=== PATIENT | female | born 1965 | race Caucasian/White ===

== ENCOUNTER → 2016-12-18 | Outpatient (CLI) | payer BC ==
--- NOTE | 2016-12-18 16:52 | US ---
EXAMINATION TYPE: US extremity nonvasc mass RT DATE OF EXAM: 12/18/2016 3:49 PM COMPARISON: NONE CLINICAL HISTORY: 51-year-old female R22.9 Mass in Right lower extremity. TECHNIQUE: Targeted sonographic examination of the patient's sites of 2 palpable abnormalities along the right thigh. FINDINGS: Patient has two palpable lumps on the right thigh. One is located laterally measuring 14 x 9 x 12 mm. A second is located at the mid thigh measuring 11 x 7 x 11 mm. Both of these are round and heterogeneously echogenic without internal vascularity and appear to be l ocated within the subcutaneous fat. IMPRESSION: Rounded echogenic areas measuring 1.4 and 1.1 cm within the subcutaneous fat corresponding to the 2 p alpable lumps along the right thigh. Correlate for possible lipomas. If the areas become symptomatic or there is growth, surgical excision can be considered.
== END | disposition home or self-care (01) ==
LOC: RADUSWWP 15:32
PROVIDERS: ATTEND Family Medicine
DX: R22.9 Localized swelling, mass and lump, unspecified (principal)

== ENCOUNTER → 2016-12-25 | Outpatient (CLI) | payer BC ==
[2016-12-25 10:53] LABS: Blood Urea Nitrogen 19 mg/dL (7-17); Non-African American GFR(MDRD) >60 (>60 ml/min/1.73 sqM)
--- NOTE | 2016-12-25 18:11 | MR ---
EXAMINATION TYPE: MR brain wo/w con DATE OF EXAM: 12/25/2016 11:45 AM COMPARISON: 09/18/2015 HISTORY: 51-year-old female with headaches TECHNIQUE: Multiplanar, multisequence images of the brain and brainstem were acquired before and aft er administration of 20 mL IV MultiHance. Diffusion weighted imaging is performed. FINDINGS: No evidence for acute infarction, hemorrhage, mass, mass effect, midline shift, herniation, effacemen t of basal cisterns, or extra-axial fluid collection. The ventricles and sulci are age-appropriate. Major intracranial flow voids are intact. T2/FLAIR weighted sequences show no white signal abnormality. Midline structures demonstrate normal morphology. The craniocervical junction is normal. Post contrast images demonstrate no evidence of pathologic enhancement. Dural venous sinuses are pat ent. The visualized sinuses are clear and the globes are intact. Slight leftward nasal septal deviation. IMPRESSION: No acute intracranial abnormality or abnormal white matter signal changes seen. No enhancing intracra nial lesions.
== END | disposition home or self-care (01) ==
LOC: RADMRIMAIN 10:23
PROVIDERS: ATTEND Psychiatry & Neurology Psychiatry
DX: R51 Headache (principal)
CPT/HCPCS: 70553; 82565; 84520

== ENCOUNTER → 2017-02-14 | Outpatient (CLI) | payer BC ==
[2017-02-14 15:55] VITALS: BP 153/82; PULSE 84; RESP 16; TEMP 98.4; BMI 37.0
--- NOTE | 2017-03-13 16:11 | P.PN ---
Progress Note - Text DATE OF SERVICE: 02/14/2017. CHIEF COMPLAINT: Bariatric assessment. HISTORY OF PRESENT ILLNESS: Ana Lilia Hayes is a 50-year-old female who comes in at 5 feet 4-1/4 inches. [place] body weight is 144 pounds. She comes in weighing 217 pounds. Her weight was 255 pounds. She has gained 9 pounds in 7 months. Overall total weight loss of 38 pounds despite dietary surveillance and counseling. Her percent excess weight loss is 34 %. Body mass index is reduced from 43.5 down to 37. She has history of gastroesophageal reflux. She comes in with persistent problems of panniculitis despite local treatment and skin care. Despite her initial success with weight loss including caloric restriction, she presents with chronic problems with maintaining her weight loss hence her presentation today. PAST SURGICAL HISTORY: 1. Obstructive sleep apnea. 2. Morbid obesity. 3. Chronic headaches. 4. Osteoarthritis of bilateral knees. 5. Osteoarthritis of the lower back. 6. Gastroesophageal reflux disease. 7. Prior history of DVT. 8. Anxiety. 9. Depression. PAST SURGICAL HISTORY: 1. Appendectomy. 2. Bilateral knee arthroscopies. 3. Multiple spinal lumbar punctures. 4. Sinus surgery. 5. Tonsillectomy. 6. Upper endoscopy. MEDICATIONS: 1. ( ). 2. Adipex. 3. Zofran. 4. Prilosec. 5. Multivitamin. 6. Toprol-XL. 7. Neurontin. 8. Flonase. 9. Lexapro. 10. Vitamin D. 11. ( ). 12. Biotin. 13. Xanax. 14. Nystatin powder. ALLERGIES: 1. DARVOCET. 2. ASPIRIN. 3. LAMICTAL. 4. OXYCODONE. 5. FLUOXETINE. SOCIAL HISTORY: Lifelong nontobacco user. FAMILY HISTORY: Pertinent for colon cancer in father in his early 40s. Had Sj'ogren's disease. No reports of esophageal or stomach cancer. His family history of esophageal dysphagia such as achalasia. REVIEW OF SYSTEMS: CONSTITUTIONAL:[place] body weight is 144 pounds. She comes in weighing 217 pounds. Her weight was 255 pounds. She has gained 9 pounds in 7 months. Overall total weight loss of 38 pounds despite dietary surveillance and counseling. Her percent excess weight loss is 34 %. Body mass index is reduced from 43.5 down to 37. GASTROINTESTINAL: Has history of gastroesophageal reflux. No reports of diarrhea. MUSCULOSKELETAL: Chronic pain of the bilateral knees. Has lower back pain as well as knee pain and bilateral foot pain, osteoarthritis. HEENT: No troubles with vision or hearing. No reports of active dysphagia. RESPIRATORY: Has chronic cough. Has obstructive sleep apnea. Prior history of bronchiectasis. CARDIOVASCULAR: No reports of recent chest pain, heart attack. NEURO: History of chronic headaches. She has been on work-up for her pseudotumor cerebri. Has multiple spinal taps. PSYCH: History of anxiety and depression. HEMATOLOGIC: Prior history of DVT. No reports of easy bruising or bleeding. PHYSICAL EXAM: VITAL SIGNS: 5 feet 4 and a quarter inches frame. Weight 217 pounds. Her body mass index 37.0 Vital Signs Temp 98.4 F 02/14/17 15:48 Pulse 84 02/14/17 15:48 Resp 16 02/14/17 15:48 BP 153/82 02/14/17 15:48 Pulse Ox . ABDOMEN: Soft, nontender, nondistended. GENERAL: Well-developed female in no acute distress. HEENT: No sclerae icterus. Extraocular movements grossly intact. Moist buccal mucosa. NECK: Supple without lymphadenopathy. CHEST: Nonlabored respirations. Equal bilateral excursions. CARDIOVASCULAR: Regular rate and rhythm. MUSCULOSKELETAL: No clubbing, cyanosis, or edema. NEURO: No focal or lateralizing signs. Cranial nerves II through XII grossly within normal limits. PSYCH: Appropriate affect. Alert and oriented to person, place and time. ASSESSMENT: 1. Morbid obesity due to excess caloric intake. 2. Body mass index reduced from 43.5 down to 37. 3. Osteoarthritis of the bilateral knees, secondary to morbid obesity. 4. Osteoarthritis of the bilateral feet, secondary to morbid obesity. 5. Osteoarthritis of the lower back, secondary to morbid obesity. 6. Obstructive sleep apnea. 7. Pseudotumor cerebri. 8. Anxiety. 9. Depression. 10. Prior personal history of DVT. 11. Food intolerance to eggs. 12. Familial history of colon cancer high risk. 13. Abnormal EKG. 14. Chronic cough. 15. Gastroesophageal reflux disease. 16. Vitamin D deficiency. 17. Hypertensive heart disease. 18. Gastritis. 19. Diaphragmatic hiatal hernia. 20. Panniculitis. 21. History of binge eating. 22. Family history of achalasia, esophageal dysmotility. PLAN: 1. Recommend completion of the bariatric profile including psych assessment. 2. Recommend completion of cardiac risk assessment. 3. Dietitian follow-up for nutrition classes. 4. Will need repeat bariatric blood work for nutritional deficiencies as her last is almost 1 year ago. 5. Medical risk assessment for her to procedure described. 6. She has family history of esophageal dysmotility including gastroesophageal reflux disease. Initially she was evaluating for the sleeve gastrectomy. Increased risk of esophageal dysmotility may occur and she as a result, she will evaluate her bariatric options.
== END | disposition home or self-care (01) ==
LOC: BARWHC3 14:23
PROVIDERS: ATTEND Surgery Plastic and Reconstructive Surgery
DX: Z48.815 Encounter for surgical aftercare following surgery on the digestive system (principal); E66.01 Morbid (severe) obesity due to excess calories; M17.0 Bilateral primary osteoarthritis of knee; M19.071 Primary osteoarthritis, right ankle and foot; M19.072 Primary osteoarthritis, left ankle and foot; M47.816 Spondylosis without myelopathy or radiculopathy, lumbar region; G47.33 Obstructive sleep apnea (adult) (pediatric); F41.9 Anxiety disorder, unspecified; F32.9 Major depressive disorder, single episode, unspecified; R05 Cough; G89.29 Other chronic pain; K21.9 Gastro-esophageal reflux disease without esophagitis; E55.9 Vitamin D deficiency, unspecified; K44.9 Diaphragmatic hernia without obstruction or gangrene; I11.9 Hypertensive heart disease without heart failure; K29.70 Gastritis, unspecified, without bleeding; Z68.37 Body mass index [BMI] 37.0-37.9, adult; Z86.718 Personal history of other venous thrombosis and embolism; Z98.84 Bariatric surgery status
CPT/HCPCS: 99211

== ENCOUNTER 2017-02-23 07:36 | Day surgery (SDC) | payer BC ==
[2017-02-21 14:50] VITALS: BMI 37.2
[~2017-02-23 07:36] MED LIST: DEXAMETHASONE SOD PHOSPHATE 10 MG/ML 1 ML VIAL IV ONE; HEPARIN SODIUM,PORCINE 5,000 UNIT/ML 1 ML VIAL SQ ONE; LACTATED RINGERS 1,000 ML IV SCH; LIDOCAINE 1% 20 ML VIAL (10MG/ML) FOR IV START INTRADERMA PRN; ONDANSETRON 4 MG/2 ML VIAL IVP ONE; Pre Op ABX Message 1 EACH MISC MISCELLANE ONE; SCOPOLAMINE 1.5MG/72HR PATCH TRANSDERM ONE; fentaNYL (PF) 50 MCG/ML 2 ML AMP IV PRN
[2017-02-23 07:58] VITALS: RESP 16; TEMP 97
--- NOTE | 2017-02-23 08:42 | P.GSHP ---
History of Present Illness H&P Date: 02/23/17 CHIEF COMPLAINT: Painful lesions along the right thigh. HISTORY OF PRESENT ILLNESS: The patient is a 51 year-old female with history of lipomas of the proximal thighs. She presents today for surgical excision. PAST MEDICAL HISTORY: Please see list. PAST SURGICAL HISTORY: Please see list. MEDICATIONS: Please see list. ALLERGIES: Please see list. SOCIAL HISTORY: No illicit drug use FAMILY HISTORY: No reports of Crohn disease or ulcerative colitis. REVIEW OF ORGAN SYSTEMS: CONSTITUTIONAL: No reports of fevers or chills. GI: Denies any blood in stools or constipation. PHYSICAL EXAM: VITAL SIGNS: Stable Musculoskeletal: Approximately 1 cm lipomas, superficial, along the right thigh. GENERAL: Well developed and in no acute distress. Pleasant. HEENT: No sclera icterus. Extraocular movements grossly intact. Moist buccal mucosa. Head is atraumatic, normocephalic. Hears conversational speech. No nasal drainage. NECK: Supple without lymphadenopathy. No JV distention. CHEST: Non-labored respirations and equal bilateral excursions. CARDIOVASCULAR: Regular rate and rhythm. Palpable 2+ radial pulses. ABDOMEN: Soft. Non-tender. Nondistended. NEUROLOGIC: No focal or lateralizing signs. PSYCH: Appropriate affect. Alert and oriented to person, place and time. STUDIES: Ultrasound: Reviewed and demonstrated no overt abnormalities. ASSESSMENT: 1. Lipomas along the thighs. PLAN: 1. Will proceed of excision of subcutaneous tumors along the thigh. 2. DVT prophylaxis. 3. Antibiotic prophylaxis. 4. Time of recovery, at least one week. 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 Grandfather colon cancer age 40 Sister(s) Family Medical History: Blood Disorder, Deep Vein Thrombosis (DVT) Additional Family Medical History / Comment(s): factor V Medications and Allergies Home Medications Medication Instructions Recorded Confirmed Type ALPRAZolam [Xanax] 0.5 mg PO HS 04/30/14 02/21/17 History Escitalopram [Lexapro] 30 mg PO QAM 02/23/16 02/21/17 History Fluticasone Propionate [Flonase 2 spray EA NOSTRIL BID PRN 02/23/16 02/21/17 History Allergy Relief] Multivitamins, Thera [Multivitamin] 1 tab PO DAILY 02/23/16 02/21/17 History Omeprazole [PriLOSEC] 40 mg PO QAM 02/23/16 02/21/17 History Biotin 5 mg PO DAILY 02/28/16 02/21/17 History CHLORPHEN-HYDROcod 8-10mg/5ml 5 ml PO Q12HR PRN 02/28/16 02/21/17 History [Tussionex] Gabapentin [Neurontin] 1,600 mg PO BID 02/28/16 02/21/17 History Cholecalciferol [Vitamin D3] 1 tab PO DAILY 07/20/16 02/21/17 History Metoprolol Succinate [Toprol XL] 12.5 mg PO BID 07/20/16 02/21/17 History Ondansetron HCl [Zofran] 8 mg PO Q8H PRN 07/20/16 02/21/17 History Cyclobenzaprine [Flexeril] 10 mg PO HS 02/14/17 02/21/17 History Allergies Allergy/AdvReac Type Severity Reaction Status Date / Time lamotrigine [From Lamictal] Allergy Rash/Hives Verified 02/23/17 07:49 oxycodone HCl [From Percodan] Allergy Itching Verified 02/23/17 07:49 oxycodone terephthalate Allergy Itching Verified 02/23/17 07:49 [From Percodan] propoxyphene napsylate Allergy Itching Verified 02/23/17 07:49 [From Darvocet-N] Surgical - Exam Vital Signs Temp Pulse Resp BP Pulse Ox 97.0 F L 75 16 133/92 97 02/23/17 07:56 02/23/17 07:56 02/23/17 07:56 02/23/17 07:56 02/23/17 07:56
[2017-02-23] MEDS ORDERED: LIDOCAINE 1% INJ 10MG/ML (20 ML MDV) ONE (09:05)
[2017-02-23] MEDS ORDERED: MIDAZOLAM 2 MG/2 ML VIAL ONE (09:05)
[2017-02-23] MEDS ORDERED: PROPOFOL 10 MG/ML 20 ML VIAL IV ONE (09:05)
[2017-02-23] MEDS ORDERED: fentaNYL (PF) 50 MCG/ML 2 ML AMP ONE (09:05)
[2017-02-23] MEDS ORDERED: BUPIVACAIN-EPI 0.25%-1:200,000 30 ML VIAL SQ ONE (09:34)
--- NOTE | 2017-02-23 10:03 | P.PCN ---
Date of Procedure: 02/23/17 Preoperative Diagnosis: Thigh tumors Postoperative Diagnosis: Same Procedure(s) Performed: Excision of right thigh tumors 1.5 and 1.3 cm, subcutaneous Implants: Anesthesia: MAC, local Surgeon: Jeni Lentz Estimated Blood Loss (ml): 2 Pathology: other (Right thigh tumors) Condition: stable Disposition: same day Indications for Procedure: Operative Findings: Description of Procedure:
[2017-02-23] MEDS ORDERED: NALOXONE 0.4 MG/ML 1 ML VIAL IV PRN (10:05)
[2017-02-23 10:41] VITALS: BP 124/78; PULSE 72
== END 2017-02-23 11:02 | disposition home or self-care (01) ==
LOC: OR 07:36
PROVIDERS: ATTEND Surgery Plastic and Reconstructive Surgery
DX: D17.23 Benign lipomatous neoplasm of skin and subcutaneous tissue of right leg (principal); I10 Essential (primary) hypertension; G47.33 Obstructive sleep apnea (adult) (pediatric); Z99.89 Dependence on other enabling machines and devices; K21.9 Gastro-esophageal reflux disease without esophagitis; F32.9 Major depressive disorder, single episode, unspecified; Z79.899 Other long term (current) drug therapy; Z88.5 Allergy status to narcotic agent; Z88.8 Allergy status to other drugs, medicaments and biological substances
CPT/HCPCS: 88304; 11403; J2250; J1100; J2405; J2001; J3010; J2704

== ENCOUNTER → 2017-03-21 | Outpatient (CLI) | payer BC ==
[2017-03-21 15:50] VITALS: BP 121/63; PULSE 86; RESP 16; TEMP 98.4; BMI 38.8
--- NOTE | 2017-04-21 11:52 | P.PN ---
Progress Note - Text DATE OF SERVICE: 03/21/2017. CHIEF COMPLAINT: Bariatric assessment. HISTORY OF PRESENT ILLNESS: Ana Lilia Hayes is a 50-year-old female who has long -standing history with overweight. In one month she has gained 11 pounds. At her height of 5 feet 4-1/4 inches, her ideal body weight is 144 pounds. She comes in weighing 227 pounds. Her highest weight was 255 pounds. She is 83 pounds overweight. Her body mass index is reduced from 43.5 down to 38.8. She additionally had excision of lipomas along the thigh for painful lesions. She is recovering well. She reports family history of gallbladder disorder. Despite her multiple attempts at weight loss, she presents today for evaluation of gastric bypass to address her gastroesophageal reflux disease includuing troubles with swallowing. PAST SURGICAL HISTORY: 1. Obstructive sleep apnea. 2. Morbid obesity. 3. Chronic headaches. 4. Osteoarthritis of bilateral knees. 5. Osteoarthritis of the lower back. 6. Gastroesophageal reflux disease. 7. Prior history of DVT. 8. Anxiety. 9. Depression. 10. Lipomas along the lower thighs. PAST SURGICAL HISTORY: 1. Appendectomy. 2. Bilateral knee arthroscopies. 3. Multiple spinal lumbar punctures. 4. Sinus surgery. 5. Tonsillectomy. 6. Upper endoscopy. 7. Excision of lipoma of the thighs. MEDICATIONS: 1. ( ). 2. Adipex. 3. Zofran. 4. Prilosec. 5. Multivitamin. 6. Toprol-XL. 7. Neurontin. 8. Flonase. 9. Lexapro. 10. Vitamin D. 11. ( ). 12. Biotin. 13. Xanax. 14. Nystatin powder. ALLERGIES: 1. DARVOCET. 2. ASPIRIN. 3. LAMICTAL. 4. OXYCODONE. 5. FLUOXETINE. SOCIAL HISTORY: Lifelong nontobacco user. FAMILY HISTORY: Pertinent for colon cancer in father in his early 40s. Had Sj'ogren's disease. No reports of esophageal or stomach cancer. His family history of esophageal dysphagia such as achalasia. REVIEW OF SYSTEMS: CONSTITUTIONAL: At her height of 5 feet 4-1/4 inches, her ideal body weight is 144 pounds. She comes in weighing 227 pounds. Her highest weight was 255 pounds. She is 83 pounds overweight. Her body mass index is reduced from 43.5 down to 38.8. GASTROINTESTINAL: Has history of gastroesophageal reflux. No reports of diarrhea. MUSCULOSKELETAL: Chronic pain of the bilateral knees. Has lower back pain as well as knee pain and bilateral foot pain, osteoarthritis. HEENT: No troubles with vision or hearing. No reports of active dysphagia. RESPIRATORY: Has chronic cough. Has obstructive sleep apnea. Prior history of bronchiectasis. CARDIOVASCULAR: No reports of recent chest pain, heart attack. NEURO: History of chronic headaches. She has been on work-up for her pseudotumor cerebri. Has multiple spinal taps. PSYCH: History of anxiety and depression. HEMATOLOGIC: Prior history of DVT. No reports of easy bruising or bleeding. SKIN: History of skin lipomas. No history of skin cancer. PHYSICAL EXAM: VITAL SIGNS: 5 feet 4 and a quarter inches frame. Weight 227 pounds. Her body mass index 38.8 Vital Signs Temp 98.4 F 03/21/17 15:40 Pulse 86 03/21/17 15:40 Resp 16 03/21/17 15:40 BP 121/63 03/21/17 15:40 Pulse Ox ABDOMEN: Soft, nontender, nondistended. GENERAL: Well-developed female in no acute distress. HEENT: No sclerae icterus. Extraocular movements grossly intact. Moist buccal mucosa. NECK: Supple without lymphadenopathy. CHEST: Nonlabored respirations. Equal bilateral excursions. CARDIOVASCULAR: Regular rate and rhythm. MUSCULOSKELETAL: No clubbing, cyanosis, or edema. NEURO: No focal or lateralizing signs. Cranial nerves II through XII grossly within normal limits. PSYCH: Appropriate affect. Alert and oriented to person, place and time. SKIN: Incisions granulated. No signs of infection. ASSESSMENT: 1. Morbid obesity due to excess caloric intake. 2. Body mass index reduced from 43.5 down to 38.8. 3. Osteoarthritis of the bilateral knees, secondary to morbid obesity. 4. Osteoarthritis of the bilateral feet, secondary to morbid obesity. 5. Osteoarthritis of the lower back, secondary to morbid obesity. 6. Obstructive sleep apnea. 7. Pseudotumor cerebri. 8. Anxiety. 9. Depression. 10. Prior personal history of DVT. 11. Familial history of colon cancer high risk. 12. Gastroesophageal reflux disease. 13. Vitamin D deficiency. 14. Hypertensive heart disease. 15. Gastritis. 16. Diaphragmatic hiatal hernia. 17. Panniculitis. 18. History of binge eating. 19. Family history of achalasia, esophageal dysmotility. PLAN: 1. With her family history of esophageal disorder and personal history of gastroesophageal reflux disease, she is evaluating for a Juan Manuel-en-Y gastric bypass. 2. She had recent surgery within the last 30 days. Surgical intervention will be deferred at least 30 days following her index operation. 3. Benefits and risks of gastric bypass were reviewed including bleeding, infection, need for further surgery, need for revision including possibility of sleeve gastrectomy. 4. Inpatient hospitalization anticipated for at least over 2 days. 5. DVT prophylaxis. 6. Antibiotic prophylaxis.
== END | disposition home or self-care (01) ==
LOC: BARWHC3 14:51
PROVIDERS: ATTEND Surgery Plastic and Reconstructive Surgery
DX: Z01.818 Encounter for other preprocedural examination (principal); E66.01 Morbid (severe) obesity due to excess calories; M17.0 Bilateral primary osteoarthritis of knee; M19.072 Primary osteoarthritis, left ankle and foot; M19.071 Primary osteoarthritis, right ankle and foot; M47.816 Spondylosis without myelopathy or radiculopathy, lumbar region; G47.33 Obstructive sleep apnea (adult) (pediatric); G93.2 Benign intracranial hypertension; F41.9 Anxiety disorder, unspecified; F32.9 Major depressive disorder, single episode, unspecified; Z68.38 Body mass index [BMI] 38.0-38.9, adult; K21.9 Gastro-esophageal reflux disease without esophagitis; E55.9 Vitamin D deficiency, unspecified; K29.70 Gastritis, unspecified, without bleeding; K44.9 Diaphragmatic hernia without obstruction or gangrene; M79.3 Panniculitis, unspecified; Z79.899 Other long term (current) drug therapy; Z88.5 Allergy status to narcotic agent; Z88.6 Allergy status to analgesic agent; Z88.8 Allergy status to other drugs, medicaments and biological substances
CPT/HCPCS: 99211

== ENCOUNTER → 2017-04-17 | Outpatient (CLI) | payer BC ==
[2017-04-17 12:31] LABS: Appearance,Urine Clear (Clear); Bilirubin,Urine Negative (Negative); Glucose,Urine (UA) Negative (Negative); Ketones,Urine Negative (Negative); Leukocyte Esterase,Urine Negative (Negative); Nitrite,Urine Negative (Negative); PH, Urine 5.5 (5.0-8.0); Protein,Urine Negative (Negative); Specific Gravity,Urine 1.021 (1.001-1.035); UA Billing (MACRO vs. MICRO) CHEM; Urobilinogen,Urine <2.0 mg/dL (<2.0)
== END ==
LOC: LABWHC1 11:11
PROVIDERS: ATTEND Psychiatry & Neurology Psychiatry
DX: E03.9 Hypothyroidism, unspecified (principal); Z79.899 Other long term (current) drug therapy
CPT/HCPCS: 36415; 80307; 81003; 84439; 84443

== ENCOUNTER → 2017-04-17 | Outpatient (CLI) | payer BC ==
[2017-04-17 12:02] LABS: Basophils # (A) 0.1 k/uL (0-0.2); Basophils % (A) 1 %; CH 28.2; CHCM 32.3; Eosinophils # (A) 0.1 k/uL (0-0.7); Eosinophils % (A) 2 %; HCT 50.3 % (34.0-46.0); HDW 2.49; HGB 15.6 gm/dL (11.4-16.0); Luc # (Auto) 0.17; Luc % (Auto) 3; Lymphocytes % (A) 33 %; MCH 27.2 pg (25.0-35.0); MCHC 30.9 g/dL (31.0-37.0); MCV 87.8 fL (80.0-100.0); Mean Platelet Volume 7.8; Monocytes # (A) 0.3 k/uL (0-1.0); Monocytes % (A) 5 %; Neutrophils # (A) 3.3 k/uL (1.3-7.7); Neutrophils % (A) 56 %; RBC 5.73 m/uL (3.80-5.40); RDW 13.8 % (11.5-15.5); WBC 5.9 k/uL (3.8-10.6)
[2017-04-17 12:15] LABS: ALT 37 U/L (9-52); AST 27 U/L (14-36); Alkaline Phosphatase 86 U/L (38-126); Anion Gap 5 mmol/L; Blood Urea Nitrogen 14 mg/dL (7-17); Calcium 9.6 mg/dL (8.4-10.2); Carbon Dioxide 31 mmol/L (22-30); Chloride 105 mmol/L (98-107); Glucose 98 mg/dL (74-99); Non-African American GFR(MDRD) >60 (>60 ml/min/1.73 sqM); Potassium 4.6 mmol/L (3.5-5.1); Sodium 141 mmol/L (137-145); Total Bilirubin 0.3 mg/dL (0.2-1.3); Total Protein 6.4 g/dL (6.3-8.2)
== END ==
LOC: LABPAT 11:03
PROVIDERS: ATTEND Surgery Plastic and Reconstructive Surgery
DX: Z01.812 Encounter for preprocedural laboratory examination (principal)
CPT/HCPCS: 36415; 80053; 85025

== ENCOUNTER 2017-05-11 07:30 | Inpatient (IN) | payer BC ==
[~2017-05-11 07:30] MED LIST changes: +ENOXAPARIN 40 MG/0.4 ML SYRINGE SQ ONE; -HEPARIN SODIUM,PORCINE 5,000 UNIT/ML 1 ML VIAL SQ ONE; -LACTATED RINGERS 1,000 ML IV SCH; -LIDOCAINE 1% 20 ML VIAL (10MG/ML) FOR IV START INTRADERMA PRN; +MIDAZOLAM 2 MG/2 ML VIAL IV PRN; -Pre Op ABX Message 1 EACH MISC MISCELLANE ONE; +ceFAZolin 2 GM in SODIUM CHLORIDE 0.9% 100 ML IVPB ONE
[2017-05-11] MEDS ORDERED: CHLORHEXIDINE GLUCONATE 15 ML CUP MUCOUS MEM ONE (11:28)
[2017-05-11] MEDS ORDERED: ACETAMINOPHEN IV (For NPO) 1,000 MG in EMPTY BAG 1 BAG IVPB STA (11:31)
[2017-05-11] MEDS ORDERED: ENOXAPARIN 40 MG/0.4 ML SYRINGE SQ STA (11:32)
[2017-05-11] MEDS ORDERED: PANTOPRAZOLE 40 MG/10 ML VIAL IV STA (11:32)
[2017-05-11] MEDS ORDERED: LIDOCAINE 1% 20 ML VIAL (10MG/ML) FOR IV START INTRADERMA ONE (11:47)
[2017-05-11] MEDS: LACTATED RINGERS 1,000 ML IV SCH (11:47)
--- NOTE | 2017-05-11 12:48 | P.GSHP ---
History of Present Illness H&P Date: 05/11/17 DATE OF SERVICE: 05/11/2017. CHIEF COMPLAINT: Bariatric assessment. HISTORY OF PRESENT ILLNESS: Ana Lilia Hayes is a 50-year-old female who comes in at 5 feet 4-1/4 inches. [place] body weight is 144 pounds. She comes in weighing 214 pounds. Her weight was 255 pounds. Body mass index is reduced from 43.5 down to 37. She has history of gastroesophageal reflux. She comes in with persistent problems of panniculitis despite local treatment and skin care. Despite her initial success with weight loss including caloric restriction, she presents with chronic problems with maintaining her weight loss hence her presentation today. Seperately, she developed hypertension including shortness sleep apnea has comorbidities of obesity. PAST SURGICAL HISTORY: 1. Obstructive sleep apnea. 2. Morbid obesity. 3. Chronic headaches. 4. Osteoarthritis of bilateral knees. 5. Osteoarthritis of the lower back. 6. Gastroesophageal reflux disease. 7. Prior history of DVT. 8. Anxiety. 9. Depression. PAST SURGICAL HISTORY: 1. Appendectomy. 2. Bilateral knee arthroscopies. 3. Multiple spinal lumbar punctures. 4. Sinus surgery. 5. Tonsillectomy. 6. Upper endoscopy. MEDICATIONS: 1. ( ). 2. Adipex. 3. Zofran. 4. Prilosec. 5. Multivitamin. 6. Toprol-XL. 7. Neurontin. 8. Flonase. 9. Lexapro. 10. Vitamin D. 11. ( ). 12. Biotin. 13. Xanax. 14. Nystatin powder. ALLERGIES: 1. DARVOCET. 2. ASPIRIN. 3. LAMICTAL. 4. OXYCODONE. 5. FLUOXETINE. SOCIAL HISTORY: Lifelong nontobacco user. FAMILY HISTORY: Pertinent for colon cancer in father in his early 40s. Had Sj'ogren's disease. No reports of esophageal or stomach cancer. His family history of esophageal dysphagia such as achalasia. REVIEW OF SYSTEMS: CONSTITUTIONAL:[place] body weight is 144 pounds. She comes in weighing 214 pounds. Her weight was 255 pounds. Body mass index is reduced from 43.5 down to 37. GASTROINTESTINAL: Has history of gastroesophageal reflux. No reports of diarrhea. MUSCULOSKELETAL: Chronic pain of the bilateral knees. Has lower back pain as well as knee pain and bilateral foot pain, osteoarthritis. HEENT: No troubles with vision or hearing. No reports of active dysphagia. RESPIRATORY: Has chronic cough. Has obstructive sleep apnea. Prior history of bronchiectasis. CARDIOVASCULAR: No reports of recent chest pain, heart attack. NEURO: History of chronic headaches. She has been on work-up for her pseudotumor cerebri. Has multiple spinal taps. PSYCH: History of anxiety and depression. HEMATOLOGIC: Prior history of DVT. No reports of easy bruising or bleeding. PHYSICAL EXAM: VITAL SIGNS: 5 feet 4 and a quarter inches frame. Weight 214 pounds. Her body mass index 37.0 Vital Signs Temp 97.2 F L 05/11/17 11:45 Pulse 92 05/11/17 11:45 Resp 16 05/11/17 11:45 BP 160/81 05/11/17 11:45 Pulse Ox 94 L 05/11/17 11:45 Intake & Output 05/10/17 05/11/17 05/11/17 18:59 06:59 18:59 Weight 97.2 kg . ABDOMEN: Soft, nontender, nondistended. GENERAL: Well-developed female in no acute distress. HEENT: No sclerae icterus. Extraocular movements grossly intact. Moist buccal mucosa. NECK: Supple without lymphadenopathy. CHEST: Nonlabored respirations. Equal bilateral excursions. CARDIOVASCULAR: Regular rate and rhythm. MUSCULOSKELETAL: No clubbing, cyanosis, or edema. NEURO: No focal or lateralizing signs. Cranial nerves II through XII grossly within normal limits. PSYCH: Appropriate affect. Alert and oriented to person, place and time. ASSESSMENT: 1. Morbid obesity due to excess caloric intake. 2. Body mass index reduced from 43.5 down to 37. 3. Osteoarthritis of the bilateral knees, secondary to morbid obesity. 4. Osteoarthritis of the bilateral feet, secondary to morbid obesity. 5. Osteoarthritis of the lower back, secondary to morbid obesity. 6. Obstructive sleep apnea. 7. Pseudotumor cerebri. 8. Anxiety. 9. Depression. 10. Prior personal history of DVT. 11. Food intolerance to eggs. 12. Familial history of colon cancer high risk. 13. Abnormal EKG. 14. Chronic cough. 15. Gastroesophageal reflux disease. 16. Vitamin D deficiency. 17. Hypertensive heart disease. 18. Gastritis. 19. Diaphragmatic hiatal hernia. 20. Panniculitis. 21. History of binge eating. 22. Family history of achalasia, esophageal dysmotility. PLAN: 1. A second generation bariatric consent form was reviewed in detail where she selected for Juan Manuel-en-Y gastric bypass. 2. Benefits and risks of a gastric bypass in detail reviewed. She demonstrated understanding of the risks. 3. DVT prophylaxis. 4. Antibiotic prophylaxis. 5. Inpatient hospitalization over 2 nights advised. 6. She has completed a two-week protein diet losing effectively 12 pounds. Past Medical History Past Medical History: Deep Vein Thrombosis (DVT), GERD/Reflux, Hypertension, Neurologic Disorder, Sleep Apnea/CPAP/BIPAP Additional Past Medical History / Comment(s): chronic headache, gets Botox injections for pain History of Any Multi-Drug Resistant Organisms: None Reported Past Surgical History: Appendectomy, Orthopedic Surgery, Tonsillectomy Additional Past Surgical History / Comment(s): sinus surgery, papito knee surgery, papito carpal tunnel, EGD Past Anesthesia/Blood Transfusion Reactions: Postoperative Nausea & Vomiting ( PONV) Smoking Status: Never smoker - Past Family History Mother Additional Family Medical History / Comment(s): Schrogrens dx. Grandfather colon cancer age 40 Sister(s) Family Medical History: Blood Disorder, Deep Vein Thrombosis (DVT) Additional Family Medical History / Comment(s): factor V Medications and Allergies Home Medications Medication Instructions Recorded Confirmed Type ALPRAZolam [Xanax] 0.5 mg PO HS 04/30/14 05/11/17 History Escitalopram [Lexapro] 30 mg PO QAM 02/23/16 05/01/17 History Fluticasone Propionate [Flonase 2 spray EA NOSTRIL BID PRN 02/23/16 05/11/17 History Allergy Relief] Multivitamins, Thera [Multivitamin] 1 tab PO DAILY 02/23/16 05/01/17 History Omeprazole [PriLOSEC] 40 mg PO QAM 02/23/16 05/01/17 History Biotin 5 mg PO DAILY 02/28/16 05/01/17 History CHLORPHEN-HYDROcod 8-10mg/5ml 5 ml PO Q12HR PRN 02/28/16 05/11/17 History [Tussionex] Gabapentin [Neurontin] 1,600 mg PO BID 02/28/16 05/01/17 History Cholecalciferol [Vitamin D3] 1 tab PO DAILY 07/20/16 05/01/17 History Ondansetron HCl [Zofran] 8 mg PO Q8H PRN 07/20/16 05/11/17 History Cyclobenzaprine [Flexeril] 10 mg PO HS 02/14/17 05/11/17 History HYDROmorphone HCL [Dilaudid] 4 mg PO BID PRN 03/21/17 05/11/17 History Melatonin 10 mg PO HS PRN 05/01/17 05/01/17 History Metoprolol Tartrate [Lopressor] 12.5 mg PO BID 05/01/17 05/01/17 History Nystatin 100,000 Unit/gm Powd 1 applic TOPICAL BID PRN 05/01/17 05/01/17 History [Mycostatin Powder] Allergies Allergy/AdvReac Type Severity Reaction Status Date / Time lamotrigine [From Lamictal] Allergy Rash/Hives Verified 05/11/17 11:25 oxycodone HCl [From Percodan] AdvReac Itching Verified 05/11/17 11:25 oxycodone terephthalate AdvReac Itching Verified 05/11/17 11:25 [From Percodan] propoxyphene napsylate AdvReac Itching Verified 05/11/17 11:25 [From Darvocet-N] Surgical - Exam Vital Signs Temp Pulse Resp BP Pulse Ox 97.2 F L 92 16 160/81 94 L 05/11/17 11:45 05/11/17 11:45 05/11/17 11:45 05/11/17 11:45 05/11/17 11:45
[2017-05-11] MEDS ORDERED: PROPOFOL 10 MG/ML 20 ML VIAL IV ONE (13:12)
[2017-05-11] MEDS ORDERED: LIDOCAINE 1% INJ 10MG/ML (20 ML MDV) ONE (13:12)
[2017-05-11] MEDS ORDERED: MEPERIDINE 50 MG/ML SYRINGE ONE (13:12)
[2017-05-11] MEDS ORDERED: SUCCINYLCHOLINE CHLORIDE 100 MG/5 ML SYR IV ONE (13:12)
[2017-05-11] MEDS ORDERED: ROCURONIUM BROMIDE 10 MG/ML 10 ML VIAL IV ONE (13:12)
[2017-05-11] MEDS ORDERED: GLYCOPYRROLATE 0.2 MG/ML 2 ML VIAL ONE (13:12)
[2017-05-11] MEDS ORDERED: NEOSTIGMINE 1 MG/ML 10 ML VIAL ONE (13:12)
[2017-05-11] MEDS ORDERED: MIDAZOLAM 2 MG/2 ML VIAL ONE (13:12)
[2017-05-11] MEDS ORDERED: fentaNYL (PF) 50 MCG/ML 2 ML AMP ONE (13:12)
[2017-05-11] MEDS ORDERED: LIDOCAINE 2%-EPI 1:100,000 20 ML VIAL SQ ONE ×2 (13:50→14:22)
[2017-05-11] MEDS ORDERED: LACTATED RINGERS 1,000 ML IV ONE ×2 (14:13→15:01)
--- NOTE | 2017-05-11 15:30 | P.PCN ---
Date of Procedure: 05/11/17 Preoperative Diagnosis: Morbid obesity, hypertension, obstructive sleep apnea, gastric reflux disease and Postoperative Diagnosis: Same, lower abdominal pelvic adhesions Procedure(s) Performed: 1. Laparoscopic gastric bypass 100 cm with 25 mm Orvil, antecolic antegastric 2. Laparoscopic lysis of adhesions over 35 minutes. Implants: Anesthesia: GETA, local (10 mls of 0.5% Marcaine with epinephrine) Surgeon: Jeni Lentz Estimated Blood Loss (ml): 10 Pathology: none sent Condition: stable Disposition: floor Indications for Procedure: Operative Findings: 1. Negative leak test. 2. Generous doughnuts. 3. Gastric pouch created with 60 mm purple loads 3, 1-45 mm stapler 4. Thoracic length 18.5 cm. Description of Procedure:
[2017-05-11] MEDS ORDERED: NALOXONE 0.4 MG/ML 1 ML VIAL IV PRN (15:33)
[2017-05-11] MEDS ORDERED: ACETAMINOPHEN IV (For NPO) 1,000 MG in EMPTY BAG 1 BAG IVPB ONE (15:33)
[2017-05-11] MEDS ORDERED: ACETAMINOPHEN ORAL SUSP 160 MG/5 ML CUP PO PRN (15:36)
[2017-05-11] MEDS ORDERED: MEPERIDINE 50 MG/ML SYRINGE IVP ONE ×2 (15:59→16:30)
[2017-05-11 17:49] VITALS: BMI 36.8
[2017-05-11] MEDS ORDERED: AMPICILLIN-SULBACTAM 3 GM in SODIUM CHLORIDE 0.9% 100 ML IVPB SCH (18:00)
--- NOTE | 2017-05-11 18:35 | P.PN ---
Progress Note - Text Patient seen and evaluated this evening. She reports mild nausea. Her pain is under control. She reports pressure sensation from her Roper catheter. Recommend discontinue Roper as her urine is clear. Also may start bariatric clears. Scopolamine patch for nausea.
[2017-05-11] MEDS: HYOSCYAMINE ORAL DROPS 1.875 MG/15 ML BOTTLE PO SCH (18:38)
[2017-05-11] MEDS: SIMETHICONE 40 MG/0.6 ML DROPS 2,000 MG/30 ML BOTTLE PO SCH (18:38)
[2017-05-11] MEDS ORDERED: SCOPOLAMINE 1.5MG/72HR PATCH TRANSDERM SCH (18:45)
[2017-05-11] MEDS: ALBUTEROL NEBULIZED 2.5 MG/3 ML INHALATION SCH ×2 (18:56→19:59)
[2017-05-11] MEDS: 0.9% NACL WITH KCL 20 MEQ/L 1,000 ML IV SCH (21:25)
[2017-05-11] MEDS: fentaNYL PCA 300 MCG/30 ML SYRINGE IV PRN (21:28)
[2017-05-12] MEDS: AMPICILLIN-SULBACTAM 3 GM in SODIUM CHLORIDE 0.9% 100 ML IVPB SCH ×2 (00:47→06:18)
[2017-05-12] MEDS: HYOSCYAMINE ORAL DROPS 1.875 MG/15 ML BOTTLE PO SCH ×5 (01:18→23:12)
[2017-05-12] MEDS: SIMETHICONE 40 MG/0.6 ML DROPS 2,000 MG/30 ML BOTTLE PO SCH ×5 (01:19→23:13)
[2017-05-12] MEDS: 0.9% NACL WITH KCL 20 MEQ/L 1,000 ML IV SCH ×3 (01:21→17:34)
[2017-05-12] MEDS: fentaNYL PCA 300 MCG/30 ML SYRINGE IV PRN ×5 (02:09→21:42)
[2017-05-12] MEDS: LACTATED RINGERS 1,000 ML IV SCH (05:50)
[2017-05-12 06:59] LABS: Basophils % (A) 0 %; CH 28.7; CHCM 33.7; Eosinophils % (A) 0 %; HDW 2.68; HGB 13.7 gm/dL (11.4-16.0); Luc # (Auto) 0.16; Luc % (Auto) 2; Lymphocytes # (A) 1.2 k/uL (1.0-4.8); Lymphocytes % (A) 13 %; MCH 27.9 pg (25.0-35.0); MCHC 32.6 g/dL (31.0-37.0); MCV 85.5 fL (80.0-100.0); Mean Platelet Volume 8.7; Monocytes # (A) 0.6 k/uL (0-1.0); Monocytes % (A) 6 %; Neutrophils # (A) 7.9 k/uL (1.3-7.7); Neutrophils % (A) 80 %; RBC 4.91 m/uL (3.80-5.40); RDW 13.9 % (11.5-15.5); WBC 9.9 k/uL (3.8-10.6); WBC (Perox) 10.78
[2017-05-12 07:15] LABS: Anion Gap 8 mmol/L; Blood Urea Nitrogen 11 mg/dL (7-17); Calcium 9.2 mg/dL (8.4-10.2); Carbon Dioxide 28 mmol/L (22-30); Chloride 105 mmol/L (98-107); Magnesium 1.6 mg/dL (1.6-2.3); Non-African American GFR(MDRD) >60 (>60 ml/min/1.73 sqM); Phosphorous 2.8 mg/dL (2.5-4.5); Potassium 5.1 mmol/L (3.5-5.1); Sodium 141 mmol/L (137-145)
[2017-05-12] MEDS ORDERED: TAMSULOSIN 0.4 MG CAP.ER.24H PO STA ×2 (08:19→12:54)
[2017-05-12] MEDS ORDERED: HYDROmorphone 2 MG TAB PO PRN (08:26)
[2017-05-12] MEDS ORDERED: FLUTICASONE 50MCG/SPRAY NASAL 16GM EA NOSTRIL PRN (08:26)
[2017-05-12] MEDS ORDERED: CHLORPHEN-HYDROcod 8-10mg/5ml 5 ML ORAL.SYRG PO PRN (08:26)
[2017-05-12] MEDS ORDERED: MELATONIN 5 MG TABLET PO PRN (08:26)
[2017-05-12] MEDS: ALBUTEROL NEBULIZED 2.5 MG/3 ML INHALATION SCH ×4 (09:05→21:34)
[2017-05-12] MEDS: MAGNESIUM SULFATE-D5W PMX 1 GM in DEXTROSE/WATER 1 100ML.BAG IVPB SCH ×4 (09:08→17:30)
[2017-05-12] MEDS: ESCITALOPRAM 10 MG TAB PO SCH (09:46)
[2017-05-12] MEDS: METOPROLOL TARTRATE 12.5 MG TAB PO SCH ×2 (09:46→21:30)
[2017-05-12] MEDS: PANTOPRAZOLE 40 MG/10 ML VIAL IV SCH (11:24)
[2017-05-12] MEDS: ENOXAPARIN 40 MG/0.4 ML SYRINGE SQ SCH (11:24)
[2017-05-12] MEDS: 1: MVI, ADULT NO.4 WITH VIT K 10 ML, THIAMINE 100 MG, FOLIC ACID 1 MG, POTASSIUM CHLORID IV SCH ×12 (14:59→21:39)
[2017-05-12] MEDS ORDERED: SODIUM CHLORIDE 0.9% 1,000 ML BAG ONE (14:59)
[2017-05-12] MEDS ORDERED: CYCLOBENZAPRINE 10 MG TAB PO SCH (21:00)
--- NOTE | 2017-05-12 21:23 | P.PN ---
Subjective Principal diagnosis: Morbid obesity The patient is status post gastric bypass, postop day 1. No reports of fevers or chills. She had urinary retention. She is tolerating liquids. Her nausea is moderately improved. She is concerned about developing coughing however she denies any gastroesophageal reflux which is now moderately improved since surgery. Objective - Vital Signs Vital signs: Vital Signs Temp 98.1 F 05/12/17 14:58 Pulse 91 05/12/17 14:58 Resp 16 05/12/17 14:58 BP 113/68 05/12/17 14:58 Pulse Ox 94 L 05/12/17 14:58 Intake & Output 05/12/17 05/12/17 05/13/17 06:59 18:59 06:59 Intake Total 2150 1400 Output Total 1320 400 Balance 830 1000 Intake: IV 2000 0.9% NaCl with KCl 20 Meq 2000 /l 1,000 ml @ 100 mls/hr IV .BY DURATION EARNESTINE Rx#: [id number] Intake, IV Titration 1400 Amount 0.9% NaCl with KCl 20 Meq 300 /l 1,000 ml @ 150 mls/hr IV .Q6H40M EARNESTINE Rx#: [id number] Ampicillin-Sulbactam 3 gm 100 In Sodium Chloride 0.9% 100 ml @ 100 mls/hr IVPB Q6H EARNESTINE Rx#:[id number] Magnesium Sulfate-D5w Pmx 400 1 gm In Dextrose/Water 1 100ml.bag @ 100 mls/hr IVPB Q1H EARNESTINE Rx#: [id number] Mvi, Adult No.4 with Vit 600 K 10 ml Thiamine 100 mg Folic Acid 1 mg Potassium Chloride 20 meq In Sodium Chloride 0.9% 1, 000 ml @ 100 mls/hr IV . BY DURATION EARNESTINE Rx#: [id number] Oral 150 Output: Urine 1320 400 Straight 400 Other: Voiding Method Toilet Toilet # Voids 2 - Exam GENERAL: Well developed and in no acute distress. Pleasant. HEENT: No sclera icterus. Extraocular movements grossly intact. Moist buccal mucosa. Head is atraumatic, normocephalic. Hears conversational speech. No nasal drainage. CHEST: Non-labored respirations and equal bilateral excursions. CARDIOVASCULAR: Regular rate and rhythm. Palpable 2+ radial pulses. ABDOMEN: Soft, nontender. Nondistended. Dressing clean dry and intact. No signs of infection or cellulitis. MUSCULOSKELETAL: No clubbing, cyanosis or edema. NEUROLOGIC: No focal or lateralizing signs. PSYCH: Appropriate affect. Alert and oriented to person, place and time. SKIN: Good skin turgor. Will perfused. - Labs CBC & Chem 7: 05/12/17 06:27 05/12/17 06:27 Labs: Abnormal Lab Results - Last 24 Hours (Table) 05/12/17 Range/Units 06:27 Neutrophils # 7.9 H (1.3-7.7) k/uL Assessment and Plan (1) Morbid obesity due to excess calories Status: Acute (2) BMI 37.0-37.9, adult Status: Acute (3) Sleep apnea Status: Acute (4) Hypertensive heart disease Status: Acute (5) Chronic pain Status: Acute (6) Fibromyalgia Status: Acute (7) Gastroesophageal reflux Status: Acute (8) Postoperative nausea and vomiting Status: Acute (9) Hypomagnesemia Status: Acute Plan: 1. Recommend starting Flomax. 2. She takes gabapentin for coughing. I have discussed discontinuing her medication. 3. Medication reconciliation was performed. 4. She has hypomagnesia and recommend replacement. 5. Continue bariatric clears.
--- NOTE | 2017-05-12 21:24 | P.PN ---
Progress Note - Text Patient seen and reevaluated. Her nausea is resolved after magnesium replacement. However, she has urinary retention. Recommend Flomax. Re-evaluate for discharge in the morning.
[2017-05-12] MEDS: diphenhydrAMINE 50 MG/ML 1 ML VIAL IVP PRN (21:42)
[2017-05-13] MEDS: diphenhydrAMINE 50 MG/ML 1 ML VIAL IVP PRN ×2 (02:43→10:16)
[2017-05-13] MEDS: fentaNYL PCA 300 MCG/30 ML SYRINGE IV PRN (04:03)
[2017-05-13] MEDS ORDERED: SODIUM CHLORIDE 0.9% 1,000 ML BAG ONE (06:23)
[2017-05-13] MEDS: 1: MVI, ADULT NO.4 WITH VIT K 10 ML, THIAMINE 100 MG, FOLIC ACID 1 MG, POTASSIUM CHLORID IV SCH ×6 (06:23)
[2017-05-13] MEDS: SIMETHICONE 40 MG/0.6 ML DROPS 2,000 MG/30 ML BOTTLE PO SCH (06:27)
[2017-05-13] MEDS: HYOSCYAMINE ORAL DROPS 1.875 MG/15 ML BOTTLE PO SCH (06:27)
[2017-05-13 07:10] VITALS: BP 148/82; PULSE 94; RESP 16; TEMP 98.3
[2017-05-13] MEDS: PANTOPRAZOLE 40 MG/10 ML VIAL IV SCH (07:49)
[2017-05-13] MEDS: ESCITALOPRAM 10 MG TAB PO SCH (07:49)
[2017-05-13] MEDS: ENOXAPARIN 40 MG/0.4 ML SYRINGE SQ SCH (07:49)
[2017-05-13] MEDS: METOPROLOL TARTRATE 12.5 MG TAB PO SCH (07:50)
[2017-05-13] MEDS: ALBUTEROL NEBULIZED 2.5 MG/3 ML INHALATION SCH ×2 (08:42→11:27)
--- NOTE | 2017-05-13 11:08 | P.PN ---
Subjective Principal diagnosis: Morbid obesity The patient is status post gastric bypass, postop day 2. She had itching overnight as result of start her Dilaudid. She is urinating on her own. No reports of abdominal pain. She is ambulating. No nausea or vomiting. Objective - Vital Signs Vital signs: Vital Signs Temp 98.3 F 05/13/17 07:09 Pulse 94 05/13/17 07:09 Resp 16 05/13/17 07:09 BP 148/82 05/13/17 07:09 Pulse Ox 94 L 05/13/17 07:09 Intake & Output 05/12/17 05/13/17 05/13/17 18:59 06:59 18:59 Intake Total 1400 2371.2 Output Total 400 950 Balance 1000 1421.2 Intake: IV 800 0.9% NaCl with KCl 20 Meq 800 /l 1,000 ml @ 100 mls/hr IV .BY DURATION EARNESTINE Rx#: [id number] Intake, IV Titration 1400 1021.2 Amount 0.9% NaCl with KCl 20 Meq 300 /l 1,000 ml @ 150 mls/hr IV .Q6H40M EARNESTINE Rx#: [id number] Ampicillin-Sulbactam 3 gm 100 In Sodium Chloride 0.9% 100 ml @ 100 mls/hr IVPB Q6H EARNESTINE Rx#:[id number] Magnesium Sulfate-D5w Pmx 400 1 gm In Dextrose/Water 1 100ml.bag @ 100 mls/hr IVPB Q1H EARNESTINE Rx#: [id number] Mvi, Adult No.4 with Vit 600 1021.2 K 10 ml Thiamine 100 mg Folic Acid 1 mg Potassium Chloride 20 meq In Sodium Chloride 0.9% 1, 000 ml @ 100 mls/hr IV . BY DURATION EARNESTINE Rx#: [id number] Oral 550 Output: Urine 400 950 Straight 400 Other: Voiding Method Toilet Toilet # Voids 4 - Exam GENERAL: Well developed and in no acute distress. Pleasant. HEENT: No sclera icterus. Extraocular movements grossly intact. Moist buccal mucosa. Head is atraumatic, normocephalic. Hears conversational speech. No nasal drainage. CHEST: Non-labored respirations and equal bilateral excursions. CARDIOVASCULAR: Regular rate and rhythm. Palpable 2+ radial pulses. ABDOMEN: Soft, nontender. Nondistended. Dressing clean dry and intact. No signs of infection or cellulitis. MUSCULOSKELETAL: No clubbing, cyanosis or edema. NEUROLOGIC: No focal or lateralizing signs. PSYCH: Appropriate affect. Alert and oriented to person, place and time. - Labs CBC & Chem 7: 05/12/17 06:27 05/12/17 06:27 Assessment and Plan (1) Morbid obesity due to excess calories Status: Acute (2) BMI 37.0-37.9, adult Status: Acute (3) Sleep apnea Status: Acute (4) Hypertensive heart disease Status: Acute (5) Chronic pain Status: Acute (6) Fibromyalgia Status: Acute (7) Gastroesophageal reflux Status: Acute (8) Postoperative nausea and vomiting Status: Acute (9) Hypomagnesemia Status: Acute Plan: 1. Continue Flomax for discharge. 2. Narcotic use was discussed reviewed in detail. Alternative for pain medications including Avalon for an additional 5 day dose post procedure. 3. For her itching, Benadryl. 4. Repeat of CBC including BMP and magnesium levels. 5. Discharge home later today with follow-up in the bariatric Center in 5 days.
[2017-05-13 11:09] LABS: Basophils % (A) 0 %; CH 28.4; CHCM 33.2; Eosinophils # (A) 0.1 k/uL (0-0.7); Eosinophils % (A) 1 %; HCT 38.9 % (34.0-46.0); HGB 12.8 gm/dL (11.4-16.0); Luc # (Auto) 0.13; Luc % (Auto) 2; Lymphocytes # (A) 1.6 k/uL (1.0-4.8); Lymphocytes % (A) 18 %; MCH 28.3 pg (25.0-35.0); MCHC 32.9 g/dL (31.0-37.0); MCV 85.9 fL (80.0-100.0); Mean Platelet Volume 8.7; Monocytes # (A) 0.4 k/uL (0-1.0); Monocytes % (A) 5 %; Neutrophils # (A) 6.9 k/uL (1.3-7.7); Neutrophils % (A) 75 %; RBC 4.53 m/uL (3.80-5.40); RDW 13.8 % (11.5-15.5); WBC 9.2 k/uL (3.8-10.6); WBC (Perox) 8.83
[2017-05-13 11:18] LABS: Anion Gap 6 mmol/L; Blood Urea Nitrogen 7 mg/dL (7-17); Calcium 9.1 mg/dL (8.4-10.2); Carbon Dioxide 27 mmol/L (22-30); Chloride 105 mmol/L (98-107); Glucose 84 mg/dL (74-99); Magnesium 1.9 mg/dL (1.6-2.3); Non-African American GFR(MDRD) >60 (>60 ml/min/1.73 sqM); Potassium 4.6 mmol/L (3.5-5.1); Sodium 138 mmol/L (137-145)
--- NOTE | 2017-05-13 11:31 | P.DS ---
Providers Date of admission: 05/11/17 11:12 Expected date of discharge: 05/13/17 Attending physician: Jeni Lentz Primary care physician: Stated None - Discharge Diagnosis(es) (1) Morbid obesity due to excess calories Current Visit: Yes Status: Acute (2) BMI 37.0-37.9, adult Current Visit: Yes Status: Acute (3) Sleep apnea Current Visit: Yes Status: Acute (4) Hypertensive heart disease Current Visit: Yes Status: Acute (5) Chronic pain Current Visit: Yes Status: Acute (6) Fibromyalgia Current Visit: Yes Status: Acute (7) Gastroesophageal reflux Current Visit: Yes Status: Acute (8) Postoperative nausea and vomiting Current Visit: No Status: Chronic (9) Hypomagnesemia Current Visit: Yes Status: Acute Hospital Course: The patient is a 51-year-old female who underwent the bariatric program assessment plan. She elected for a Juan Manuel-en-Y gastric bypass. She has comorbidities including sleep apnea, hypertension, depression, esophageal reflux , chronic cough and chronic pain syndrome. She has a personal history of DVT in the past. Risk assessment was performed and found to be 0.73% predicted value for thrombotic event per [place] bariatric surgery collaborative calculator. She underwent a gastric bypass. Postprocedure she was treated with Flomax for urinary retention which had resolved prior to discharge. She has history of chronic pain and her narcotic use and options were reviewed in detail. Patient was cleared for discharge. Nausea had resolved. Pertinent Studies: None. Procedures: Laparoscopic Juan Manuel-en-Y gastric bypass, 100 cm Juan Manuel limb, antegastric antecolic with 25 mm Orvil Laparoscopic lysis of adhesions Intraoperative esophagogastroduodenoscopy Patient Condition at Discharge: Good Plan - Discharge Summary New Discharge Prescriptions: New HYDROcodone/APAP 7.5-325MG [[place] 7.5-325] 1 each PO Q4H PRN #20 tab PRN Reason: Pain Tamsulosin [Flomax] 0.4 mg PO DAILY #7 cap Discontinued Multivitamins, Thera [Multivitamin] 1 tab PO DAILY Gabapentin [Neurontin] 1,600 mg PO BID Biotin 5 mg PO DAILY Cholecalciferol [Vitamin D3] 1,000 unit PO DAILY Nystatin 100,000 Unit/gm Powd [Mycostatin Powder] 1 applic TOPICAL BID PRN PRN Reason: Skin Irritation No Action ALPRAZolam [Xanax] 0.5 mg PO HS Escitalopram [Lexapro] 30 mg PO QAM Fluticasone Propionate [Flonase Allergy Relief] 2 spray EA NOSTRIL BID PRN PRN Reason: Congestion Omeprazole [PriLOSEC] 40 mg PO QAM CHLORPHEN-HYDROcod 8-10mg/5ml [Tussionex] 5 ml PO Q12HR PRN PRN Reason: Cough Ondansetron HCl [Zofran] 8 mg PO Q8H PRN PRN Reason: Nausea HYDROmorphone HCL [Dilaudid] 4 mg PO BID PRN PRN Reason: Moderate To Severe Pain Melatonin 10 mg PO HS PRN PRN Reason: sleep Metoprolol Tartrate [Lopressor] 12.5 mg PO BID Cyclobenzaprine [Flexeril] 10 mg PO HS Discharge Medication List ALPRAZolam [Xanax] 0.5 mg PO HS 04/30/14 [History] Escitalopram [Lexapro] 30 mg PO QAM 02/23/16 [History] Fluticasone Propionate [Flonase Allergy Relief] 2 spray EA NOSTRIL BID PRN 02/22 [History] Omeprazole [PriLOSEC] 40 mg PO QAM 02/23/16 [History] CHLORPHEN-HYDROcod 8-10mg/5ml [Tussionex] 5 ml PO Q12HR PRN 02/28/16 [History] Ondansetron HCl [Zofran] 8 mg PO Q8H PRN 07/20/16 [History] HYDROmorphone HCL [Dilaudid] 4 mg PO BID PRN 03/21/17 [History] Melatonin 10 mg PO HS PRN 05/01/17 [History] Cyclobenzaprine [Flexeril] 10 mg PO HS 05/11/17 [History] Metoprolol Tartrate [Lopressor] 12.5 mg PO BID 05/11/17 [History] HYDROcodone/APAP 7.5-325MG [[place] 7.5-325] 1 each PO Q4H PRN #20 tab 05/13/17 [ Rx] Tamsulosin [Flomax] 0.4 mg PO DAILY #7 cap 05/13/17 [Rx] Follow up Appointment(s)/Referral(s): Jeni Lentz MD [STAFF PHYSICIAN] - 05/16/17 2:00 pm (Bariatric Center) Patient Instructions/Handouts: Juan Manuel-en-Y Gastric Bypass (DC) Activity/Diet/Wound Care/Special Instructions: No lifting over 4 pounds in 4 weeks. Follow-up at the bariatric center. May sponge bath. Do not shower until cleared by surgeon. Dressings to be discontinued by surgeon in the office. Start protein shakes on Sunday. Discharge Disposition: HOME SELF-CARE
--- NOTE | 2017-05-27 22:27 | P.OP ---
Description of Procedure: Date of Procedure: 05/11/17 SURGEON: BOOGIE LIU MD GRAIN WAFER MACHINE OPERATOR: PONCHO CURIEL PRE-OPERATIVE DIAGNOSES: 1. Morbid obesity due to excess caloric intake. 2. Body mass index reduced from 43.5 down to 37. 3. Osteoarthritis of the bilateral knees, secondary to morbid obesity. 4. Osteoarthritis of the bilateral feet, secondary to morbid obesity. 5. Osteoarthritis of the lower back, secondary to morbid obesity. 6. Obstructive sleep apnea. 7. Pseudotumor cerebri. 8. Anxiety. 9. Depression. 10. Prior personal history of DVT. 11. Chronic cough. 12. Gastroesophageal reflux disease. 13. Vitamin D deficiency. 14. Hypertensive heart disease. 15. Gastritis. 16. Diaphragmatic hiatal hernia. 17. Panniculitis. 18. History of binge eating. 19. Family history of achalasia, esophageal dysmotility. POSTOPERATIVE DIAGNOSES: 1. Morbid obesity due to excess caloric intake. 2. Body mass index reduced from 43.5 down to 37. 3. Osteoarthritis of the bilateral knees, secondary to morbid obesity. 4. Osteoarthritis of the bilateral feet, secondary to morbid obesity. 5. Osteoarthritis of the lower back, secondary to morbid obesity. 6. Obstructive sleep apnea. 7. Pseudotumor cerebri. 8. Anxiety. 9. Depression. 10. Prior personal history of DVT. 11. Chronic cough. 12. Gastroesophageal reflux disease. 13. Vitamin D deficiency. 14. Hypertensive heart disease. 15. Gastritis. 16. Diaphragmatic hiatal hernia. 17. Panniculitis. 18. History of binge eating. 19. Family history of achalasia, esophageal dysmotility. 20. Lower abdominal pelvic adhesions OPERATION: 1. Laparoscopic gastric bypass 100 cm with 25 mm Orvil, antecolic antegastric 2. Laparoscopic lysis of adhesions over 35 minutes. 3. Intraoperative esophagojejunostomy. Anesthesia: GETA, local (10 mls of 0.5% Marcaine with epinephrine) ESTIMATED BLOOD LOSS: 10 mL SPECIMENS SENT: None. COMPLICATIONS: None. INDICATIONS: Ana Lilia Hayes is a 50-year-old female who comes in at 5 feet 4-1 /4 inches. [place] body weight is 144 pounds. She comes in weighing 214 pounds. Her weight was 255 pounds. Body mass index is reduced from 43.5 down to 37. She has history of gastroesophageal reflux. She comes in with persistent problems of panniculitis despite local treatment and skin care. Despite her initial success with weight loss including caloric restriction, she presents with chronic problems with maintaining her weight loss hence her presentation today. Seperately, she developed hypertension including sleep apnea as a result of her obesity.She has elected for a Juan Manuel-en-Y gastric bypass. Benefits and risks of the procedure, including increased risk for leak, surgical complications, nausea , vomiting, gastrointestinal anastomotic stricture, were described at length via a second-generation bariatric consent form. She had given informed consent. DESCRIPTION: The patient was brought into the operating room theater. She was placed on a split leg table. Preoperatively she had received Lovenox subcutaneously for DVT prophylaxis. Additionally she had undergone Peridex oral solution as an oral decontaminant. After general induction, the abdomen was prepped and draped in standard sterile fashion. A Roper catheter was placed. At her height of approximately 5 feet 4.25 inch, her height from her xiphoid to her umbilicus was 18.5 cm. Initial attention was brought along the left upper quadrant, whereby a zero-degree 10 mm trocar laparoscopic trocar entry was performed at the left upper abdomen. The abdominal cavity was entered. A 12-mm port was placed along the left lateral abdominal wall. Next a 12 mm port was placed approximately 15 cm distal and off to the left of midline for placement of the camera port. Additional two 12 mm trocars were placed along the right upper abdomen at the right costal margin including the right midclavicular line in a V-type fashion. Diagnostic laparoscopy demonstrated no injury to the bowel, viscera or mesentery. Moderate abdominal adhesions were identified involving the lower pelvis. Extensive lysis of adhesions using Sonicision including blunt dissection was performed to address the greater omentum to the abdominal wall . Adhesional lysis occurred for at least 35 minutes. The small bowel was unremarkable in appearance. The liver surface was smooth including along the edge was sharp consistent with a 2 week high-protein low caloric diet. No large diaphragmatic hiatal hernia was identified. The ligament of Treitz was identified and measured 60 cm antegrade. The jejunum was divided at this point. The biliopancreatic limb was held in place by the certified anesthesiologist assistant. The blind jejunal limb was marked using a Gianluca drain and 2-0 silk Endo Stitch.. The Juan Manuel limb was then measured 125 cm distally. Her mesentery was short preventing tension of the jejunojejunostomy at 150 cm Juan Manuel limb. At 100 cm along the anterior mesenteric border of the Juan Manuel limb, a jejunojejunostomy was proposed whereby enterotomies were created along the biliopancreatic limb including the Juan Manuel limb. A bidirectional fire was performed whereby from the surgeon's end a 45 mm machuca load was fired. From the certified anesthesiologist assistant's end a separate 45 mm firing had occurred, creating a 90 mm jejunojejunostomy. The defect was then closed using a 60 mm machuca load. The jejunojejunostomy was found to be hemostatic. Attention was now brought to the creation of the gastrojejunostomy. The transverse mesocolon was cleaved using a Sonicision. Placement of a medium-sized Farzana liver retractor was used to elevate the left lobe of the liver for greater visualization of the upper abdomen, particularly the superior pole of the stomach. The Farzana liver retractor was held in place using an iron trestle mainternance laborer. Along the lesser curvature of the stomach between the second and third veins, dissection was made along the retrogastric space to allow first firing of the Covidien Tri-Staple purple load. Once adequately mobilized, an initial firing using a 60 mm purple load was performed perpendicular to the lesser curvature of the stomach. To completely divide the pouch from the remnant stomach, two 60 mm purple loads were fired towards the angle of His followed by a 45 mm purple load. Care was taken to avoid any creation of gastric gastric fistulas. Once the stomach was completely divided, attention was brought to placement of the Orvil. The patient was Mallampati 2. Using the help of the nurse dynamometer tester, a 25 mm Orvil was placed along the posterior oropharynx and advanced into the pouch. The Orvil was placed anterior to the staple line. A gastrotomy was created for removal of the tubing. Once the sutures were encountered these were divided in the tubing and Orvil were disconnected. Using aseptic technique all ports and instruments and gloves were exchanged after handling of the Orvil tubing. Patient was then placed in reverse Trendelenburg. As the Orvil had been placed, the blind jejunal limb was brought proximally into the upper abdomen. No tension or torsion was found upon the Juan Manuel limb, which was brought along the upper abdomen. The blind jejunal limb was opened using a cordless Harmonic scalpel. The 25mm EEA stapler was brought through the anterior lateral port site from the certified anesthesiologist assistant's end. The EEA stapler was brought through the open jejunal limb and its needle was deployed at the antimesenteric border where the anvil were mated for approximately 1 minute upon firing. The stapler was removed. Donuts were found to be intact. The open jejunal limb defect was closed using a 60 mm machuca load. No redundant jejunal limb was allow to decrease risk of candycane syndrome. Closure of the mesenteric defects was performed, initially of the C[place]jo defect using 2-0 silk on an Endo Stitch and a Lapra-Ty. Attention was brought to closure of the jejunojejunostomy mesenteric defect, also closed in a similar fashion. I then went to the head of the bed to perform the esophagogastrojejunoscopy and a leak test. An Olympus gastroscope was passed along the posterior oropharynx. The scope was passed down to the proximal portion of the pouch, whereby no active bleeding was encountered. Excellent visualization of the gastrojejunostomy anastomosis, including the Juan Manuel limb was encountered for which endoscopic image was obtained. The anastomosis was found to be patent. The gastrointestinal tract was desufflated. No evidence of intraoperative leak was encountered. I then went back to the bedside of the patient, whereby with coordinated effort of the certified anesthesiologist assistant, the fluid from the leak test was aspirated from the upper abdominal cavity. Tisseel was placed circumferentially over the anastomosis. All instruments and pneumoperitoneum were evacuated from the abdominal cavity. The port correlating with the EEA stapler device was copiously irrigated with 3 L of warm normal saline solution. The fascial defect was closed using a Valdemar Uy and 0 Vicryl in a [id number] fashion. The incisions were also cleansed with hydrogen peroxide. The rest of incisions were reapproximated using 3-0 Vicryl for deep subcutaneous tissue and dermis followed by 4-0 Monocryl in a running subcuticular fashion. Dermabond was applied to the skin. At the end of the procedure, needle, sponge and instrument count had been verified correct by the assembler surgical garment. She had tolerated the procedure well and was taken to the postanesthesia unit in stable condition. Intraoperative findings were described to the patient's family were pleased to level of care. FINDINGS: 1. 25 mm Orvil for gastrojejunal anastomosis. 2. Negative intraoperative esophagogastrojejunoscopy leak test. 3. Approximately 3 -60 mm purple and 1 - 45 mm purple staplers used for creation of her gastric pouch. 4. Juan Manuel limb of 100 cm, shortened from 150 cm to avoid tension of her jejunojejunostomy. 5. Length of xiphoid to umbilicus of 18.5 cm 6. Generous doughnuts.
== END 2017-05-13 12:16 | disposition home or self-care (01) | DRG 621 ==
LOC: 2ORWHC 11:12 → 3SUR 16:22
PROVIDERS: ADMIT Surgery Plastic and Reconstructive Surgery; ATTEND Surgery Plastic and Reconstructive Surgery
PROC: 0DNW4ZZ Release Peritoneum, Percutaneous Endoscopic Approach (ICD-10-PCS; 2017-05-11)
PROC: 0DJ08ZZ Inspection of Upper Intestinal Tract, Via Natural or Artificial Opening Endoscopic (ICD-10-PCS; 2017-05-11)
PROC: 0D164ZA Bypass Stomach to Jejunum, Percutaneous Endoscopic Approach (ICD-10-PCS; principal; 2017-05-11 12:45)
DX: E66.01 Morbid (severe) obesity due to excess calories (principal); I11.9 Hypertensive heart disease without heart failure; E83.42 Hypomagnesemia; K91.0 Vomiting following gastrointestinal surgery; E55.9 Vitamin D deficiency, unspecified; F32.9 Major depressive disorder, single episode, unspecified; Z68.37 Body mass index [BMI] 37.0-37.9, adult; F41.9 Anxiety disorder, unspecified; G47.33 Obstructive sleep apnea (adult) (pediatric); M17.0 Bilateral primary osteoarthritis of knee; M19.071 Primary osteoarthritis, right ankle and foot; M19.072 Primary osteoarthritis, left ankle and foot; M47.9 Spondylosis, unspecified; G93.2 Benign intracranial hypertension; K44.9 Diaphragmatic hernia without obstruction or gangrene; K21.9 Gastro-esophageal reflux disease without esophagitis; K29.70 Gastritis, unspecified, without bleeding; M79.3 Panniculitis, unspecified; R63.2 Polyphagia; R33.9 Retention of urine, unspecified; M79.7 Fibromyalgia; R05 Cough; G89.4 Chronic pain syndrome; N73.6 Female pelvic peritoneal adhesions (postinfective); R51 Headache; Z79.899 Other long term (current) drug therapy; Z86.718 Personal history of other venous thrombosis and embolism; Z88.5 Allergy status to narcotic agent; Z88.8 Allergy status to other drugs, medicaments and biological substances; Z91.012 Allergy to eggs; Y83.2 Surgical operation with anastomosis, bypass or graft as the cause of abnormal reaction of the patient, or of later complication, without mention of misadventure at the time of the procedure
CPT/HCPCS: 36415; 80048; 80051; 81025; 82310; 82565; 83735; 84100; 84520; 85025; 86850; 86900; 86901; 94640; 94760

== ENCOUNTER → 2017-05-16 | Outpatient (CLI) | payer BC ==
[2017-05-16 16:00] VITALS: BMI 37.7
[2017-05-17 09:58] VITALS: BP 144/86; PULSE 83; TEMP 97.3
--- NOTE | 2017-06-09 17:50 | P.PN ---
Progress Note - Text DATE OF SERVICE: 05/16/2017. CHIEF COMPLAINT: Bariatric assessment. HISTORY OF PRESENT ILLNESS: Ana Lilia Hayes is a 50-year-old female who is status post gastric bypass on 05/11/2017. At her height of 5 feet 4-1/4 inches, her ideal body weight is 144 pounds. She comes in weighing 221 pounds. Her highest weight was 255 pounds. She has lost 6 pounds in 2 months. Her body mass index is reduced from 43.5 down to 37.7. Her lifetime weight loss is 34 pounds. Percent excess weight loss of 34%. She reports feeling great. She denies dysphagia. No reports of esophageal reflux disease. No reports of infection, fevers, or abdominal pain. She does report constipation. She had already started eating chili and tacos prematurely and had gotten heartburn. PHYSICAL EXAM: VITAL SIGNS: 5 feet 4.25 nches frame. Weight 221 pounds. Her body mass index 37.7 Vital Signs Temp 97.3 F L 05/16/17 15:00 Pulse 83 05/16/17 15:00 Resp BP 144/86 05/16/17 15:00 Pulse Ox ABDOMEN: Soft, nontender, nondistended. GENERAL: Well-developed female in no acute distress. HEENT: No sclerae icterus. Extraocular movements grossly intact. Moist buccal mucosa. NECK: Supple without lymphadenopathy. CHEST: Nonlabored respirations. Equal bilateral excursions. CARDIOVASCULAR: Regular rate and rhythm. MUSCULOSKELETAL: No clubbing, cyanosis, or edema. NEURO: No focal or lateralizing signs. Cranial nerves II through XII grossly within normal limits. PSYCH: Appropriate affect. Alert and oriented to person, place and time. ASSESSMENT: 1. Morbid obesity due to excess caloric intake. 2. Body mass index reduced from 43.5 down to 37.7 3. Osteoarthritis of the bilateral knees, secondary to morbid obesity. 4. Osteoarthritis of the bilateral feet, secondary to morbid obesity. 5. Osteoarthritis of the lower back, secondary to morbid obesity. 6. Obstructive sleep apnea. 7. Pseudotumor cerebri. 8. Anxiety. 9. Depression. 10. Gastroesophageal reflux disease, resolved. 11. Vitamin D deficiency. 12. Hypertensive heart disease. 13. Status post gastric bypass. PLAN: 1. She was reinforced of liquid diet only in the early onset of her operation. 2. Milk of magnesia for constipation. 3. Fluid intake of 64 ounces daily. 4. Protein shakes of 75 g daily. 5. Follow-up in 2 weeks.
== END ==
LOC: BARWHC3 14:06
PROVIDERS: ATTEND Surgery Plastic and Reconstructive Surgery
DX: E66.01 Morbid (severe) obesity due to excess calories (principal); Z98.84 Bariatric surgery status; Z68.37 Body mass index [BMI] 37.0-37.9, adult; M17.0 Bilateral primary osteoarthritis of knee; G47.33 Obstructive sleep apnea (adult) (pediatric); F41.9 Anxiety disorder, unspecified; F32.9 Major depressive disorder, single episode, unspecified; K59.00 Constipation, unspecified; I11.9 Hypertensive heart disease without heart failure
CPT/HCPCS: 97803; 99211

== ENCOUNTER → 2017-05-30 | Outpatient (CLI) | payer BC ==
[2017-05-30 16:07] VITALS: BP 140/89; PULSE 79; RESP 16; TEMP 98; BMI 35.4
[2017-05-30 17:51] LABS: CH 26.9; CHCM 31.9; HCT 43.1 % (34.0-46.0); HDW 2.89; HGB 14.2 gm/dL (11.4-16.0); Hypochromasia Slight; MCH 28.1 pg (25.0-35.0); MCHC 33.1 g/dL (31.0-37.0); Mean Platelet Volume 8.3; RBC 5.07 m/uL (3.80-5.40); RDW 13.5 % (11.5-15.5); WBC 8.1 k/uL (3.8-10.6)
[2017-05-30 17:56] LABS: INR 1.1 (<1.2); Partial Thromboplastin Time 24.2 sec (22.0-30.0); Prothrombin Time 11.2 sec (9.0-12.0)
[2017-05-30 18:06] LABS: ALT 40 U/L (9-52); AST 21 U/L (14-36); Alkaline Phosphatase 77 U/L (38-126); Anion Gap 12 mmol/L; Blood Urea Nitrogen 18 mg/dL (7-17); Calcium 9.7 mg/dL (8.4-10.2); Carbon Dioxide 24 mmol/L (22-30); Chloride 105 mmol/L (98-107); Cholesterol 136 mg/dL (<200); Glucose 89 mg/dL (74-99); HDL Cholesterol 54 mg/dL (40-60); Magnesium 1.7 mg/dL (1.6-2.3); Non-African American GFR(MDRD) >60 (>60 ml/min/1.73 sqM); Phosphorus 3.8 mg/dL (2.5-4.5); Potassium 4.3 mmol/L (3.5-5.1); Sodium 141 mmol/L (137-145); Total Bilirubin 0.2 mg/dL (0.2-1.3); Total Protein 6.1 g/dL (6.3-8.2)
[2017-05-30 18:55] LABS: Vitamin B12 902 pg/mL (239-931)
[2017-05-30 19:49] LABS: Hemoglobin A1C 5.4 % (4.2-6.1)
[2017-05-31 00:54] LABS: Iron Saturation 13.28 (12.00-45.00)
[2017-06-06 19:18] LABS: Selenium 118 mcg/L (63-160)
--- NOTE | 2017-06-10 18:32 | P.PN ---
Subjective DATE OF SERVICE: 05/30/2017. CHIEF COMPLAINT: Follow up gastric bypass. HISTORY OF PRESENT ILLNESS: Ana Lilia Hayes is a 50-year-old female who is status post gastric bypass on 05/11/2017. At her height of 5 feet 4-1/4 inches, her ideal body weight is 144 pounds. She comes in weighing 208 pounds. Her highest weight was 255 pounds. She lost 4 pounds in 2 weeks. Her body mass index is reduced from 43.5 down to 35.5. Her lifetime weight loss is 47 pounds. Percent excess weight loss of 42%. She reports feeling great. She denies dysphagia. No reports of esophageal reflux disease. No reports of infection, fevers, or abdominal pain. She does report constipation. She had already started eating chili and tacos prematurely and had gotten heartburn. PHYSICAL EXAM: VITAL SIGNS: 5 feet 4.25 inches frame. Weight 208 pounds. Her body mass index 35.5 Vital Signs Temp 98.0 F 05/30/17 16:05 Pulse 79 05/30/17 16:05 Resp 16 05/30/17 16:05 BP 140/89 05/30/17 16:05 Pulse Ox ABDOMEN: Soft, nontender, nondistended. GENERAL: Well-developed female in no acute distress. HEENT: No sclerae icterus. Extraocular movements grossly intact. Moist buccal mucosa. NECK: Supple without lymphadenopathy. CHEST: Nonlabored respirations. Equal bilateral excursions. CARDIOVASCULAR: Regular rate and rhythm. MUSCULOSKELETAL: No clubbing, cyanosis, or edema. NEURO: No focal or lateralizing signs. Cranial nerves II through XII grossly within normal limits. PSYCH: Appropriate affect. Alert and oriented to person, place and time. ASSESSMENT: 1. Morbid obesity due to excess caloric intake. 2. Body mass index reduced from 43.5 down to 35.5 3. Osteoarthritis of the bilateral knees, secondary to morbid obesity. 4. Osteoarthritis of the bilateral feet, secondary to morbid obesity. 5. Osteoarthritis of the lower back, secondary to morbid obesity. 6. Obstructive sleep apnea. 7. Pseudotumor cerebri. 8. Anxiety. 9. Depression. 10. Gastroesophageal reflux disease, resolved. 11. Vitamin D deficiency. 12. Hypertensive heart disease. 13. Status post gastric bypass. PLAN: 1. She is doing much better today. 2. She is tolerating diet. 3. She reports eating solid foods which is premature. I recommended pured food in the interim. 4. Bariatric labs at this time. LABS: Vitamin A is low. Total protein is low. Prealbumin is low. Recommend protein intake of 75 g daily. Laboratory Last Values WBC 8.1 k/uL (3.8-10.6) 05/30/17 17: RBC 5.07 m/uL (3.80-5.40) 05/30/17 17:28 Hgb 14.2 gm/dL (11.4-16.0) 05/30/17 17:28 Hct 43.1 % (34.0-46.0) 05/30/17: MCV 85.0 fL (80.0-100.0) 05/30/17 17: MCH 28.1 pg (25.0-35.0) 05/30/17 17: MCHC 33.1 g/dL (31.0-37.0) 05/30/17 17: RDW 13.5 % (11.5-15.5) 05/30/17 17:28 Plt Count 292 k/uL (150-450) 05/30/17 17:28 Hypochromasia Slight 05/30/17 17:28 PT 11.2 sec (9.0-12.0) 05/30/17 17:28 INR 1.1 (<1.2) 05/30/17 17:28 APTT 24.2 sec (22.0-30.0) 05/30/17 17:28 Sodium 141 mmol/L (137-145) 05/30/17 17:28 Potassium 4.3 mmol/L (3.5-5.1) 05/30/17 17:28 Chloride 105 mmol/L (98-107) 05/30/17 17:28 Carbon Dioxide 24 mmol/L (22-30) 05/30/17 17:28 Anion Gap 12 mmol/L 05/30/17 17:28 BUN 18 mg/dL (7-17) H 05/30/17 17:28 Creatinine 0.60 mg/dL (0.52-1.04) 05/30/17 17:28 Est GFR (MDRD) Af Amer >60 (>60 ml/min/1.73 sqM) 05/30/17 17:28 Est GFR (MDRD) Non-Af >60 (>60 ml/min/1.73 sqM) 05/30/17 17:28 Glucose 89 mg/dL (74-99) 05/30/17 17:[address] Glu mg/dL 108 mg/dL 05/30/17 17:28 Hemoglobin A1c 5.4 % (4.2-6.1) 05/30/17 17:28 Calcium 9.7 mg/dL (8.4-10.2) 05/30/17 17: Phosphorus 3.8 mg/dL (2.5-4.5) 05/30/17 17: Magnesium 1.7 mg/dL (1.6-2.3) 05/30/17 17:28 Iron 34 ug/dL (50-170) L 05/30/17 17: TIBC 256 ug/dL (228-460) 05/30/17 17: Iron Saturation 13.28 (12.00-45.00) 05/30/17 17: Ferritin 82.0 ng/mL (10.0-291.0) 05/30/17 17:28 Total Bilirubin 0.2 mg/dL (0.2-1.3) 05/30/17 17:28 AST 21 U/L (14-36) 05/30/17 17:28 ALT 40 U/L (9-52) 05/30/17 17:28 Alkaline Phosphatase 77 U/L (38-126) 05/30/17 17:28 Total Protein 6.1 g/dL (6.3-8.2) L 05/30/17 17:28 Albumin 3.9 g/dL (3.5-5.0) 05/30/17 17:28 Prealbumin 11.0 mg/dL (18.0-42.0) L 05/30/17 17:28 Triglycerides 85 mg/dL (<150) 05/30/17 17:28 Cholesterol 136 mg/dL (<200) 05/30/17 17:28 LDL Cholesterol, Calc 65 mg/dL (0-99) 05/30/17 17:28 HDL Cholesterol 54 mg/dL (40-60) 05/30/17 17:28 Vitamin A 25 ug/dL (38-106) L 05/30/17 17:28 Vitamin B1 57 ug/L (38-122) 05/30/17 17:28 Vitamin B12 902 pg/mL (239-931) 05/30/17 17:28 Vitamin D 25-Hydroxy 42.2 ng/mL (30.0-100.0) 05/30/17 17:28 Folate 16.2 ng/mL 05/30/17 17:28 TSH 0.849 mIU/L (0.465-4.680) 05/30/17 17:28 PTH Intact 40.5 pg/mL (14.0-72.0) 05/30/17 17:28 Copper 1539 ug/L (810-1990) 05/30/17 17:28 Selenium 118 mcg/L (63-160) 05/30/17 17:28 Zinc 94 ug/dL (60-130) 05/30/17 17:28 Objective - Labs CBC & Chem 7: 05/30/17 17:28 05/30/17 17:28
== END | disposition home or self-care (01) ==
LOC: BARWHC3 15:36
PROVIDERS: ATTEND Surgery Plastic and Reconstructive Surgery
DX: Z09 Encounter for follow-up examination after completed treatment for conditions other than malignant neoplasm (principal); E66.01 Morbid (severe) obesity due to excess calories; Z68.35 Body mass index [BMI] 35.0-35.9, adult; M17.0 Bilateral primary osteoarthritis of knee; M19.071 Primary osteoarthritis, right ankle and foot; M19.072 Primary osteoarthritis, left ankle and foot; M47.816 Spondylosis without myelopathy or radiculopathy, lumbar region; G47.33 Obstructive sleep apnea (adult) (pediatric); G93.2 Benign intracranial hypertension; E55.9 Vitamin D deficiency, unspecified; I11.9 Hypertensive heart disease without heart failure; F41.9 Anxiety disorder, unspecified; F32.9 Major depressive disorder, single episode, unspecified; E21.1 Secondary hyperparathyroidism, not elsewhere classified; E89.1 Postprocedural hypoinsulinemia; D50.9 Iron deficiency anemia, unspecified; K76.9 Liver disease, unspecified; N19 Unspecified kidney failure; K50.90 Crohn's disease, unspecified, without complications; K90.9 Intestinal malabsorption, unspecified; Z98.84 Bariatric surgery status
CPT/HCPCS: 36415; 80053; 80061; 82306; 82525; 82607; 82728; 82746; 83036; 83540; 83550; 83735; 83970; 84100; 84134; 84255; 84425; 84443; 84590; 84630; 85027; 85610; 85730; 97802; 99211

== ENCOUNTER → 2017-08-01 | Outpatient (CLI) | payer BC ==
[2017-08-01 13:22] VITALS: BP 168/81; PULSE 80; TEMP 98; BMI 30.6
[2017-08-01 15:12] LABS: INR 1.1 (<1.2); Prothrombin Time 10.7 sec (9.0-12.0)
[2017-08-01 15:17] LABS: HCT 47.9 % (34.0-46.0); HGB 15.1 gm/dL (11.4-16.0); MCH 27.5 pg (25.0-35.0); MCHC 31.6 g/dL (31.0-37.0); Mean Platelet Volume 7.9; Platelet Count 261 k/uL (150-450); RDW 13.5 % (11.5-15.5); WBC 8.2 k/uL (3.8-10.6)
[2017-08-01 15:53] LABS: ALT 43 U/L (9-52); AST 21 U/L (14-36); Albumin 4.3 g/dL (3.5-5.0); Alkaline Phosphatase 81 U/L (38-126); Anion Gap 8 mmol/L; Blood Urea Nitrogen 21 mg/dL (7-17); Calcium 10.4 mg/dL (8.4-10.2); Carbon Dioxide 29 mmol/L (22-30); Chloride 103 mmol/L (98-107); Cholesterol 152 mg/dL (<200); Glucose 108 mg/dL (74-99); HDL Cholesterol 53 mg/dL (40-60); LDL Cholesterol,Calculated 80 mg/dL (0-99); Magnesium 2.2 mg/dL (1.6-2.3); Phosphorous 4.8 mg/dL (2.5-4.5); Potassium 4.6 mmol/L (3.5-5.1); Sodium 140 mmol/L (137-145); Total Bilirubin 0.4 mg/dL (0.2-1.3); Total Protein 6.7 g/dL (6.3-8.2); Triglycerides 93 mg/dL (<150)
[2017-08-01 20:21] LABS: Hemoglobin A1C 5.2 % (4.0-6.0)
[2017-08-02 01:44] LABS: Folate, Serum >24.0 ng/mL; Iron Saturation 32.52 (12.00-45.00)
[2017-08-02 01:47] LABS: Parathyroid Hormone Intact 63.2 pg/mL (14.0-72.0)
[2017-08-03 15:46] LABS: Zinc, Serum 68 ug/dL (60-130)
[2017-08-06 05:02] LABS: Vitamin B1 63 ug/L (38-122)
[2017-08-06 08:46] LABS: Vitamin A 49 ug/dL (38-106)
[2017-08-07 18:31] LABS: Selenium 105 mcg/L (63-160)
--- NOTE | 2017-09-23 18:53 | P.PN ---
Subjective Progress Note Date: 08/01/17 DATE OF SERVICE: 08/01/2017. CHIEF COMPLAINT: Follow up gastric bypass. HISTORY OF PRESENT ILLNESS: nAa Lilia Hayes is a 50-year-old female who is status post gastric bypass on 05/11/2017. At her height of 5 feet 4-1/4 inches, her ideal body weight is 144 pounds. She comes in weighing 180 pounds. Her highest weight was 255 pounds. She lost 28 pounds in 2 months. Her body mass index is reduced from 43.5 down to 30.6. Her lifetime weight loss is 75 pounds. Percent excess weight loss of 68%. She reports sad news that her has . She reports some troubles with chicken. Additionally, she has concerns of potential emotional eating. PHYSICAL EXAM: VITAL SIGNS: 5 feet 4.25 inches frame. Weight 180 pounds. Her body mass index 30.6 Vital Signs Temp 98.0 F 08/01/17 13:19 Pulse 80 08/01/17 13:19 Resp BP 168/81 08/01/17 13:19 Pulse Ox ABDOMEN: Soft, nontender, nondistended. GENERAL: Well-developed female in no acute distress. HEENT: No sclerae icterus. Extraocular movements grossly intact. Moist buccal mucosa. NECK: Supple without lymphadenopathy. CHEST: Nonlabored respirations. Equal bilateral excursions. CARDIOVASCULAR: Regular rate and rhythm. MUSCULOSKELETAL: No clubbing, cyanosis, or edema. NEURO: No focal or lateralizing signs. Cranial nerves II through XII grossly within normal limits. PSYCH: Appropriate affect. Alert and oriented to person, place and time. LABS: Vitamin A is low. Total protein is low. Prealbumin is low. Recommend protein intake of 75 g daily. ASSESSMENT: 1. Morbid obesity due to excess caloric intake. 2. Body mass index reduced from 43.5 down to 30.6. 3. Status post gastric bypass. 4. Vitamin A deficiency. PLAN: 1. She has a very challenging social situation of the loss of her spouse. This does put her at risk for emotional eating. 2. Recommend patient metabolic panel. 3. Follow-up in 1 month. Laboratory Last Values WBC 8.2 k/uL (3.8-10.6) 08/01/17 14:30 RBC 5.50 m/uL (3.80-5.40) H 11/22/17 14:30 Hgb 15.1 gm/dL (11.4-16.0) 08/01/17 14:30 Hct 47.9 % (34.0-46.0) H 08/01/17 14:30 MCV 87.0 fL (80.0-100.0) 08/01/17 14:30 MCH 27.5 pg (25.0-35.0) 08/01/17 14:30 MCHC 31.6 g/dL (31.0-37.0) 08/01/17 14:30 RDW 13.5 % (11.5-15.5) 08/01/17 14:30 Plt Count 261 k/uL (150-450) 08/01/17 14:30 PT 10.7 sec (9.0-12.0) 08/01/17 14:30 INR 1.1 (<1.2) 08/01/17 14:30 APTT 24.0 sec (22.0-30.0) 08/01/17 14:30 Sodium 140 mmol/L (137-145) 08/01/17 14:30 Potassium 4.6 mmol/L (3.5-5.1) 08/01/17 14:30 Chloride 103 mmol/L (98-107) 08/01/17 14:30 Carbon Dioxide 29 mmol/L (22-30) 08/01/17 14:30 Anion Gap 8 mmol/L 08/01/17 14:30 BUN 21 mg/dL (7-17) H 08/01/17 14:30 Creatinine 0.80 mg/dL (0.52-1.04) 08/01/17 14:30 Est GFR (MDRD) Af Amer >60 (>60 ml/min/1.73 sqM) 08/01/17 14:30 Est GFR (MDRD) Non-Af >60 (>60 ml/min/1.73 sqM) 08/01/17 14:30 Glucose 108 mg/dL (74-99) H 08/01/17 14:[address] Glu mg/dL 103 08/01/17 14:30 Hemoglobin A1c 5.2 % (4.0-6.0) 08/01/17 14:30 Calcium 10.4 mg/dL (8.4-10.2) H 08/01/17 14:30 Phosphorus 4.8 mg/dL (2.5-4.5) H 08/01/17 14:30 Magnesium 2.2 mg/dL (1.6-2.3) 08/01/17 14:30 Iron 106 ug/dL (50-170) 08/01/17 14:30 TIBC 326 ug/dL (228-460) 08/01/17 14:30 Iron Saturation 32.52 (12.00-45.00) 08/01/17 14:30 Ferritin 71.9 ng/mL (10.0-291.0) 08/01/17 14:30 Total Bilirubin 0.4 mg/dL (0.2-1.3) 08/01/17 14:30 AST 21 U/L (14-36) 08/01/17 14:30 ALT 43 U/L (9-52) 08/01/17 14:30 Alkaline Phosphatase 81 U/L (38-126) 08/01/17 14:30 Total Protein 6.7 g/dL (6.3-8.2) 08/01/17 14:30 Albumin 4.3 g/dL (3.5-5.0) 08/01/17 14:30 Prealbumin 24.0 mg/dL (18.0-42.0) 08/01/17 14:30 Triglycerides 93 mg/dL (<150) 08/01/17 14:30 Cholesterol 152 mg/dL (<200) 08/01/17 14:30 LDL Cholesterol, Calc 80 mg/dL (0-99) 08/01/17 14:30 HDL Cholesterol 53 mg/dL (40-60) 08/01/17 14:30 Vitamin A 49 ug/dL (38-106) 08/01/17 14:30 Vitamin B1 63 ug/L (38-122) 08/01/17 14:30 Vitamin B12 1235.0 pg/mL (200.0-944.0) H 08/01/17 14:30 Vitamin D 25-Hydroxy 45.0 ng/mL (30.0-100.0) 08/01/17 14:30 Folate >24.0 ng/mL 08/01/17 14:30 TSH 0.046 mIU/L (0.465-4.680) L 08/01/17 14:30 PTH Intact 63.2 pg/mL (14.0-72.0) 08/01/17 14:30 Copper 1120 ug/L (810-1990) 08/01/17 14:30 Selenium 105 mcg/L (63-160) 08/01/17 14:30 Zinc 68 ug/dL (60-130) 08/01/17 14:30 Elevated calcium Suppressed TSH level, hyperthyroidism. Objective - Vital Signs Vital signs: Vital Signs Temp 98.0 F 08/01/17 13:19 Pulse 80 08/01/17 13:19 Resp BP 168/81 08/01/17 13:19 Pulse Ox Intake & Output 07/31/17 08/01/17 08/01/17 18:59 06:59 18:59 Weight 81.601 kg - Labs CBC & Chem 7: 08/01/17 14:30 08/01/17 14:30
== END | disposition home or self-care (01) ==
LOC: BARWHC3 12:43
PROVIDERS: ATTEND Surgery Plastic and Reconstructive Surgery
DX: Z09 Encounter for follow-up examination after completed treatment for conditions other than malignant neoplasm (principal); E66.01 Morbid (severe) obesity due to excess calories; E50.9 Vitamin A deficiency, unspecified; E21.1 Secondary hyperparathyroidism, not elsewhere classified; E89.1 Postprocedural hypoinsulinemia; D50.8 Other iron deficiency anemias; K90.89 Other intestinal malabsorption; E55.9 Vitamin D deficiency, unspecified; K76.9 Liver disease, unspecified; N19 Unspecified kidney failure; K50.90 Crohn's disease, unspecified, without complications; Z68.30 Body mass index [BMI] 30.0-30.9, adult; Z98.84 Bariatric surgery status
CPT/HCPCS: 36415; 80053; 80061; 82306; 82525; 82607; 82728; 82746; 83036; 83540; 83550; 83735; 83970; 84100; 84134; 84255; 84425; 84443; 84590; 84630; 85027; 85610; 85730; 97803; 99211

== ENCOUNTER → 2017-08-29 | Outpatient (CLI) | payer BC ==
[2017-08-29 15:19] VITALS: BP 141/85; PULSE 65; RESP 16; TEMP 98.6; BMI 29.9
--- NOTE | 2017-10-09 22:31 | P.PN ---
Subjective Progress Note Date: 08/29/17 DATE OF SERVICE: 08/29/2017. CHIEF COMPLAINT: Follow gastric bypass. HISTORY OF PRESENT ILLNESS: Ana Lilia Hayes is a 52-year-old female who is status post gastric bypass 05/11/2017. At her height of 5 feet 4-1/4 inches, her ideal body weight is 144 pounds. Her highest weight was 255 pounds. Body mass index was 43.5. Today she comes in with 176 pounds. She has a total of 79 pounds lifetime. Body mass index down 30.0. Percent excess weight loss is 72%. She is 3 months postop. She reports complete resolution of her esophageal reflux. Recently she was hospitalized about 3 weeks ago for chest pain. She reports anxiety especially given the recent of her . She reports intermittent hypertension including palpitations. She has been taking Neurontin including Lexapro. Now she presents for further evaluation and management. She also reports intermittent overeating secondary to emotional distress with the loss of her . PAST SURGICAL HISTORY: 1. Obstructive sleep apnea. 2. Morbid obesity. 3. Chronic headaches. 4. Osteoarthritis of bilateral knees. 5. Osteoarthritis of the lower back. 6. Gastroesophageal reflux disease. 7. Prior history of DVT. 8. Anxiety. 9. Depression. 10. Lipomas along the lower thighs. PAST SURGICAL HISTORY: 1. Appendectomy. 2. Bilateral knee arthroscopies. 3. Multiple spinal lumbar punctures. 4. Sinus surgery. 5. Tonsillectomy. 6. Upper endoscopy. 7. Excision of lipoma of the thighs. 8. Status post gastric bypass. MEDICATIONS: 1. Vitamin A 2. Tussionex 3. Zofran. 4. Prilosec. 5. Multivitamin. 6. Toprol-XL. 7. Neurontin. 8. Flonase. 9. Lexapro. 10. Vitamin D. 11. Nascobol. 12. Biotin. 13. Xanax. 14. Nystatin powder. 15. Flexeril. ALLERGIES: 1. DARVOCET. 2. ASPIRIN. 3. LAMICTAL. 4. OXYCODONE. 5. FLUOXETINE. SOCIAL HISTORY: Lifelong nontobacco user. FAMILY HISTORY: Pertinent for colon cancer in father in his early 40s. Had Sj'ogren's disease. No reports of esophageal or stomach cancer. His family history of esophageal dysphagia such as achalasia. REVIEW OF SYSTEMS: CONSTITUTIONAL: At her height of 5 feet 4-1/4 inches, her ideal body weight is 144 pounds. Her highest weight was 255 pounds. Body mass index was 43.5. Today she comes in with 176 pounds. She has a total of 79 pounds lifetime. Body mass index down 30.0. Percent excess weight loss is 72%. GASTROINTESTINAL: Gastroesophageal reflux resolved. No reports of diarrhea. MUSCULOSKELETAL: Chronic pain of the bilateral knees improved. Has lower back pain as well as knee pain and bilateral foot pain, osteoarthritis also improved. HEENT: No troubles with vision or hearing. No reports of active dysphagia. RESPIRATORY: Has chronic cough. Has obstructive sleep apnea resolved. Prior history of bronchiectasis. CARDIOVASCULAR: Intermittent palpitations including chest pain from anxiety. NEURO: History of chronic headaches. She has been on work-up for her pseudotumor cerebri. Has multiple spinal taps. PSYCH: History of anxiety and depression. HEMATOLOGIC: Prior history of DVT. No reports of easy bruising or bleeding. SKIN: History of skin lipomas. No history of skin cancer. PHYSICAL EXAM: VITAL SIGNS: 5 feet 4.25 inches frame. Weight 176 pounds. Her body mass index 30.0. Vital Signs Temp 98.6 F 08/29/17 15:15 Pulse 65 08/29/17 15:15 Resp 16 08/29/17 15:15 BP 141/85 08/29/17 15:15 Pulse Ox ABDOMEN: Soft, nontender, nondistended. No palpable incisional hernias. GENERAL: Well-developed female in no acute distress. HEENT: No sclerae icterus. Extraocular movements grossly intact. Moist buccal mucosa. NECK: Supple without lymphadenopathy. CHEST: Nonlabored respirations. Equal bilateral excursions. CARDIOVASCULAR: Regular rate and rhythm. MUSCULOSKELETAL: No clubbing, cyanosis, or edema. NEURO: No focal or lateralizing signs. Cranial nerves II through XII grossly within normal limits. PSYCH: Appropriate affect. Alert and oriented to person, place and time. SKIN: Well-perfused. Good skin turgor. LABS: Laboratory Last Values WBC 8.2 k/uL (3.8-10.6) 08/01/17 14:30 RBC 5.50 m/uL (3.80-5.40) H 08/01/17 14:30 Hgb 15.1 gm/dL (11.4-16.0) 08/01/17 14:30 Hct 47.9 % (34.0-46.0) H 08/01/17 14:30 MCV 87.0 fL (80.0-100.0) 08/01/17 14:30 MCH 27.5 pg (25.0-35.0) 08/01/17 14:30 MCHC 31.6 g/dL (31.0-37.0) 08/01/17 14:30 RDW 13.5 % (11.5-15.5) 08/01/17 14:30 Plt Count 261 k/uL (150-450) 08/01/17 14:30 PT 10.7 sec (9.0-12.0) 08/01/17 14:30 INR 1.1 (<1.2) 08/01/17 14:30 APTT 24.0 sec (22.0-30.0) 08/01/17 14:30 Sodium 140 mmol/L (137-145) 08/01/17 14:30 Potassium 4.6 mmol/L (3.5-5.1) 08/01/17 14:30 Chloride 103 mmol/L (98-107) 08/01/17 14:30 Carbon Dioxide 29 mmol/L (22-30) 08/01/17 14:30 Anion Gap 8 mmol/L 08/01/17 14:30 BUN 21 mg/dL (7-17) H 08/01/17 14:30 Creatinine 0.80 mg/dL (0.52-1.04) 08/01/17 14:30 Est GFR (MDRD) Af Amer >60 (>60 ml/min/1.73 sqM) 08/01/17 14:30 Est GFR (MDRD) Non-Af >60 (>60 ml/min/1.73 sqM) 08/01/17 14:30 Glucose 108 mg/dL (74-99) H 08/01/17 14:[address] Glu mg/dL 103 08/01/17 14:30 Hemoglobin A1c 5.2 % (4.0-6.0) 08/01/17 14:30 Calcium 10.4 mg/dL (8.4-10.2) H 08/01/17 14:30 Phosphorus 4.8 mg/dL (2.5-4.5) H 08/01/17 14:30 Magnesium 2.2 mg/dL (1.6-2.3) 08/01/17 14:30 Iron 106 ug/dL (50-170) 08/01/17 14:30 TIBC 326 ug/dL (228-460) 08/01/17 14:30 Iron Saturation 32.52 (12.00-45.00) 08/01/17 14:30 Ferritin 71.9 ng/mL (10.0-291.0) 08/01/17 14:30 Total Bilirubin 0.4 mg/dL (0.2-1.3) 08/01/17 14:30 AST 21 U/L (14-36) 08/01/17 14:30 ALT 43 U/L (9-52) 08/01/17 14:30 Alkaline Phosphatase 81 U/L (38-126) 08/01/17 14:30 Total Protein 6.7 g/dL (6.3-8.2) 08/01/17 14:30 Albumin 4.3 g/dL (3.5-5.0) 08/01/17 14:30 Prealbumin 24.0 mg/dL (18.0-42.0) 08/01/17 14:30 Triglycerides 93 mg/dL (<150) 08/01/17 14:30 Cholesterol 152 mg/dL (<200) 08/01/17 14:30 LDL Cholesterol, Calc 80 mg/dL (0-99) 08/01/17 14:30 HDL Cholesterol 53 mg/dL (40-60) 08/01/17 14:30 Vitamin A 49 ug/dL (38-106) 08/01/17 14:30 Vitamin B1 63 ug/L (38-122) 08/01/17 14:30 Vitamin B12 1235.0 pg/mL (200.0-944.0) H 08/01/17 14:30 Vitamin D 25-Hydroxy 45.0 ng/mL (30.0-100.0) 08/01/17 14:30 Folate >24.0 ng/mL 08/01/17 14:30 TSH 0.046 mIU/L (0.465-4.680) L 08/01/17 14:30 PTH Intact 63.2 pg/mL (14.0-72.0) 08/01/17 14:30 Copper 1120 ug/L (810-1990) 08/01/17 14:30 Selenium 105 mcg/L (63-160) 08/01/17 14:30 Zinc 68 ug/dL (60-130) 08/01/17 14:30 Elevated calcium Suppressed TSH level, hyperthyroidism. ASSESSMENT: 1. Morbid obesity due to excess caloric intake. 2. Body mass index reduced from 43.5 down to 30.0. 3. Osteoarthritis of the bilateral knees, secondary to morbid obesity, improved. 4. Osteoarthritis of the bilateral feet, secondary to morbid obesity, improved. 5. Osteoarthritis of the lower back, secondary to morbid obesity, improved. 6. Obstructive sleep apnea, resolved. 7. Pseudotumor cerebri, improved. 8. Gastroesophageal reflux disease, resolved. 9. Hypertensive heart disease. 10. Panniculitis. 11. History of binge eating. 12. Status post gastric bypass. 13. Intermittent heart palpitations. 14. Hyperthyroidism. PLAN: 1. With her intermittent blood pressure as well as elevated heart rate, side effects between Neurontin and Lexapro reviewed and confirmed to cause intermittent thyroid storm. Recommend evaluation of thyroid disorder at the time of her symptoms. 2. Labs reviewed consistent with suppressed TSH and potential hypothyroidism of unclear cause. Medication side effects were reviewed. 3. Recommend potential evaluation with electronics scale tester as well as primary care provider. 4. Follow-up 6 months post-procedure November 2017. Objective - Vital Signs Vital signs: Vital Signs Temp 98.6 F 08/29/17 15:15 Pulse 65 08/29/17 15:15 Resp 16 08/29/17 15:15 BP 141/85 08/29/17 15:15 Pulse Ox Intake & Output 08/28/17 08/29/17 08/29/17 18:59 06:59 18:59 Weight 79.832 kg
== END | disposition home or self-care (01) ==
LOC: BARWHC3 14:12
PROVIDERS: ATTEND Surgery Plastic and Reconstructive Surgery
DX: Z48.815 Encounter for surgical aftercare following surgery on the digestive system (principal); E66.01 Morbid (severe) obesity due to excess calories; Z68.30 Body mass index [BMI] 30.0-30.9, adult; M17.0 Bilateral primary osteoarthritis of knee; M19.071 Primary osteoarthritis, right ankle and foot; M19.072 Primary osteoarthritis, left ankle and foot; M47.816 Spondylosis without myelopathy or radiculopathy, lumbar region; G93.2 Benign intracranial hypertension; I11.9 Hypertensive heart disease without heart failure; M79.3 Panniculitis, unspecified; E05.90 Thyrotoxicosis, unspecified without thyrotoxic crisis or storm; G47.30 Sleep apnea, unspecified; K21.9 Gastro-esophageal reflux disease without esophagitis; F41.9 Anxiety disorder, unspecified; F32.9 Major depressive disorder, single episode, unspecified; Z98.84 Bariatric surgery status; Z79.899 Other long term (current) drug therapy; Z88.5 Allergy status to narcotic agent; Z88.6 Allergy status to analgesic agent; Z88.8 Allergy status to other drugs, medicaments and biological substances; Z86.018 Personal history of other benign neoplasm; Z90.89 Acquired absence of other organs
CPT/HCPCS: 99211

== ENCOUNTER → 2018-01-16 | Outpatient (CLI) | payer BC ==
[2018-01-16 14:37] VITALS: BP 154/80; PULSE 87; RESP 16; TEMP 98; BMI 25.7
--- NOTE | 2018-01-16 15:20 | P.PN ---
Subjective Progress Note Date: 01/16/18 DATE OF SERVICE: 01/16/2018 CHIEF COMPLAINT: Follow gastric bypass. HISTORY OF PRESENT ILLNESS: Ana Lilia Hayes is a 52-year-old female who is status post gastric bypass 05/11/2017. At her height of 5 feet 4-1/4 inches, her ideal body weight is 144 pounds. Last seen 08/29/17. Her highest weight was 255 pounds. Body mass index was 43.5. Today she comes in with 176 pounds. She has a total of 79 pounds lifetime. Body mass index down 30.0. Percent excess weight loss is 72%. She is down to 151 pounds today. She is tearful today. She had the of her less than 6 months ago. Mother is living with her now who also has progressive dementia. She has a brother. She gets help from agency for home care. No other support at home. No reports of suicidal ideation. She reports troubles with skin with moderate skin sagging. She reports trouble with the skin of her abdomen. She has not walked outside. She is still very emotional from the sudden . She can eat potato chips. She has troubles with meats. PAST SURGICAL HISTORY: 1. Obstructive sleep apnea. 2. Morbid obesity. 3. Chronic headaches. 4. Osteoarthritis of bilateral knees. 5. Osteoarthritis of the lower back. 6. Gastroesophageal reflux disease. 7. Prior history of DVT. 8. Anxiety. 9. Depression. 10. Lipomas along the lower thighs. PAST SURGICAL HISTORY: 1. Appendectomy. 2. Bilateral knee arthroscopies. 3. Multiple spinal lumbar punctures. 4. Sinus surgery. 5. Tonsillectomy. 6. Upper endoscopy. 7. Excision of lipoma of the thighs. 8. Status post gastric bypass. MEDICATIONS: 1. Vitamin A 2. Tussionex 3. Zofran. 4. Prilosec. 5. Multivitamin. 6. Toprol-XL. 7. Neurontin. 8. Flonase. 9. Lexapro. 10. Vitamin D. 11. Nascobol. 12. Biotin. 13. Xanax. 14. Nystatin powder. 15. Flexeril. ALLERGIES: 1. DARVOCET. 2. ASPIRIN. 3. LAMICTAL. 4. OXYCODONE. 5. FLUOXETINE. SOCIAL HISTORY: Lifelong nontobacco user. FAMILY HISTORY: Pertinent for colon cancer in father in his early 40s. Had Sj'ogren's disease. No reports of esophageal or stomach cancer. His family history of esophageal dysphagia such as achalasia. REVIEW OF SYSTEMS: CONSTITUTIONAL: At her height of 5 feet 4-1/4 inches, her ideal body weight is 144 pounds. Her highest weight was 255 pounds. Body mass index was 43.5. Today she comes in with 176 pounds. She has a total of 79 pounds lifetime. Body mass index down 30.0. Percent excess weight loss is 72%. GASTROINTESTINAL: Gastroesophageal reflux resolved. No reports of diarrhea. MUSCULOSKELETAL: Chronic pain of the bilateral knees improved. Has lower back pain as well as knee pain and bilateral foot pain, osteoarthritis also improved. HEENT: No troubles with vision or hearing. No reports of active dysphagia. RESPIRATORY: Has chronic cough. Has obstructive sleep apnea resolved. Prior history of bronchiectasis. CARDIOVASCULAR: Intermittent palpitations including chest pain from anxiety. NEURO: History of chronic headaches. She has been on work-up for her pseudotumor cerebri. Has multiple spinal taps. PSYCH: History of anxiety and depression. HEMATOLOGIC: Prior history of DVT. No reports of easy bruising or bleeding. SKIN: History of skin lipomas. No history of skin cancer. PHYSICAL EXAM: VITAL SIGNS: 5 feet 4.25 inches frame. Weight 176 pounds. Her body mass index 30.0. Vital Signs Temp 98.6 F 08/29/17 15:15 Pulse 65 08/29/17 15:15 Resp 16 08/29/17 15:15 BP 141/85 08/29/17 15:15 Pulse Ox ABDOMEN: Soft, nontender, nondistended. No palpable incisional hernias. GENERAL: Well-developed female in no acute distress. HEENT: No sclerae icterus. Extraocular movements grossly intact. Moist buccal mucosa. NECK: Supple without lymphadenopathy. CHEST: Nonlabored respirations. Equal bilateral excursions. CARDIOVASCULAR: Regular rate and rhythm. MUSCULOSKELETAL: No clubbing, cyanosis, or edema. NEURO: No focal or lateralizing signs. Cranial nerves II through XII grossly within normal limits. PSYCH: Appropriate affect. Alert and oriented to person, place and time. SKIN: Well-perfused. Good skin turgor. ASSESSMENT: 1. Morbid obesity due to excess caloric intake. 2. Body mass index reduced from 43.5 down to 30.0. 3. Osteoarthritis of the bilateral knees, secondary to morbid obesity, improved. 4. Osteoarthritis of the bilateral feet, secondary to morbid obesity, improved. 5. Osteoarthritis of the lower back, secondary to morbid obesity, improved. 6. Obstructive sleep apnea, resolved. 7. Pseudotumor cerebri, improved. 8. Gastroesophageal reflux disease, resolved. 9. Hypertensive heart disease. 10. Panniculitis. 11. History of binge eating. 12. Status post gastric bypass. 13. Intermittent heart palpitations. 14. Hyperthyroidism. 15. Panniculitis. PLAN: 1. Recommend bariatric labs. 2. Upper endoscopy for dysphagia to meats. 3. Encourage to take walks. 4. Nystatin for panniculitis. Objective - Vital Signs Vital signs: Vital Signs Temp 98 F 01/16/18 14:35 Pulse 87 01/16/18 14:35 Resp 16 01/16/18 14:35 BP 154/80 01/16/18 14:35 Pulse Ox Intake & Output 01/15/18 01/16/18 01/16/18 18:59 06:59 18:59 Weight 68.492 kg
[2018-01-16 16:06] LABS: HCT 43.1 % (34.0-46.0); HGB 13.8 gm/dL (11.4-16.0); MCH 27.4 pg (25.0-35.0); MCHC 32.1 g/dL (31.0-37.0); MCV 85.3 fL (80.0-100.0); Mean Platelet Volume 8.2; Platelet Count 253 k/uL (150-450); RBC 5.05 m/uL (3.80-5.40); RDW 13.6 % (11.5-15.5); WBC 6.2 k/uL (3.8-10.6)
[2018-01-16 16:11] LABS: Partial Thromboplastin Time 23.7 sec (22.0-30.0); Prothrombin Time 10.1 sec (9.0-12.0)
[2018-01-16 16:21] LABS: ALT 33 U/L (9-52); AST 31 U/L (14-36); Albumin 4.1 g/dL (3.5-5.0); Alkaline Phosphatase 83 U/L (38-126); Anion Gap 12 mmol/L; Blood Urea Nitrogen 13 mg/dL (7-17); Calcium 9.8 mg/dL (8.4-10.2); Carbon Dioxide 28 mmol/L (22-30); Chloride 103 mmol/L (98-107); Cholesterol 166 mg/dL (<200); Glucose 95 mg/dL (74-99); HDL Cholesterol 84 mg/dL (40-60); LDL Cholesterol,Calculated 64 mg/dL (0-99); Magnesium 1.8 mg/dL (1.6-2.3); Potassium 4.6 mmol/L (3.5-5.1); Sodium 143 mmol/L (137-145); Total Bilirubin 0.3 mg/dL (0.2-1.3); Total Protein 6.2 g/dL (6.3-8.2); Triglycerides 88 mg/dL (<150)
[2018-01-17 01:22] LABS: Iron Saturation 18.98 (12.00-45.00)
[2018-01-17 01:33] LABS: Parathyroid Hormone Intact 63.2 pg/mL (14.0-72.0); Vitamin D 25 Hydroxy 47.4 ng/mL (30.0-100.0)
[2018-01-17 01:34] LABS: Folate, Serum >24.0 ng/mL
[2018-01-17 03:11] LABS: Hemoglobin A1C 5.3 % (4.0-6.0)
[2018-01-17 13:03] LABS: Zinc, Serum 68 ug/dL (60-130)
[2018-01-18 06:56] LABS: Vitamin A 43 ug/dL (38-106)
== END | disposition home or self-care (01) ==
LOC: BARWHC3 14:27
PROVIDERS: ATTEND Surgery Plastic and Reconstructive Surgery
DX: Z09 Encounter for follow-up examination after completed treatment for conditions other than malignant neoplasm (principal); E21.1 Secondary hyperparathyroidism, not elsewhere classified; E89.1 Postprocedural hypoinsulinemia; D50.9 Iron deficiency anemia, unspecified; K90.9 Intestinal malabsorption, unspecified; E55.9 Vitamin D deficiency, unspecified; K74.1 Hepatic sclerosis; N19 Unspecified kidney failure; K50.90 Crohn's disease, unspecified, without complications; E66.01 Morbid (severe) obesity due to excess calories; M17.0 Bilateral primary osteoarthritis of knee; M19.072 Primary osteoarthritis, left ankle and foot; M19.071 Primary osteoarthritis, right ankle and foot; M19.90 Unspecified osteoarthritis, unspecified site; G93.2 Benign intracranial hypertension; I11.9 Hypertensive heart disease without heart failure; I50.9 Heart failure, unspecified; M79.3 Panniculitis, unspecified; R00.2 Palpitations; E03.9 Hypothyroidism, unspecified; Z98.84 Bariatric surgery status; Z68.30 Body mass index [BMI] 30.0-30.9, adult; Z88.6 Allergy status to analgesic agent; Z88.8 Allergy status to other drugs, medicaments and biological substances; Z79.899 Other long term (current) drug therapy
CPT/HCPCS: 36415; 80053; 80061; 82306; 82525; 82607; 82728; 82746; 83036; 83540; 83550; 83735; 83970; 84100; 84134; 84255; 84425; 84443; 84590; 84630; 85027; 85610; 85730; 99211

== ENCOUNTER → 2018-03-18 | Outpatient (CLI) | payer BC ==
[2018-03-18 15:13] LABS: HCT 41.5 % (34.0-46.0); HGB 13.3 gm/dL (11.4-16.0); MCH 27.6 pg (25.0-35.0); MCHC 32.1 g/dL (31.0-37.0); Mean Platelet Volume 7.6; Platelet Count 252 k/uL (150-450); RBC 4.83 m/uL (3.80-5.40); RDW 13.4 % (11.5-15.5); WBC 6.6 k/uL (3.8-10.6)
[2018-03-18 15:25] LABS: Appearance,Urine Cloudy (Clear); Bacteria,Urine Occasional /hpf; Bilirubin,Urine Negative (Negative); Blood,Urine Small (Negative); Calcium Oxalate Crystals,Urine Occasional /hpf; Color,Urine Yellow; Glucose,Urine (UA) Negative (Negative); Ketones,Urine Negative (Negative); Leukocyte Esterase,Urine Trace (Negative); Mucus,Urine Rare /hpf; Nitrite,Urine Negative (Negative); PH, Urine 5.5 (5.0-8.0); Protein,Urine Trace (Negative); RBC,Urine 68 /hpf (0-5); Specific Gravity,Urine 1.018 (1.001-1.035); Squamous Epithelial Cell,Urine 1 /hpf (0-4); Urobilinogen,Urine <2.0 mg/dL (<2.0); WBC,Urine 10 /hpf (0-5)
[2018-03-18 15:29] LABS: ALT 35 U/L (9-52); AST 27 U/L (14-36); Albumin 3.7 g/dL (3.5-5.0); Alkaline Phosphatase 71 U/L (38-126); Anion Gap 8 mmol/L; Blood Urea Nitrogen 11 mg/dL (7-17); Calcium 9.6 mg/dL (8.4-10.2); Carbon Dioxide 31 mmol/L (22-30); Chloride 106 mmol/L (98-107); Glucose 132 mg/dL (74-99); Potassium 4.5 mmol/L (3.5-5.1); Sodium 145 mmol/L (137-145); Total Bilirubin 0.3 mg/dL (0.2-1.3); Total Protein 5.7 g/dL (6.3-8.2)
== END | disposition home or self-care (01) ==
LOC: LABWHC1 14:28
PROVIDERS: ATTEND Psychiatry & Neurology Neurology
DX: Z51.81 Encounter for therapeutic drug level monitoring (principal); Z79.899 Other long term (current) drug therapy
CPT/HCPCS: 36415; 80053; 81001; 85027

== ENCOUNTER → 2018-04-03 | Outpatient (CLI) | payer MEDICARE ==
[2018-04-03 17:29] LABS: Appearance,Urine Cloudy (Clear); Bilirubin,Urine Negative (Negative); Blood,Urine Moderate (Negative); Calcium Oxalate Crystals,Urine Occasional /hpf; Color,Urine Yellow; Glucose,Urine (UA) Negative (Negative); Ketones,Urine Negative (Negative); Leukocyte Esterase,Urine Small (Negative); Mucus,Urine Rare /hpf; Nitrite,Urine Negative (Negative); PH, Urine 5.5 (5.0-8.0); Protein,Urine Trace (Negative); RBC,Urine 63 /hpf (0-5); Specific Gravity,Urine 1.019 (1.001-1.035); Squamous Epithelial Cell,Urine <1 /hpf (0-4); Urobilinogen,Urine <2.0 mg/dL (<2.0); WBC,Urine 12 /hpf (0-5)
[2018-04-03 17:59] LABS: T4, Free (Free Thyroxine) 0.81 ng/dL (0.78-2.19)
[2018-04-04 04:21] LABS: Hemoglobin A1C 5.1 % (4.0-6.0)
== END | disposition home or self-care (01) ==
LOC: LABWHC1 16:21
PROVIDERS: ATTEND Psychiatry & Neurology Neurology
DX: E11.9 Type 2 diabetes mellitus without complications (principal); E03.9 Hypothyroidism, unspecified; N39.0 Urinary tract infection, site not specified; Z79.899 Other long term (current) drug therapy
CPT/HCPCS: 36415; 80307; 81001; 83036; 84439; 84443; 87086

== ENCOUNTER 2018-04-05 06:06 | Emergency (ER) | payer MEDICARE ==
[2018-04-05 06:14] VITALS: TEMP 98.2
[2018-04-05] MEDS ORDERED: SODIUM CHLORIDE 0.9% 500 ML IV STA (06:29)
--- NOTE | 2018-04-05 06:32 | ED ---
General Adult HPI - General Source: patient Mode of arrival: ambulatory Limitations: no limitations <Juan Robles - Last Filed: 04/05/18 06:31> <Teto Zavaleta - Last Filed: 04/05/18 12:13> - General Chief complaint: Abdominal Pain Stated complaint: Abdominal Pain - History of Present Illness Initial comments: Dictation was produced using zeenworld dictation software. please excuse any grammatical, word or spelling errors. Chief Complaint: 52-year-old female past medical history of gastric bypass presents with left lower quadrant abdominal pain. History of Present Illness: Patient is a 52-year-old female past medical history DVT, hypertension, sleep apnea, gastric bypass presents with left lower quadrant pain. Patient states her symptoms began yesterday. Denies any constitutional symptoms. Patient has been having diarrhea that has been affected with Imodium [id number]. Patient states she denies a past medical history of diverticulitis. Patient has no known history of ovarian or uterine pathology. She did have some postmenopausal bleeding last week however stopped. The ROS documented in this emergency department record has been reviewed and confirmed by me. Those systems with pertinent positive or negative responses have been documented in the HPI. All other systems are other negative and/or noncontributory. (Juan Robles) - Related Data Home Medications Medication Instructions Recorded Confirmed Fluticasone Propionate [Flonase 2 spray EA NOSTRIL BID PRN 02/23/16 04/05/18 Allergy Relief] Ondansetron HCl [Zofran] 8 mg PO Q8H PRN 07/20/16 04/05/18 Metoprolol Tartrate [Lopressor] 12.5 mg PO BID 05/11/17 04/05/18 ALPRAZolam [Xanax] 0.5 mg PO HS 08/12/17 04/05/18 Bariactiv Calc/D3/Mag 1 tab PO DAILY 08/12/17 04/05/18 Bariactiv Iron+Vitc 90mg/54mg 1 tab PO HS 08/12/17 04/05/18 Bariactiv Multivitamin 1 tab PO DAILY 08/12/17 04/05/18 Biotin 5 mg PO DAILY 08/12/17 04/05/18 CHLORPHEN-HYDROcod 8-10mg/5ml 5 ml PO Q12H PRN 08/12/17 04/05/18 [Tussionex] Cholecalciferol [Vitamin D3] 5,000 unit PO DAILY 08/12/17 04/05/18 Cyclobenzaprine [Flexeril] 7.5 mg PO HS 08/12/17 04/05/18 Gabapentin 1,600 mg PO BID 08/12/17 04/05/18 Nascobal 500mcg/Benton 1 spray NASAL Q7D 08/12/17 04/05/18 Vitamin A Acetate [Vitamin A] 10,000 unit SL DAILY 08/12/17 04/05/18 Melatonin 10 mg PO HS PRN 04/05/18 04/05/18 Nortriptyline HCl [Pamelor] 10 mg PO HS 04/05/18 04/05/18 Omeprazole 40 mg PO DAILY 04/05/18 04/05/18 Previous Rx's Medication Instructions Recorded HYDROcodone/APAP 5-325MG [Dows 1 tab PO Q6HR PRN #12 tab 04/05/18 5-325] Ibuprofen [Motrin] 600 mg PO Q8HR PRN #24 tab 04/05/18 Tamsulosin [Flomax] 0.4 mg PO DAILY #30 cap 04/05/18 Allergies Allergy/AdvReac Type Severity Reaction Status Date / Time lamotrigine [From Lamictal] Allergy Rash/Hives Verified 04/05/18 08:44 oxycodone HCl [From Percodan] AdvReac Itching Verified 04/05/18 08:44 oxycodone terephthalate AdvReac Itching Verified 04/05/18 08:44 [From Percodan] propoxyphene napsylate AdvReac Itching Verified 04/05/18 08:44 [From Darvocet-N] Review of Systems ROS Other: All systems not noted in ROS Statement are negative. <Juan Robles - Last Filed: 04/05/18 06:31> ROS Other: All systems not noted in ROS Statement are negative. <Teto Zavaleta - Last Filed: 04/05/18 12:13> ROS Statement: Those systems with pertinent positive or pertinent negative responses have been documented in the HPI. Past Medical History Past Medical History: Deep Vein Thrombosis (DVT), GERD/Reflux, Hypertension, Neurologic Disorder, Sleep Apnea/CPAP/BIPAP Additional Past Medical History / Comment(s): chronic headache, gets Botox injections for pain History of Any Multi-Drug Resistant Organisms: None Reported Past Surgical History: Appendectomy, Bariatric Surgery, Orthopedic Surgery, Tonsillectomy Additional Past Surgical History / Comment(s): sinus surgery, papito knee surgery, papito carpal tunnel, EGD gastric bypass 05-11-17 Past Anesthesia/Blood Transfusion Reactions: Postoperative Nausea & Vomiting ( PONV) Past Psychological History: Anxiety, Depression Smoking Status: Never smoker Past Alcohol Use History: None Reported Past Drug Use History: None Reported - Past Family History Mother Additional Family Medical History / Comment(s): sjogrens Sister(s) Family Medical History: Blood Disorder, Deep Vein Thrombosis (DVT) Additional Family Medical History / Comment(s): factor V Father Family Medical History: Hypertension Brother(s) Family Medical History: CVA/TIA, Hypertension Additional Family Medical History / Comment(s): recent TIA <Juan Robles - Last Filed: 04/05/18 06:31> General Exam Limitations: no limitations <Juan Robles - Last Filed: 04/05/18 06:31> <Teto Zavaleta - Last Filed: 04/05/18 12:13> - General Exam Comments Initial Comments: PHYSICAL EXAM: General Impression: Alert and oriented x3, not in acute distress HEENT: Normocephalic atraumatic, extra-ocular movements intact, pupils equal and reactive to light bilaterally, mucous membranes moist. Cardiovascular: Heart regular rate and rhythm, S1&S2 audible, no murmurs, rubs or gallops Chest: Lungs clear to auscultation bilaterally, no rhonchi, no wheeze, no rales Abdomen: Tenderness to palpation of left lower quadrant, no rebound tenderness Musculoskeletal: Pulses present and equal in all extremities, no peripheral edema Motor: Power 5/5 bilaterally, no focal deficits noted Neurological: CN II-XII grossly intact, no focal motor or sensory deficits noted Skin: Intact with no visualized rashes Psych: Normal affect and mood (Juan Robles) Vital Signs 04/05/18 04/05/18 04/05/18 06:10 08:51 11:12 Temperature 98.2 F Pulse Rate 74 78 67 Respiratory 18 18 16 Rate Blood Pressure 178/87 136/78 128/58 O2 Sat by Pulse 100 98 97 Oximetry Medical Decision Making <Juan Robles - Last Filed: 04/05/18 06:31> - Lab Data Result diagrams: 04/05/18 06:28 04/05/18 06:28 <Teto Zavaleta - Last Filed: 04/05/18 12:13> - Medical Decision Making ED course: 52-year-old female presents with chief complaint of left lower quadrant pain. Signs upon arrival shows blood pressure 170/87, rest of the vital signs are within normal limits. Patient does not have a history of diverticulitis. Laboratory evaluation obtained. Computed tomography scan of the abdomen and pelvis obtained. (Juan Robles) Patient's care signed out at shift change awaiting CT. CT does show a 6 mm left distal ureter stone at the proximal UVJ with hydroureter and hydronephrosis. Urinalysis shows trace blood, normal CBC, normal CMP. Patient receives multiple doses of pain medication the emergency department. She is experiencing some pain but this is tolerable on reevaluation. Case is discussed with urology, given the hydroureter and hydronephrosis, they feel it is stable for patient to be discharged with outpatient follow-up. She will continue to strain her urine. She will be prescribed pain control and Flomax. She will follow-up with urology. She will return with worsening pain, vomiting , or fever. (Teto Zvaaleta) - Lab Data Lab Results 04/05/18 04/05/18 04/05/18 Range/Units 06:25 06:28 06:28 WBC 8.7 (3.8-10.6) k/uL RBC 5.14 (3.80-5.40) m/uL Hgb 14.1 (11.4-16.0) gm/dL Hct 44.3 (34.0-46.0) % MCV 86.3 (80.0-100.0) fL MCH 27.5 (25.0-35.0) pg MCHC 31.9 (31.0-37.0) g/dL RDW 13.3 (11.5-15.5) % Plt Count 169 (150-450) k/uL Neutrophils % 71 % Lymphocytes % 17 % Monocytes % 8 % Eosinophils % 0 % Basophils % 0 % Neutrophils # 6.2 (1.3-7.7) k/uL Lymphocytes # 1.5 (1.0-4.8) k/uL Monocytes # 0.7 (0-1.0) k/uL Eosinophils # 0.0 (0-0.7) k/uL Basophils # 0.0 (0-0.2) k/uL PT (9.0-12.0) sec INR (<1.2) Sodium 141 (137-145) mmol/L Potassium 4.5 (3.5-5.1) mmol/L Chloride 106 (98-107) mmol/L Carbon Dioxide 28 (22-30) mmol/L Anion Gap 7 mmol/L BUN 15 (7-17) mg/dL Creatinine 1.05 H (0.52-1.04) mg/dL Est GFR (CKD-EPI)AfAm 70 (>60 ml/min/1.73 sqM) Est GFR (CKD-EPI)NonAf 60 (>60 ml/min/1.73 sqM) Glucose 114 H (74-99) mg/dL Calcium 9.5 (8.4-10.2) mg/dL Total Bilirubin 0.6 (0.2-1.3) mg/dL AST 34 (14-36) U/L ALT 34 (9-52) U/L Alkaline Phosphatase 80 (38-126) U/L Total Protein 6.1 L (6.3-8.2) g/dL Albumin 3.8 (3.5-5.0) g/dL Lipase 77 (23-300) U/L Urine Color Light Yellow Urine Appearance Clear (Clear) Urine pH 5.5 (5.0-8.0) Ur Specific [place] 1.013 (1.001-1.035) Urine Protein Negative (Negative) Urine Glucose (UA) Negative (Negative) Urine Ketones Negative (Negative) Urine Blood Trace H (Negative) Urine Nitrite Negative (Negative) Urine Bilirubin Negative (Negative) Urine Urobilinogen <2.0 (<2.0) mg/dL Ur Leukocyte Esterase Negative (Negative) Urine RBC 4 (0-5) /hpf Urine WBC 2 (0-5) /hpf Ur Squamous Epith Cells <1 (0-4) /hpf Urine Mucus Rare H (None) /hpf 04/05/18 Range/Units 06:28 WBC (3.8-10.6) k/uL RBC (3.80-5.40) m/uL Hgb (11.4-16.0) gm/dL Hct (34.0-46.0) % MCV (80.0-100.0) fL MCH (25.0-35.0) pg MCHC (31.0-37.0) g/dL RDW (11.5-15.5) % Plt Count (150-450) k/uL Neutrophils % % Lymphocytes % % Monocytes % % Eosinophils % % Basophils % % Neutrophils # (1.3-7.7) k/uL Lymphocytes # (1.0-4.8) k/uL Monocytes # (0-1.0) k/uL Eosinophils # (0-0.7) k/uL Basophils # (0-0.2) k/uL PT 9.8 (9.0-12.0) sec INR 1.0 (<1.2) Sodium (137-145) mmol/L Potassium (3.5-5.1) mmol/L Chloride (98-107) mmol/L Carbon Dioxide (22-30) mmol/L Anion Gap mmol/L BUN (7-17) mg/dL Creatinine (0.52-1.04) mg/dL Est GFR (CKD-EPI)AfAm (>60 ml/min/1.73 sqM) Est GFR (CKD-EPI)NonAf (>60 ml/min/1.73 sqM) Glucose (74-99) mg/dL Calcium (8.4-10.2) mg/dL Total Bilirubin (0.2-1.3) mg/dL AST (14-36) U/L ALT (9-52) U/L Alkaline Phosphatase (38-126) U/L Total Protein (6.3-8.2) g/dL Albumin (3.5-5.0) g/dL Lipase (23-300) U/L Urine Color Urine Appearance (Clear) Urine pH (5.0-8.0) Ur Specific [place] (1.001-1.035) Urine Protein (Negative) Urine Glucose (UA) (Negative) Urine Ketones (Negative) Urine Blood (Negative) Urine Nitrite (Negative) Urine Bilirubin (Negative) Urine Urobilinogen (<2.0) mg/dL Ur Leukocyte Esterase (Negative) Urine RBC (0-5) /hpf Urine WBC (0-5) /hpf Ur Squamous Epith Cells (0-4) /hpf Urine Mucus (None) /hpf Disposition <Juan Robles - Last Filed: 04/05/18 06:31> Is patient prescribed a controlled substance at d/c from ED?: Yes When asked, does pt state using other controlled substances?: No If prescribed controlled substance>3 days was MAPS reviewed?: Prescribed <3 Days If opioid is for acute pain is fill amount 7 days or less?: Yes If Rx opioid, was Start Talking consent form obtained?: Yes Time of Disposition: 12:12 <Teto Zavaleta - Last Filed: 04/05/18 12:13> Clinical Impression: Calculus of kidney Disposition: HOME SELF-CARE Condition: Good Instructions: Kidney Stones (ED), Renal Colic (ED), How to Strain Your Urine ( ED) Prescriptions: HYDROcodone/APAP 5-325MG [Dows 5-325] 1 tab PO Q6HR PRN #12 tab PRN Reason: Pain Ibuprofen [Motrin] 600 mg PO Q8HR PRN #24 tab PRN Reason: Pain Tamsulosin [Flomax] 0.4 mg PO DAILY #30 cap Referrals: Wes Hinton DO [Primary Care Provider] - 1-2 days Zion Seymour MD [STAFF PHYSICIAN] - 1-2 days
[2018-04-05 07:15] LABS: Basophils % (A) 0 %; Eosinophils % (A) 0 %; HCT 44.3 % (34.0-46.0); HGB 14.1 gm/dL (11.4-16.0); Lymphocytes # (A) 1.5 k/uL (1.0-4.8); Lymphocytes % (A) 17 %; MCH 27.5 pg (25.0-35.0); MCHC 31.9 g/dL (31.0-37.0); MCV 86.3 fL (80.0-100.0); Monocytes # (A) 0.7 k/uL (0-1.0); Monocytes % (A) 8 %; Neutrophils # (A) 6.2 k/uL (1.3-7.7); Neutrophils % (A) 71 %; Platelet Count 169 k/uL (150-450); Prothrombin Time 9.8 sec (9.0-12.0); RBC 5.14 m/uL (3.80-5.40); RDW 13.3 % (11.5-15.5); WBC 8.7 k/uL (3.8-10.6)
[2018-04-05 07:17] LABS: Albumin 3.8 g/dL (3.5-5.0); Calcium 9.5 mg/dL (8.4-10.2); Total Bilirubin 0.6 mg/dL (0.2-1.3); Total Protein 6.1 g/dL (6.3-8.2)
[2018-04-05 07:25] LABS: Potassium 4.5 mmol/L (3.5-5.1)
[2018-04-05 07:35] LABS: Appearance,Urine Clear (Clear); Bilirubin,Urine Negative (Negative); Blood,Urine Trace (Negative); Color,Urine Light Yellow; Glucose,Urine (UA) Negative (Negative); Ketones,Urine Negative (Negative); Leukocyte Esterase,Urine Negative (Negative); Mucus,Urine Rare /hpf; Nitrite,Urine Negative (Negative); PH, Urine 5.5 (5.0-8.0); Protein,Urine Negative (Negative); RBC,Urine 4 /hpf (0-5); Specific Gravity,Urine 1.013 (1.001-1.035); Squamous Epithelial Cell,Urine <1 /hpf (0-4); Urobilinogen,Urine <2.0 mg/dL (<2.0); WBC,Urine 2 /hpf (0-5)
--- NOTE | 2018-04-05 07:39 | CT ---
EXAMINATION TYPE: CT abdomen pelvis w con DATE OF EXAM: 04/05/2018 HISTORY: LLQ pain, diarrhea CT DLP: 465.2mGycm Automated Exposure Control for Dose Reduction was Utilized. CONTRAST: CT scan of the abdomen and pelvis is performed with IV Contrast, patient injected with 100 mL of Isov ue 300. COMPARISON: CT of 2012. FINDINGS: LUNG BASES: There is a small pericardial effusion measuring 1.0 cm in greatest thickness is partially visualized. LIVER/GB: A too small to accurately characterize hepatic lesion within the left lobe measures 8 mm an d was present on the exam of 2012 likely related to a benign cyst. Additionally there is a wedge-shap ed area of hypoattenuation near the falciform ligament most commonly related to hepatic steatosis and also seen on the prior exam of 2012. No new hepatic lesion is seen. Gallbladder is elongated althoug h there is no evidence of cholelithiasis. PANCREAS: No significant abnormality is seen. SPLEEN: Few calcified granulomas are seen at the periphery of the spleen. ADRENALS: No significant abnormality is seen. KIDNEYS: There is obstructing 6 mm calculus at the left distal ureter just proximal to the left urete rovesicular junction. Urinary bladder is overall decompressed. This calculus creates moderate left hy droureteronephrosis, asymmetric enlargement of the left kidney and decreased enhancement of the left kidney likely due to edema. There is perinephric fat stranding on the left however there is no strand ing fluid collection to suggest perinephric abscess. There are additional nonobstructing calculi bila terally, 3 mm on the left, 1 mm in the mid pole, 3 mm in the right lower pole, 2 mm in the right lowe r pole and additional 2 mm calculus also in the right lower pole. No right-sided hydronephrosis. BOWEL: Postsurgical change at the gastroesophageal junction is noted from partial gastrectomy. Anasto motic site again is seen within the left mid abdomen. LYMPH NODES: No greater than 1cm abdominal or pelvic lymph nodes are appreciated. OSSEOUS STRUCTURES: Osseous structures appear intact. OTHER: Venous varicosities are seen within the subcutaneous ventral abdomen. There is generalized mil d mesenteric congestion. IMPRESSION: There is a 6 mm obstructing calculus within the left distal ureter just proximal to the left ureterov esicular junction creating moderate left hydroureteronephrosis, perinephric fat stranding without foc al fluid collection to suggest abscess, decreased enhancement suggesting edema of the left kidney, an d asymmetric enlargement of the left kidney secondary to acute obstruction.
[2018-04-05] MEDS ORDERED: MORPHINE SULFATE 4 MG/ML SYRINGE IVP STA ×3 (07:43→10:44)
[2018-04-05] MEDS ORDERED: SODIUM CHLORIDE 0.9% 500 ML IV ONE (07:57)
[2018-04-05] MEDS ORDERED: KETOROLAC 30 MG/ML 1 ML VIAL IVP STA (07:57)
--- NOTE | 2018-04-05 09:58 | XR ---
EXAMINATION TYPE: XR KUB DATE OF EXAM: 04/05/2018 COMPARISON: NONE HISTORY: Pain TECHNIQUE: One view abdominal series FINDINGS: The osseous structures are intact. The bowel gas pattern is nonspecific. Contrast is seen within the left collecting system and ureter to the level of the UVJ. Tiny calcification suspected measuring ap proximately 5 mm. Contrast in the bladder noted. Punctate calcifications overlying the right kidney w hich are difficult to measure or quantify due to extensive overlying bowel gas. Previous surgery in t he abdomen suggested. IMPRESSION: 1. Left-sided apparent hydronephrosis and hydroureter suspected distal left ureteral calculus.
[2018-04-05] MEDS ORDERED: IBUPROFEN 600 MG TAB PO STA (10:53)
[2018-04-05 11:13] VITALS: BP 128/58; PULSE 67; RESP 16
== END 2018-04-05 12:33 | disposition home or self-care (01) ==
LOC: EC 06:06
DX: N13.2 Hydronephrosis with renal and ureteral calculous obstruction (principal); R19.7 Diarrhea, unspecified; K21.9 Gastro-esophageal reflux disease without esophagitis; I10 Essential (primary) hypertension; G47.30 Sleep apnea, unspecified; Z99.89 Dependence on other enabling machines and devices; F32.9 Major depressive disorder, single episode, unspecified; F41.9 Anxiety disorder, unspecified; Z79.899 Other long term (current) drug therapy; Z88.8 Allergy status to other drugs, medicaments and biological substances; Z88.5 Allergy status to narcotic agent; Z86.718 Personal history of other venous thrombosis and embolism; Z90.49 Acquired absence of other specified parts of digestive tract
CPT/HCPCS: 36415; 80053; 83690; 85025; 85610; 81001; 87086; 74018; 74177; 99284; 96374; 96375; 96376 ×2; 96361; J2270; J1885; Q9967

== ENCOUNTER → 2018-04-16 | Outpatient (CLI) | payer MEDICARE ==
--- NOTE | 2018-04-16 13:36 | XR ---
Abdomen HISTORY: Left ureteral stone Frontal view of the abdomen on 2 images correlated to prior exam dated 04/05/2018 Postop changes are noted to the left abdomen. Air-filled loops of bowel could represent an underlying ileus. No evident pneumoperitoneum or bowel obstruction. Multiple calcifications are again noted within the pelvis. Distal left ureteral calculus persists at the same level and measures approximately 7-8 mm by 4 to 5 mm. Contrast is cleared from the left [place] l collecting system. IMPRESSION: Persistent distal left ureteral calculus.
== END | disposition home or self-care (01) ==
LOC: RADXRMAIN 12:20
PROVIDERS: ATTEND Urology
DX: N20.1 Calculus of ureter (principal)
CPT/HCPCS: 74018

== ENCOUNTER → 2018-04-22 | Outpatient (CLI) | payer MEDICARE ==
[2018-04-22 20:23] LABS: Hemoglobin A1C 5.3 % (4.0-6.0)
== END | disposition home or self-care (01) ==
LOC: LABWHC1 09:39
PROVIDERS: ATTEND Psychiatry & Neurology Psychiatry
DX: E11.9 Type 2 diabetes mellitus without complications (principal); F33.2 Major depressive disorder, recurrent severe without psychotic features; Z79.899 Other long term (current) drug therapy
CPT/HCPCS: 36415; 80335; 83036

== ENCOUNTER → 2018-04-30 | Outpatient (CLI) | payer MEDICARE ==
--- NOTE | 2018-04-30 09:50 | XR ---
EXAMINATION TYPE: XR KUB DATE OF EXAM: 04/30/2018 COMPARISON: 04/16/2018 HISTORY: Pain TECHNIQUE: One view abdominal series FINDINGS: The osseous structures are intact. The bowel gas pattern is nonspecific. There are tiny calcificatio ns in the pelvis which are stable. Postsurgical changes are noted in the upper abdomen. Right kidney: There is a calcific density overlying the expected location of the lower pole the right kidney measuring 5 mm.. IMPRESSION: 1. Calcifications in the pelvis majority which are likely vascular, however, the larger calcification appears to be in a more distal location and may be at the level the UVJ or bladder. 2. Right renal calculus suspected.
== END ==
LOC: RADXRMAIN 09:21
PROVIDERS: ATTEND Urology
DX: R93.5 Abnormal findings on diagnostic imaging of other abdominal regions, including retroperitoneum (principal)
CPT/HCPCS: 74018

== ENCOUNTER → 2018-05-15 | Outpatient (CLI) | payer MEDICARE, BC ==
[2018-05-15 14:38] VITALS: BP 143/87; PULSE 74; RESP 15; TEMP 98.2; BMI 24.3
--- NOTE | 2018-07-16 13:20 | P.PN ---
Subjective Progress Note Date: 05/15/18 HPI: She has lost over 100+ pounds. No acute troubles with swallowing except with meats and very infrequently. She reports panniculitis and itching worse in the summer. She reports more troubles with her breast. ABDOMEN: Mild panniculitis. Skin elastosis PLAN: 1. Recommend Nystatin has been prescribed 2. Recommend labs 3. Follow up in 1 year. Objective - Vital Signs Vital signs: Vital Signs Temp 98.2 F 05/15/18 14:25 Pulse 74 05/15/18 14:25 Resp 15 05/15/18 14:25 BP 143/87 05/15/18 14:25 Pulse Ox Intake & Output 05/14/18 05/15/18 05/15/18 18:59 06:59 18:59 Weight 64.864 kg
== END | disposition home or self-care (01) ==
LOC: BARWHC3 13:36
PROVIDERS: ATTEND Surgery Plastic and Reconstructive Surgery
DX: M79.3 Panniculitis, unspecified (principal); L29.9 Pruritus, unspecified; L57.8 Other skin changes due to chronic exposure to nonionizing radiation; E66.01 Morbid (severe) obesity due to excess calories; E21.1 Secondary hyperparathyroidism, not elsewhere classified; D50.9 Iron deficiency anemia, unspecified; E44.0 Moderate protein-calorie malnutrition; E55.9 Vitamin D deficiency, unspecified; K74.1 Hepatic sclerosis; N19 Unspecified kidney failure; K50.90 Crohn's disease, unspecified, without complications; Z68.24 Body mass index [BMI] 24.0-24.9, adult
CPT/HCPCS: 99211

== ENCOUNTER → 2018-06-07 | Outpatient (CLI) | payer MEDICARE, BC | LOC: LABWHC1 13:55 | PROVIDERS: ATTEND Psychiatry & Neurology Psychiatry | DX: F33.2 Major depressive disorder, recurrent severe without psychotic features (principal); Z79.899 Other long term (current) drug therapy | CPT/HCPCS: 36415; 80335 ==

== ENCOUNTER → 2018-06-11 | Outpatient (CLI) | payer MEDICARE | END | disposition home or self-care (01) | LOC: LABWHC1 13:23 | PROVIDERS: ATTEND Psychiatry & Neurology Psychiatry | DX: D64.9 Anemia, unspecified (principal) | CPT/HCPCS: 36415; 82607 ==

== ENCOUNTER → 2018-07-17 | Outpatient (CLI) | payer MEDICARE ==
[2018-07-17 17:06] LABS: T4, Free (Free Thyroxine) 0.8 ng/dL (0.78-2.19)
--- NOTE | 2018-07-18 10:02 | BD ---
EXAMINATION TYPE: Axial Bone Density DATE OF EXAM: 07/17/2018 COMPARISON: NONE CLINICAL HISTORY: Postmenopausal female Height: 63 Weight: 145.1 FRAX RISK QUESTIONS: Alcohol (3 or more units per day): no Family History (Parent hip fracture): no Glucocorticoids (More than 3mos): no (Ex: prednisone, prednisolone, methylprednisolone, dexamethasone, and hydrocortisone). History of Fracture in Adulthood: no Secondary Osteoporosis: 1. Type 1 Diabetes: no 2. Hyperthyroidism: no 3. Menopause before 45: 4. Malnutrition: no 5. Chronic liver disease: no Rheumatoid Arthritis: no Current Tobacco Use: no RISK FACTORS HISTORY OF: Family History of Osteoporosis: no Active: no Diet low in dairy products/other sources of calcium: yes Postmenopausal woman: 2010 Lost more than 2 inches in height since high school: no MEDICATIONS: Metroprolol, Neurontin, fluticasone, omeprazole, melatonin, Zofran, vitamins Additional History: EXAM MEASUREMENTS: Bone mineral densitometry was performed using the [employer] System. Bone mineral density as measured about the Lumbar spine is: ----- L1-L4(G/cm2): 0.961 T Score Values are as follows: ----- L2: -2.5 ----- L3: -1.7 ----- L4: -1.4 ----- L1-L4: -1.8 Bone mineral density : baseline Bone mineral density about the R hip (g/cm2): 0.884 Bone mineral density about the L hip (g/cm2): 0.867 T Score values are as follows: -----R Neck: -1.1 -----L Neck: -1.2 -----R Total: -0.3 -----L Total: -0.4 Bone mineral density : baseline IMPRESSION: Osteopenia (T Score between -2.5 and -1) in the low back and both hips. There is slightly increased risk of fracture and the patient may be considered for treatment. Re-Screen 2-5 years. NOTE: T-SCORE=SD OF THE YOUNG ADULT MEAN.
--- NOTE | 2018-07-18 13:17 | MM ---
Reason for exam: screening (asymptomatic). Last mammogram was performed 4 years and 8 months ago. History: Patient is postmenopausal and is nulliparous. Family history of breast cancer in maternal grandmother at age 40. Physical Findings: A clinical breast exam by your physician is recommended on an annual basis and results should be correlated with mammographic findings. MG 3D Screening Mammo W/Cad Bilateral CC and MLO view(s) were taken. Prior study comparison: October 30, 2013, bilateral digital screening mammo w/CAD. October 02, 2012, bilateral digital screening mammo w/CAD. The breast tissue is heterogeneously dense. This may lower the sensitivity of mammography. No significant changes when compared with prior studies. ASSESSMENT: Benign, BI-RAD 2 RECOMMENDATION: Routine screening mammogram of both breasts in 1 year.
== END | disposition home or self-care (01) ==
LOC: RADMAMWWP 14:31
PROVIDERS: ATTEND Obstetrics & Gynecology
DX: Z12.31 Encounter for screening mammogram for malignant neoplasm of breast (principal); M85.88 Other specified disorders of bone density and structure, other site; R94.6 Abnormal results of thyroid function studies; F33.2 Major depressive disorder, recurrent severe without psychotic features; Z79.899 Other long term (current) drug therapy; Z80.3 Family history of malignant neoplasm of breast
CPT/HCPCS: 77063; 77067; 77080; 80335; 84439; 84443; 86376

== ENCOUNTER → 2018-08-06 | Outpatient (CLI) | payer MEDICARE | END | disposition home or self-care (01) | LOC: LABWHC1 15:45 | PROVIDERS: ATTEND Psychiatry & Neurology Psychiatry | DX: F33.2 Major depressive disorder, recurrent severe without psychotic features (principal); Z79.899 Other long term (current) drug therapy | CPT/HCPCS: 36415; 80335 ==

== ENCOUNTER 2018-09-06 12:08 | Day surgery (SDC) | payer MEDICARE ==
[2018-09-05 09:37] VITALS: BMI 24.0
[~2018-09-06 12:08] MED LIST changes: -DEXAMETHASONE SOD PHOSPHATE 10 MG/ML 1 ML VIAL IV ONE; -ENOXAPARIN 40 MG/0.4 ML SYRINGE SQ ONE; +LACTATED RINGERS 1,000 ML IV SCH; +LIDOCAINE 1% 20 ML VIAL (10MG/ML) FOR IV START INTRADERMA PRN; -MIDAZOLAM 2 MG/2 ML VIAL IV PRN; -ONDANSETRON 4 MG/2 ML VIAL IVP ONE; -SCOPOLAMINE 1.5MG/72HR PATCH TRANSDERM ONE; -ceFAZolin 2 GM in SODIUM CHLORIDE 0.9% 100 ML IVPB ONE; -fentaNYL (PF) 50 MCG/ML 2 ML AMP IV PRN
[2018-09-06 12:52] VITALS: RESP 16; TEMP 98.8
[2018-09-06] MEDS ORDERED: PROPOFOL 10 MG/ML 20 ML VIAL IV ONE (12:53)
[2018-09-06 13:46] VITALS: BP 121/73; PULSE 66
--- NOTE | 2018-09-06 14:09 | P.PCN ---
Date of Procedure: 09/06/18 Procedure(s) Performed: BRIEF HISTORY: Patient is a 53-year-old pleasant white female, scheduled for an elective colonoscopy as a part of screening for colorectal neoplasia. She does have family history of colon cancer diagnosed in her grandparent at age 45. PROCEDURE PERFORMED: Colonoscopy. PREOPERATIVE DIAGNOSIS: Screening for colon cancer/family history of colon cancer. IV sedation per Anesthesia. PROCEDURE: After informed consent was obtained, the patient, was brought into the endoscopy unit. IV sedation was administered by Anesthesia under continuous monitoring. Digital rectal examination was normal. Initially the Olympus CF- 160 flexible video colonoscope was then inserted in the rectum, gradually advanced into the cecum without any difficulty. Careful examination was performed as the scope was gradually being withdrawn. Ileocecal valve and the appendiceal orifice were visualized and appeared normal. Prep was excellent. Mucosa of the cecum, ascending colon, transverse colon, descending colon, sigmoid colon, and rectum appeared normal. Retroflexion was performed in the rectum and no lesions were seen. The patient tolerated the procedure well. IMPRESSION: Normal-appearing colon from rectum to cecum with no evidence of colorectal neoplasia. RECOMMENDATIONS: Findings of this examination were discussed with the patient is well as her family. She was advised to have a repeat screening colonoscopy in 5 years because of the family history of colon cancer.
== END 2018-09-06 14:17 | disposition home or self-care (01) ==
LOC: ORWHC2ENDO 12:08
PROVIDERS: ATTEND Internal Medicine Gastroenterology
DX: Z12.11 Encounter for screening for malignant neoplasm of colon (principal); I10 Essential (primary) hypertension; G47.33 Obstructive sleep apnea (adult) (pediatric); K21.9 Gastro-esophageal reflux disease without esophagitis; F41.9 Anxiety disorder, unspecified; F32.9 Major depressive disorder, single episode, unspecified; Z80.0 Family history of malignant neoplasm of digestive organs; Z88.5 Allergy status to narcotic agent; Z86.718 Personal history of other venous thrombosis and embolism; Z79.899 Other long term (current) drug therapy; Z98.84 Bariatric surgery status
CPT/HCPCS: J2704; G0105

== ENCOUNTER → 2018-09-26 | Outpatient (CLI) | payer MEDICARE | END | disposition home or self-care (01) | LOC: LABWHC1 13:16 | PROVIDERS: ATTEND Psychiatry & Neurology Psychiatry | DX: F33.2 Major depressive disorder, recurrent severe without psychotic features (principal); Z79.899 Other long term (current) drug therapy | CPT/HCPCS: 36415 ==

== ENCOUNTER → 2018-12-05 | Outpatient (CLI) | payer MEDICARE | END | disposition home or self-care (01) | LOC: LABWHC1 09:59 | PROVIDERS: ATTEND Psychiatry & Neurology Psychiatry | DX: F33.2 Major depressive disorder, recurrent severe without psychotic features (principal); Z79.899 Other long term (current) drug therapy | CPT/HCPCS: 36415 ==

== ENCOUNTER 2019-03-01 20:33 | Emergency (ER) | payer MEDICARE ==
[2019-03-01 20:52] VITALS: BP 161/91; PULSE 80; RESP 18; TEMP 98.2
--- NOTE | 2019-03-01 21:25 | ED ---
Female Urogenital HPI - General Chief complaint: Urogenital Stated complaint: Hematuria Time Seen by Provider: 03/01/19 20:56 Source: patient Mode of arrival: ambulatory Limitations: no limitations - History of Present Illness Initial comments: 53-year-old female patient presents to the emergency department today for evaluation of hematuria. Patient states that she noticed blood in her urine starting this morning. Patient states it has been consistent throughout the day. Patient states her urine is a dark red color. Patient denies any dysuria, urinary frequency, urinary urgency. Denies any lower abdominal pain or flank pain. Patient states that she does have history of kidney stone however is not having any pain or similar symptoms to her previous episode. States her last urinary tract infection was a couple of years ago. Denies any fever or chills with this. Denies any nausea or vomiting. Denies any use of anticoagulant or antiplatelet medications. Patient denies any recent rash, shortness breath, chest pain, diarrhea, constipation, back pain, numbness, tingling, dizziness, weakness, headache, visual changes, or any other complaints. - Related Data Home Medications Medication Instructions Recorded Confirmed Fluticasone Propionate [Flonase 2 spray EA NOSTRIL BID PRN 02/23/16 09/06/18 Allergy Relief] Ondansetron HCl [Zofran] 8 mg PO Q8H PRN 07/20/16 09/06/18 Metoprolol Tartrate [Lopressor] 12.5 mg PO BID 05/11/17 09/06/18 ALPRAZolam [Xanax] 0.25 mg PO BID 08/12/17 09/06/18 Bariactiv Calc/D3/Mag 1 tab PO DAILY 08/12/17 09/06/18 Bariactiv Iron+Vitc 90mg/54mg 1 tab PO HS 08/12/17 09/06/18 Bariactiv Multivitamin 1 tab PO DAILY 08/12/17 09/06/18 Biotin 5 mg PO DAILY 08/12/17 09/06/18 CHLORPHEN-HYDROcod 8-10mg/5ml 5 ml PO Q12H PRN 08/12/17 09/05/18 [Tussionex] Cholecalciferol [Vitamin D3 (25 5,000 unit PO DAILY 08/12/17 09/06/18 Mcg = 1000 Iu)] Gabapentin 1,600 mg PO BID 08/12/17 09/06/18 Vitamin A Acetate [Vitamin A] 10,000 unit SL DAILY 08/12/17 09/06/18 Melatonin 10 mg PO HS PRN 04/05/18 09/06/18 Nortriptyline HCl [Pamelor] 50 mg PO HS 04/05/18 09/06/18 Omeprazole 40 mg PO DAILY PRN 04/05/18 09/06/18 Cyanocobalamin (Vitamin B-12) 5,000 mcg PO DAILY 09/05/18 09/06/18 [Vitamin B-12] Vortioxetine Hydrobromide 20 mg PO DAILY 09/05/18 09/06/18 [Trintellix] Allergies Allergy/AdvReac Type Severity Reaction Status Date / Time lamotrigine [From Lamictal] Allergy Rash/Hives Verified 03/01/19 20:51 oxycodone HCl [From Percodan] AdvReac Itching Verified 03/01/19 20:51 oxycodone terephthalate AdvReac Itching Verified 03/01/19 20:51 [From Percodan] propoxyphene napsylate AdvReac Itching Verified 03/01/19 20:51 [From Darvocet-N] Review of Systems ROS Statement: Those systems with pertinent positive or pertinent negative responses have been documented in the HPI. ROS Other: All systems not noted in ROS Statement are negative. Past Medical History Past Medical History: Deep Vein Thrombosis (DVT), GERD/Reflux, Hypertension, Neurologic Disorder, Sleep Apnea/CPAP/BIPAP Additional Past Medical History / Comment(s): chronic headache-gets Botox injections for pain, used to use CPAP but not since weight loss, recent sleep study, DVT 2012, family hx. colon cancer History of Any Multi-Drug Resistant Organisms: None Reported Past Surgical History: Appendectomy, Bariatric Surgery, Orthopedic Surgery, Tonsillectomy Additional Past Surgical History / Comment(s): sinus surgery, papito knee surgery, papito carpal tunnel, EGD gastric bypass 05-11-17 Past Anesthesia/Blood Transfusion Reactions: Postoperative Nausea & Vomiting (PONV) Past Psychological History: Anxiety, Depression Smoking Status: Never smoker Past Alcohol Use History: None Reported Past Drug Use History: None Reported - Past Family History Mother Additional Family Medical History / Comment(s): sjogrens Sister(s) Family Medical History: Blood Disorder, Deep Vein Thrombosis (DVT) Additional Family Medical History / Comment(s): factor V Father Family Medical History: Hypertension Brother(s) Family Medical History: CVA/TIA, Hypertension Additional Family Medical History / Comment(s): recent TIA General Exam Limitations: no limitations General appearance: alert, in no apparent distress, other (This is a well- developed, well-nourished adult female patient in no acute distress. Vital signs upon presentation are temperature 98.2F, pulse 80, respirations 18, blood pressure 161/91, pulse ox 99% on room air.) Eye exam: Present: normal appearance, PERRL, EOMI. Absent: scleral icterus, conjunctival injection, periorbital swelling ENT exam: Present: normal exam, normal oropharynx, mucous membranes moist Respiratory exam: Present: normal lung sounds bilaterally. Absent: respiratory distress, wheezes, rales, rhonchi, stridor Cardiovascular Exam: Present: regular rate, normal rhythm, normal heart sounds. Absent: systolic murmur, diastolic murmur, rubs, gallop, clicks GI/Abdominal exam: Present: soft, normal bowel sounds. Absent: distended, tenderness, guarding, rebound, rigid Back exam: Present: normal inspection. Absent: CVA tenderness (R), CVA t enderness (L) Neurological exam: Present: alert, oriented X3, CN II-XII intact Psychiatric exam: Present: normal affect, normal mood Skin exam: Present: warm, dry, intact, normal color. Absent: rash Course Vital Signs 03/01/19 20:49 Temperature 98.2 F Pulse Rate 80 Respiratory 18 Rate Blood Pressure 161/91 O2 Sat by Pulse 99 Oximetry Medical Decision Making - Medical Decision Making 53-year-old female patient percents to emergency department today for evaluation of painless hematuria. Patient states she noticed her urine was dark red this morning he has continued throughout the day. Patient denies any history of hematuria. Patient does have a history of kidney stones with no pain. Physical examination is unremarkable. No abdominal tenderness. No flank tenderness or CVA tenderness. Urinalysis was obtained and showed a turbid appearance with 2+ protein, trace ketones, large urine blood, small leukocyte esterase, greater than 182 red blood cells, 14 white blood cells, rare bacteria, occasional mucous, and many urine yeast. I did discuss findings and results with the patient. Urine was sent for culture. She is instructed to follow up with urologist for recheck as soon as possible. Return parameters were discussed in detail. She verbalizes understanding and agrees with this plan. - Lab Data Lab Results 03/01/19 Range/Units 21:32 Urine Color Red Urine Appearance Turbid H (Clear) Urine pH 5.5 (5.0-8.0) Ur Specific Hyrum 1.022 (1.001-1.035) Urine Protein 2+ H (Negative) Urine Glucose (UA) Negative (Negative) Urine Ketones Trace H (Negative) Urine Blood Large H (Negative) Urine Nitrite Negative (Negative) Urine Bilirubin Negative (Negative) Urine Urobilinogen <2.0 (<2.0) mg/dL Ur Leukocyte Esterase Small H (Negative) Urine RBC >182 H (0-5) /hpf Urine WBC 14 H (0-5) /hpf Ur Squamous Epith Cells 2 (0-4) /hpf Urine Bacteria Rare H (None) /hpf Urine Mucus Occasional H (None) /hpf Urine Yeast (Budding) Many H (None) /hpf Disposition Clinical Impression: Hematuria Disposition: HOME SELF-CARE Condition: Good Instructions (If sedation given, give patient instructions): Hematuria (ED) Additional Instructions: Increase fluids. Return immediately if you're unable to urinate, developed fever, or any pain. Follow-up with urologist for recheck as soon as possible. Return to the emergency department for any other new, worsening, or concerning symptoms. Is patient prescribed a controlled substance at d/c from ED?: No Referrals: Wes Hinton DO [Primary Care Provider] - 1-2 days Zion Seymour MD [STAFF PHYSICIAN] - 1-2 days Time of Disposition: 22:04
[2019-03-01 21:43] LABS: Appearance,Urine Turbid (Clear); Bacteria,Urine Rare /hpf; Bilirubin,Urine Negative (Negative); Blood,Urine Large (Negative); Budding Yeast,Urine Many /hpf; Color,Urine Red; Glucose,Urine (UA) Negative (Negative); Ketones,Urine Trace (Negative); Leukocyte Esterase,Urine Small (Negative); Mucus,Urine Occasional /hpf; Nitrite,Urine Negative (Negative); PH, Urine 5.5 (5.0-8.0); Protein,Urine 2+ (Negative); RBC,Urine >182 /hpf (0-5); Specific Gravity,Urine 1.022 (1.001-1.035); Squamous Epithelial Cell,Urine 2 /hpf (0-4); Urobilinogen,Urine <2.0 mg/dL (<2.0); WBC,Urine 14 /hpf (0-5)
== END 2019-03-01 22:35 | disposition home or self-care (01) ==
LOC: EC 20:33
DX: R31.9 Hematuria, unspecified (principal); K21.9 Gastro-esophageal reflux disease without esophagitis; I10 Essential (primary) hypertension; F41.9 Anxiety disorder, unspecified; F32.9 Major depressive disorder, single episode, unspecified; G47.30 Sleep apnea, unspecified; Z99.89 Dependence on other enabling machines and devices; Z85.038 Personal history of other malignant neoplasm of large intestine; Z87.442 Personal history of urinary calculi; Z87.440 Personal history of urinary (tract) infections; Z79.899 Other long term (current) drug therapy; Z88.8 Allergy status to other drugs, medicaments and biological substances; Z88.5 Allergy status to narcotic agent
CPT/HCPCS: 81001; 87086; 99283

== ENCOUNTER → 2019-03-08 | Outpatient (CLI) | payer MEDICARE ==
[2019-03-08 11:49] LABS: HCT 40.7 % (34.0-46.0); HGB 12.9 gm/dL (11.4-16.0); MCH 27.3 pg (25.0-35.0); MCHC 31.8 g/dL (31.0-37.0); MCV 85.9 fL (80.0-100.0); Platelet Count 265 k/uL (150-450); RBC 4.73 m/uL (3.80-5.40); RDW 13.7 % (11.5-15.5)
== END | disposition home or self-care (01) ==
LOC: LABWHC1 11:29
PROVIDERS: ATTEND Psychiatry & Neurology Psychiatry
DX: F33.2 Major depressive disorder, recurrent severe without psychotic features (principal); Z79.899 Other long term (current) drug therapy
CPT/HCPCS: 36415; 85027

== ENCOUNTER → 2019-03-14 | Outpatient (CLI) | payer MEDICARE ==
--- NOTE | 2019-03-14 11:48 | CT ---
EXAMINATION TYPE: CT abdomen pelvis wo con DATE OF EXAM: 03/14/2019 COMPARISON: 04/05/2018 HISTORY: Gross hematuria Examination of the solid and hollow viscera is limited given the lack of contrast. FINDINGS: LUNG BASES: No evidence for nodule. No evidence for infiltrate. LIVER/GB: The gallbladder is unremarkable. No space-occupying hepatic lesion. PANCREAS: No pancreatic mass identified. No inflammatory process seen. SPLEEN: No evidence for splenomegaly. No intrasplenic lesions seen. ADRENALS: No adrenal nodules identified. No evidence for thickening. KIDNEYS: New 5 mm proximal left ureteral calculus just distal to the UPJ. Mild hydronephrosis. Additi onal nonobstructing bilateral renal calculi. No solid or cystic renal mass. Previously noted distal l eft UVJ calculus. BOWEL: Postoperative changes about the stomach Appendix has a normal appearance. No evidence of bowel obstruction. No inflammatory process. Lymph nodes: No evidence for adenopathy greater than 1 cm. Abdominal aorta: Atheromatous changes seen. No evidence for aneurysm. Genital organs: No significant abnormality. Other: No significant abnormality. IMPRESSION: New 5 mm proximal left ureteral calculus just distal to the UPJ. Mild hydronephrosis. Additional nono bstructing bilateral renal calculi.
== END | disposition home or self-care (01) ==
LOC: RADCTMAIN 11:21
PROVIDERS: ATTEND Urology
DX: N20.2 Calculus of kidney with calculus of ureter (principal); N13.30 Unspecified hydronephrosis; Z88.5 Allergy status to narcotic agent; Z88.8 Allergy status to other drugs, medicaments and biological substances
CPT/HCPCS: 74176

== ENCOUNTER → 2019-04-03 | Outpatient (CLI) | payer MEDICARE ==
[2019-04-03 13:15] LABS: Appearance,Urine Clear (Clear); Bilirubin,Urine Negative (Negative); Blood,Urine Negative (Negative); Color,Urine Yellow; Glucose,Urine (UA) Negative (Negative); Ketones,Urine Negative (Negative); Leukocyte Esterase,Urine Moderate (Negative); Mucus,Urine Rare /hpf; Nitrite,Urine Negative (Negative); PH, Urine 5.5 (5.0-8.0); Protein,Urine Negative (Negative); RBC,Urine 2 /hpf (0-5); Specific Gravity,Urine 1.022 (1.001-1.035); Squamous Epithelial Cell,Urine <1 /hpf (0-4); Urobilinogen,Urine <2.0 mg/dL (<2.0); WBC,Urine 6 /hpf (0-5)
== END | disposition home or self-care (01) ==
LOC: LABWHC1 11:52
PROVIDERS: ATTEND Psychiatry & Neurology Psychiatry
DX: N20.0 Calculus of kidney (principal)
CPT/HCPCS: 36415; 81001; 85652; 86140

== ENCOUNTER → 2019-04-16 | Outpatient (CLI) | payer MEDICARE ==
[2019-04-16 15:37] LABS: HCT 40.7 % (34.0-46.0); HGB 13.2 gm/dL (11.4-16.0); MCH 28.2 pg (25.0-35.0); MCHC 32.3 g/dL (31.0-37.0); Platelet Count 224 k/uL (150-450); RBC 4.68 m/uL (3.80-5.40); RDW 13.3 % (11.5-15.5); WBC 5.3 k/uL (3.8-10.6)
[2019-04-16 15:41] LABS: Appearance,Urine Clear (Clear); Bilirubin,Urine Negative (Negative); Blood,Urine Negative (Negative); Color,Urine Yellow; Glucose,Urine (UA) Negative (Negative); Ketones,Urine Negative (Negative); Leukocyte Esterase,Urine Trace (Negative); Mucus,Urine Rare /hpf; Nitrite,Urine Negative (Negative); PH, Urine 5.5 (5.0-8.0); Protein,Urine Negative (Negative); RBC,Urine 5 /hpf (0-5); Specific Gravity,Urine 1.025 (1.001-1.035); Urobilinogen,Urine <2.0 mg/dL (<2.0); WBC,Urine 5 /hpf (0-5)
[2019-04-16 20:50] LABS: Urine Alcohol Negative (Negative); Urine Barbiturate Negative (Negative); Urine Cocaine Negative (Negative); Urine Methadone Negative (Negative); Urine Opiates Negative (Negative); Urine Phencyclidine Negative (Negative)
[2019-04-17 00:59] LABS: African American GFR (CKD) 65.5 (60.0-200.0); Albumin/Globulin Ratio 2.67 (1.60-3.17); Anion Gap 6.4 mmol/L (4.00-12.00); BUN/Creat Ratio 13.64 Ratio (12.00-20.00); Calcium 9.2 mg/dL (8.7-10.3); Carbon Dioxide 29.6 mmol/L (21.6-31.8); Globulin 1.5 g/dL (1.6-3.3); Potassium 4.3 mmol/L (3.5-5.5); Total Bilirubin 0.3 mg/dL (0.3-1.2); Total Protein 5.5 g/dL (6.2-8.2)
== END | disposition home or self-care (01) ==
LOC: LABWHC1 15:05
PROVIDERS: ATTEND Psychiatry & Neurology Neurology
DX: Z51.81 Encounter for therapeutic drug level monitoring (principal); Z79.899 Other long term (current) drug therapy
CPT/HCPCS: 36415; 80053; 80306; 81001; 85027

== ENCOUNTER → 2019-05-09 | Outpatient (CLI) | payer MEDICARE ==
[2019-05-09 18:37] LABS: African American GFR (CKD) 96.2 (60.0-200.0); BUN/Creat Ratio 17.5 Ratio (12.00-20.00); Calcium 9.1 mg/dL (8.7-10.3)
== END | disposition home or self-care (01) ==
LOC: LABWHC1 13:11
PROVIDERS: ATTEND Family Medicine
DX: R94.4 Abnormal results of kidney function studies (principal)
CPT/HCPCS: 36415; 80048

== ENCOUNTER → 2019-06-04 | Outpatient (CLI) | payer MEDICARE ==
[2019-06-04 13:44] VITALS: BP 141/76; PULSE 66; TEMP 98.4; BMI 23.3
--- NOTE | 2019-06-04 14:18 | P.PN ---
Subjective Progress Note Date: 06/04/19 DATE OF SERVICE: 06/04/19 She comes in 2 years out from his gastric bypass. She has had UTI. She has kept her weight down. She has kidney stones. She has troubles with beef and meats. She can do chicken. She has no troubles with fatty foods. She can eat salads and vegetables. She is not constipated. No GERD. She is not taking Omeprazole. ABDOMEN: Pannus is present. ASSESSMENT: 1. Panniculitis PLAN: 1. Nystatin powder for panniculitis. 2. Body contouring options 3. Follow up in 1 year 4. Will get urine analysis and culture. DATE OF SERVICE: 05/15/2018 CHIEF COMPLAINT: Follow up gastric bypass. HISTORY OF PRESENT ILLNESS: Ana Lilia Hayes is a 52-year-old female who is status post gastric bypass 05/11/2017. At her height of 5 feet 4-1/4 inches, her ideal body weight is 144 pounds. Her highest weight was 255 pounds. Body mass index was 43.5. Today she comes in 143 pounds from 151 pounds, 4 months ago. She has lost 8 pounds in 4 months. She has lost 112 pounds lifetime. Body mass index down 24.4. Percent excess weight loss is 101 %. She has lost over 100+ pounds. She has no acute troubles with swallowing except with meats and very infrequently. She reports panniculitis and itching worse in the summer. She reports more troubles with her breast. PHYSICAL EXAM: VITAL SIGNS: 5 feet 4.25 inches frame. Weight 143 pounds. Her body mass index 24.4 Vital Signs Temp 98.2 F 05/15/18 14:25 Pulse 74 05/15/18 14:25 Resp 15 05/15/18 14:25 BP 143/87 05/15/18 14:25 Pulse Ox ABDOMEN: Soft, nontender, nondistended. No palpable incisional hernias. Mild panniculitis. Skin elastosis GENERAL: Well-developed female in no acute distress. HEENT: No sclerae icterus. Extraocular movements grossly intact. Moist buccal mucosa. NECK: Supple without lymphadenopathy. CHEST: Nonlabored respirations. Equal bilateral excursions. CARDIOVASCULAR: Regular rate and rhythm. MUSCULOSKELETAL: No clubbing, cyanosis, or edema. NEURO: No focal or lateralizing signs. Cranial nerves II through XII grossly within normal limits. PSYCH: Appropriate affect. Alert and oriented to person, place and time. SKIN: Well-perfused. Good skin turgor. ASSESSMENT: 1. Morbid obesity due to excess caloric intake. 2. Body mass index reduced from 43.5 down to 24.4. 3. Osteoarthritis of the bilateral knees, secondary to morbid obesity, improved. 4. Osteoarthritis of the bilateral feet, secondary to morbid obesity, improved. 5. Osteoarthritis of the lower back, secondary to morbid obesity, improved. 6. Obstructive sleep apnea, resolved. 7. Pseudotumor cerebri, improved. 8. Gastroesophageal reflux disease, resolved. 9. Hypertensive heart disease. 10. Panniculitis. 11. History of binge eating, resolved 12. Status post gastric bypass. 13. Intermittent heart palpitations, resolved 14. Hyperthyroidism. 15. Dysphagia PLAN: 1. Recommend Nystatin has been prescribed for panniculitis. 2. Recommend bariatric labs 3. Follow up in 1 year. Objective - Vital Signs Vital signs: Vital Signs Temp 98.4 F 06/04/19 13:38 Pulse 66 06/04/19 13:38 Resp BP 141/76 06/04/19 13:38 Pulse Ox Intake & Output 06/03/19 06/04/19 06/04/19 18:59 06:59 18:59 Weight 62.142 kg
[2019-06-04 15:10] LABS: Anisocytosis Slight; MCHC 31.7 g/dL (31.0-37.0); MCV 85.3 fL (80.0-100.0); Mean Platelet Volume 8.3; Platelet Count 244 k/uL (150-450); RBC 4.81 m/uL (3.80-5.40); RDW 16.1 % (11.5-15.5); WBC 7.6 k/uL (3.8-10.6)
[2019-06-04 15:18] LABS: INR 0.9 (<1.2); Partial Thromboplastin Time 23.7 sec (22.0-30.0)
[2019-06-04 15:30] LABS: Appearance,Urine Clear (Clear); Bacteria,Urine Rare /hpf; Bilirubin,Urine Negative (Negative); Blood,Urine Small (Negative); Color,Urine Yellow; Glucose,Urine (UA) Negative (Negative); Ketones,Urine Negative (Negative); Leukocyte Esterase,Urine Negative (Negative); Mucus,Urine Rare /hpf; Nitrite,Urine Negative (Negative); PH, Urine 5.5 (5.0-8.0); Protein,Urine Negative (Negative); RBC,Urine 113 /hpf (0-5); Urobilinogen,Urine <2.0 mg/dL (<2.0); WBC,Urine 2 /hpf (0-5)
[2019-06-04 21:29] LABS: African American GFR (CKD) 96.2 (60.0-200.0); Albumin 3.9 g/dL (3.80-4.90); Albumin/Globulin Ratio 2.6 (1.60-3.17); Anion Gap 8.8 mmol/L (4.00-12.00); BUN/Creat Ratio 21.25 Ratio (12.00-20.00); Carbon Dioxide 28.2 mmol/L (21.6-31.8); Chol/HDL Ratio 1.99; Globulin 1.5 g/dL (1.6-3.3); LDL Cholesterol,Calculated 65.2 mg/dL (0.0-131.0); Magnesium 1.7 mg/dL (1.5-2.4); Phosphorus 3.6 mg/dL (2.4-5.1); Potassium 4.7 mmol/L (3.5-5.5); Total Bilirubin 0.3 mg/dL (0.3-1.2); Total Protein 5.4 g/dL (6.2-8.2); VLDL Calculation 11.8 mg/dL (5.00-40.00)
[2019-06-04 21:35] LABS: Hemoglobin A1C 5.7 % (4.0-6.0)
[2019-06-04 22:19] LABS: Iron Saturation 14.24 (12.00-45.00)
[2019-06-04 22:28] LABS: Ferritin 63.8 ng/mL (10.0-291.0); Vitamin D 25 Hydroxy 60.2 ng/mL (30.0-100.0)
[2019-06-04 22:38] LABS: Folate, Serum 14.2 ng/mL
[2019-06-05 12:11] LABS: Zinc, Serum 69 ug/dL (60-130)
[2019-06-06 06:51] LABS: Vitamin A 55 ug/dL (38-106)
[2019-06-06 07:52] LABS: Vit B1(Thiamine) 136 ug/L (38-122)
== END | disposition home or self-care (01) ==
LOC: BARWHC3 12:56
PROVIDERS: ATTEND Surgery Plastic and Reconstructive Surgery
DX: Z48.815 Encounter for surgical aftercare following surgery on the digestive system (principal); M79.3 Panniculitis, unspecified; E66.01 Morbid (severe) obesity due to excess calories; M17.0 Bilateral primary osteoarthritis of knee; M19.072 Primary osteoarthritis, left ankle and foot; M19.071 Primary osteoarthritis, right ankle and foot; M47.816 Spondylosis without myelopathy or radiculopathy, lumbar region; G93.2 Benign intracranial hypertension; I11.9 Hypertensive heart disease without heart failure; E05.90 Thyrotoxicosis, unspecified without thyrotoxic crisis or storm; R13.10 Dysphagia, unspecified; E21.1 Secondary hyperparathyroidism, not elsewhere classified; E89.1 Postprocedural hypoinsulinemia; D50.9 Iron deficiency anemia, unspecified; K90.9 Intestinal malabsorption, unspecified; E55.9 Vitamin D deficiency, unspecified; K74.1 Hepatic sclerosis; N19 Unspecified kidney failure; K50.90 Crohn's disease, unspecified, without complications; R82.90 Unspecified abnormal findings in urine; Z68.24 Body mass index [BMI] 24.0-24.9, adult; Z98.84 Bariatric surgery status
CPT/HCPCS: 84255; 84134; 84425; 80061; 80053; 82607; 82728; 82525; 82746; 83540; 83550; 83735; 84100; 84443; 84590; 84630; 85027; 85610; 85730; 81001; 82306; 83970; 87086; 83036; G0463; 99211

== ENCOUNTER 2019-06-29 23:47 | Emergency (ER) | payer MEDICARE ==
[2019-06-29 23:54] VITALS: PULSE 75
[2019-06-30 00:40] LABS: African American GFR (CKD) >90 (>60 ml/min/1.73 sqM); Anion Gap 5 mmol/L; Blood Urea Nitrogen 17 mg/dL (7-17); Calcium 9.5 mg/dL (8.4-10.2); Carbon Dioxide 28 mmol/L (22-30); Chloride 110 mmol/L (98-107); Glucose 62 mg/dL (74-99); Potassium 4.2 mmol/L (3.5-5.1); Sodium 143 mmol/L (137-145)
--- NOTE | 2019-06-30 01:01 | US ---
EXAMINATION TYPE: US venous doppler duplex LE LT DATE OF EXAM: 06/30/2019 12:48 AM COMPARISON: NONE CLINICAL HISTORY: hx DVT, posterior calf pain. SIDE PERFORMED: Left TECHNIQUE: The lower extremity deep venous system is examined utilizing real time linear array sonog hesham with graded compression, doppler sonography and color-flow sonography. VESSELS IMAGED: External Iliac Vein (EIV) Common Femoral Vein Deep Femoral Vein Greater Saphenous Vein * Femoral Vein Popliteal Vein Small Saphenous Vein * Proximal Calf Veins (* superficial vessels) Left Leg: Negative for DVT IMPRESSION: No evidence of deep venous thrombosis in the left leg.
--- NOTE | 2019-06-30 01:03 | ED ---
Extremity Problem HPI - General Chief complaint: Extremity Problem,Nontraumatic Stated complaint: L Leg Swelling/Pain Time Seen by Provider: 06/29/19 23:56 Source: patient Mode of arrival: ambulatory Limitations: no limitations - History of Present Illness Initial comments: 53-year-old female with past medical history of chronic head pain, previous DVT after 22 day hospitalization presents emergency department for evaluation of cramping of the left calf and thigh. Patient states to 3 days ago patient cramping of the posterior left thigh. She states today she felt cramping sensation of the left calf. Patient is concerned she had DVT as she had one 8 years prior after a 22 day hospitalization. Patient denies any significant swelling redness or palpable masses. Patient denies chest pain sob, recent surgeries, history of cancer, hormone use. Patient denies states that she was concerned with the sensation persisted today and presented to the ER to r/o DVT. Remaining ROS (-). - Related Data Home Medications Medication Instructions Recorded Confirmed Fluticasone Propionate [Flonase 2 spray EA NOSTRIL BID PRN 02/23/16 06/04/19 Allergy Relief] Ondansetron HCl [Zofran] 8 mg PO Q8H PRN 07/20/16 06/04/19 Metoprolol Tartrate [Lopressor] 12.5 mg PO BID 05/11/17 06/04/19 ALPRAZolam [Xanax] 0.25 mg PO BID 08/12/17 06/04/19 Bariactiv Calc/D3/Mag 1 tab PO DAILY 08/12/17 06/04/19 Bariactiv Iron+Vitc 90mg/54mg 1 tab PO HS 08/12/17 06/04/19 Bariactiv Multivitamin 1 tab PO DAILY 08/12/17 06/04/19 Biotin 5 mg PO DAILY 08/12/17 06/04/19 CHLORPHEN-HYDROcod 8-10mg/5ml 5 ml PO Q12H PRN 08/12/17 06/04/19 [Tussionex] Cholecalciferol [Vitamin D3 (25 5,000 unit PO DAILY 08/12/17 06/04/19 Mcg = 1000 Iu)] Gabapentin 1,600 mg PO BID 08/12/17 06/04/19 Vitamin A Acetate [Vitamin A] 10,000 unit SL DAILY 08/12/17 06/04/19 Melatonin 10 mg PO HS PRN 04/05/18 06/04/19 Omeprazole 40 mg PO DAILY PRN 04/05/18 06/04/19 Cyanocobalamin (Vitamin B-12) 5,000 mcg PO DAILY 09/05/18 06/04/19 [Vitamin B-12] Vortioxetine Hydrobromide 20 mg PO DAILY 09/05/18 06/04/19 [Trintellix] Previous Rx's Medication Instructions Recorded Nystatin 100,000 Unit/gm Powd 1 applic TOPICAL BID #60 powder 06/04/19 [Mycostatin Powder] Allergies Allergy/AdvReac Type Severity Reaction Status Date / Time lamotrigine [From Lamictal] Allergy Rash/Hives Verified 06/29/19 23:54 oxycodone HCl [From Percodan] AdvReac Itching Verified 06/29/19 23:54 oxycodone terephthalate AdvReac Itching Verified 06/29/19 23:54 [From Percodan] propoxyphene napsylate AdvReac Itching Verified 06/29/19 23:54 [From Darvocet-N] Review of Systems ROS Statement: Those systems with pertinent positive or pertinent negative responses have been documented in the HPI. ROS Other: All systems not noted in ROS Statement are negative. Past Medical History Past Medical History: Deep Vein Thrombosis (DVT), GERD/Reflux, Hypertension, Neurologic Disorder, Sleep Apnea/CPAP/BIPAP Additional Past Medical History / Comment(s): chronic headache-gets Botox injections for pain, used to use CPAP but not since weight loss, recent sleep study, DVT 2012, family hx. colon cancer History of Any Multi-Drug Resistant Organisms: None Reported Past Surgical History: Appendectomy, Bariatric Surgery, Orthopedic Surgery, Tonsillectomy Additional Past Surgical History / Comment(s): sinus surgery, papito knee surgery, papito carpal tunnel, EGD gastric bypass 05-11-17 Past Anesthesia/Blood Transfusion Reactions: Postoperative Nausea & Vomiting (PONV) Past Psychological History: Anxiety, Depression Smoking Status: Never smoker Past Alcohol Use History: None Reported Past Drug Use History: None Reported - Past Family History Mother Additional Family Medical History / Comment(s): sjogrens Sister(s) Family Medical History: Blood Disorder, Deep Vein Thrombosis (DVT) Additional Family Medical History / Comment(s): factor V Father Family Medical History: Hypertension Brother(s) Family Medical History: CVA/TIA, Hypertension Additional Family Medical History / Comment(s): recent TIA General Exam - General Exam Comments Initial Comments: General: The patient is awake and alert, in no distress, and does not appear acutely ill. Eye: Pupils are equal, round and reactive to light, extra-ocular movements are intact. No nystagmus. There is normal conjunctiva bilaterally. No signs of icterus. Ears, nose, mouth and throat: There are moist mucous membranes and no oral lesions. Neck: The neck is supple, there is no tenderness or JVD. Cardiovascular: There is a regular rate and rhythm. No murmur, rub or gallop is appreciated. Respiratory: Lungs are clear to auscultation, respirations are non-labored, breath sounds are equal. No wheezes, stridor, rales, or rhonchi. Musculoskeletal: Normal ROM, no tenderness. Strength 5/5. Sensation intact. Dp pulses equal bilaterally 2+. Neurological: A&O x 3. CN II-XII intact, There are no obvious motor or sensory deficits. Coordination appears grossly intact. Speech is normal. Skin: Skin is warm and dry and no rashes or lesions are noted. Negative Homans. No calf swelling. No masses or palpable cords. No erythema of the lower extremities. Mild tenderness to palpation of the left posterior calf. Psychiatric: Cooperative, appropriate mood & affect, normal judgment. Limitations: no limitations Course Vital Signs 06/29/19 06/30/19 23:51 01:01 Temperature 97.8 F 98 F Pulse Rate 75 75 Respiratory 16 18 Rate Blood Pressure 143/89 140/92 O2 Sat by Pulse 99 100 Oximetry Medical Decision Making - Medical Decision Making 53-year-old female presenting for evaluation of DVT rule out. History DVT 8 years prior after immobilization due to 22 day admission. Patient no on anticoagulation therapy at this time. Physical examination not consistent with pathology at this time. US (-) for DVT. Electrolytes stable. Patient has no other complaints. Denies trauma. Patient will be discharged with outpatient PCP f/u after discussing case with Dr. Lee - Lab Data Result diagrams: 06/30/19 00:11 Lab Results 06/30/19 Range/Units 00:11 Sodium 143 (137-145) mmol/L Potassium 4.2 (3.5-5.1) mmol/L Chloride 110 H (98-107) mmol/L Carbon Dioxide 28 (22-30) mmol/L Anion Gap 5 mmol/L BUN 17 (7-17) mg/dL Creatinine 0.70 (0.52-1.04) mg/dL Est GFR (CKD-EPI)AfAm >90 (>60 ml/min/1.73 sqM) Est GFR (CKD-EPI)NonAf >90 (>60 ml/min/1.73 sqM) Glucose 62 L (74-99) mg/dL Calcium 9.5 (8.4-10.2) mg/dL Disposition Clinical Impression: Leg cramping Disposition: HOME SELF-CARE Condition: Good Instructions (If sedation given, give patient instructions): Leg Cramps (ED) Additional Instructions: Please use medication as discussed. Please follow-up with family doctor in the next 2 days, repeat US in 1 week if symptoms persist. Please return to emergency room if the symptoms increase or worsen or for any other concerns. Is patient prescribed a controlled substance at d/c from ED?: No Referrals: Wes Hinton DO [Primary Care Provider] - 1-2 days Time of Disposition: 01:03
[2019-06-30 01:07] VITALS: BP 140/92; RESP 18; TEMP 98
== END 2019-06-30 01:47 | disposition home or self-care (01) ==
LOC: EC 23:47
DX: R25.2 Cramp and spasm (principal); M79.9 Soft tissue disorder, unspecified; M79.662 Pain in left lower leg; I10 Essential (primary) hypertension; F41.9 Anxiety disorder, unspecified; F32.9 Major depressive disorder, single episode, unspecified; K21.9 Gastro-esophageal reflux disease without esophagitis; G47.30 Sleep apnea, unspecified; Z79.899 Other long term (current) drug therapy; Z88.8 Allergy status to other drugs, medicaments and biological substances; Z88.5 Allergy status to narcotic agent; Z98.84 Bariatric surgery status; Z86.718 Personal history of other venous thrombosis and embolism; Z99.89 Dependence on other enabling machines and devices
CPT/HCPCS: 36415; 80048; 99284

== ENCOUNTER → 2019-07-10 | Outpatient (CLI) | payer MEDICARE ==
--- NOTE | 2019-07-10 11:55 | XR ---
EXAMINATION TYPE: XR KUB DATE OF EXAM: 07/10/2019 COMPARISON: 03/04/2019 HISTORY: Pain TECHNIQUE: One view abdominal series FINDINGS: Postop changes are noted in the left hemiabdomen. There is no pneumoperitoneum or bowel obstruction. There is suspicion for a punctate left-sided renal calculi measuring 5 mm. Bowel gas may obscure detail. Lung bases are clear. Calcification superimposed over the right 11th ri b also noted measuring 6 mm. Hypertrophic changes of the acetabulum can be associated with femoral ac etabular impingement. IMPRESSION: 1. Exam severely limited due to extensive retained fecal debris. However, still suspect previously no radha calcifications bilaterally with the largest seen on the right measuring approximately 6 mm
== END | disposition home or self-care (01) ==
LOC: LABWHC1 11:15
PROVIDERS: ATTEND Urology
DX: K59.09 Other constipation (principal)
CPT/HCPCS: 74018

== ENCOUNTER → 2019-07-26 | Outpatient (CLI) | payer MEDICARE ==
--- NOTE | 2019-07-27 13:19 | CT ---
EXAMINATION TYPE: CT abdomen wo/w con DATE OF EXAM: 07/26/2019 HISTORY: Pt hx renal calculi, frequent urination, reoccur ing infections, stomach pain CT DLP: 528.20mGycm Automated Exposure Control for Dose Reduction was Utilized. CONTRAST: CT scan of the abdomen is performed without and with IV Contrast, patient injected with 100 mL of Iso arnulfo 300. COMPARISON: 03/14/2019 CT FINDINGS: LUNG BASES: No significant abnormality is appreciated. Trace pericardial effusion is seen in the infe rior mediastinum. LIVER/GB: There is probable focal fatty infiltration that is wedge-shaped new the fissure for the fal ciform ligament. Incidentally portal vein appears engorged. Gallbladder is elongated measuring 9.2 cm narrowing hydropic size. PANCREAS: No significant abnormality is seen. SPLEEN: Solitary calcification lateral to the spleen appears benign. ADRENALS: No significant abnormality is seen. KIDNEYS: There are multiple bilateral renal calculi. On the left there are 2 lower pole 1 to 2 mm bar jacek imperceptible calculi and 3 mid pole calculi measuring 5 mm, 2 mm and 3 mm. On the right there ar e 2 inferior pole calculi measuring 2 mm and 4 mm and a superior pole calculus measuring 3 mm. No hyd ronephrosis of either kidney. The previously seen left proximal ureteral calculus is no longer presen t in the proximal ureter. BOWEL: Postsurgical change of a partial gastrectomy is seen. Slight thickening of the distal esophagu s. Prominent loops of small bowel in the left abdomen are upper limits of normal. These are nonenlarg ed. No obstruction. LYMPH NODES: No greater than 1cm abdominal or pelvic lymph nodes are appreciated. OSSEOUS STRUCTURES: No significant abnormality is seen. IMPRESSION: 1. Multiple bilateral nonobstructing renal calculi as detailed above. The previously seen proximal le ft ureteral calculi is no longer visualized. No hydronephrosis of either kidney. 2. Circumferential thickening of the distal esophagus, most commonly on the basis of esophagitis. Pos tsurgical changes from prior partial gastrectomy. 3. Trace pericardial effusion.
== END | disposition home or self-care (01) ==
LOC: RADCTMAIN 11:04
PROVIDERS: ATTEND Urology
DX: N20.0 Calculus of kidney (principal); K22.8 Other specified diseases of esophagus; Z90.3 Acquired absence of stomach [part of]; Z88.2 Allergy status to sulfonamides; Z88.1 Allergy status to other antibiotic agents; Z88.8 Allergy status to other drugs, medicaments and biological substances
CPT/HCPCS: 74170; Q9967 ×2

== ENCOUNTER → 2019-07-29 | Outpatient (CLI) | payer MEDICARE ==
[2019-07-29 15:43] LABS: Luteinizing Hormone 52.2 mIU/mL
[2019-07-29 15:44] LABS: Follicle Stimulating Hormone 96.4 mIU/mL
[2019-07-29 15:54] LABS: Estradiol <11.8 pg/mL
[2019-07-29 18:20] LABS: HIV 1 AB Non-Reactive (Non-Reactive); HIV 2 AB Non-Reactive (Non-Reactive); HIV AB P24 Non-Reactive (Non-Reactive); HIV P24 AG Non-Reactive (Non-Reactive)
== END | disposition home or self-care (01) ==
LOC: LABWHC1 10:20
PROVIDERS: ATTEND Obstetrics & Gynecology
DX: N91.2 Amenorrhea, unspecified (principal); Z11.3 Encounter for screening for infections with a predominantly sexual mode of transmission
CPT/HCPCS: 36415; 82670; 83001; 83002; 86780; 87390

== ENCOUNTER → 2019-08-11 | Outpatient (CLI) | payer MEDICARE ==
--- NOTE | 2019-08-12 13:05 | MM ---
Reason for exam: screening (asymptomatic). Last mammogram was performed 1 year and 1 month ago. History: Patient is postmenopausal and is nulliparous. Family history of breast cancer in maternal grandmother at age 40. Physical Findings: A clinical breast exam by your physician is recommended on an annual basis and results should be correlated with mammographic findings. MG 3D Screening Mammo W/Cad Bilateral CC and MLO view(s) were taken. Prior study comparison: July 17, 2018, bilateral MG 3d screening mammo w/cad. October 30, 2013, bilateral digital screening mammo w/CAD. The breast tissue is heterogeneously dense. This may lower the sensitivity of mammography. There are benign appearing round calcifications bilaterally. There is no discrete abnormality. ASSESSMENT: Benign, BI-RAD 2 RECOMMENDATION: Routine screening mammogram of both breasts in 1 year.
== END | disposition home or self-care (01) ==
LOC: RADMAMWWP 14:04
PROVIDERS: ATTEND Obstetrics & Gynecology
DX: Z12.31 Encounter for screening mammogram for malignant neoplasm of breast (principal)
CPT/HCPCS: 77063; 77067

== ENCOUNTER 2019-08-25 12:01 | Day surgery (SDC) | payer MEDICARE ==
[2019-08-21 15:17] VITALS: BMI 24.9
--- NOTE | 2019-08-25 07:27 | P.GSHP ---
History of Present Illness H&P Date: 08/25/19 CHIEF COMPLAINT: GERD HISTORY OF PRESENT ILLNESS: The patient is a 54-year-old female who presents reports gastroesophageal reflux disease. Upper endoscopy was offered for further evaluation and management. PAST MEDICAL HISTORY: Please see list. PAST SURGICAL HISTORY: Please see list. MEDICATIONS: Please see list. ALLERGIES: Please see list. SOCIAL HISTORY: No illicit drug use FAMILY HISTORY: No reports of Crohn disease or ulcerative colitis. REVIEW OF ORGAN SYSTEMS: CONSTITUTIONAL: No reports of fevers or chills. GI: Denies any blood in stools or constipation. PHYSICAL EXAM: VITAL SIGNS: Stable GENERAL: Well-developed and pleasant in no acute distress. HEENT: No scleral icterus. Extraocular movements grossly intact. Moist buccal mucosa. NECK: Supple without lymphadenopathy. CHEST: Unlabored respirations. Equal bilateral excursions. CARDIOVASCULAR: Regular rate and rhythm. Distal 2+ pulses. ABDOMEN: Soft, nondistended. MUSCULOSKELETAL: No clubbing, cyanosis, or edema. ASSESSMENT: 1. Gastroesophageal reflux disease PLAN: 1. Recommend proceeding with an upper endoscopy Past Medical History Past Medical History: Deep Vein Thrombosis (DVT), GERD/Reflux, Hypertension, Neurologic Disorder, Sleep Apnea/CPAP/BIPAP Additional Past Medical History / Comment(s): Chronic headache -gets Botox injections for pain, Sleep Apnea resolved since weight loss, Acid reflux reolved, hx DVT 2012, "Very mild lung scarring, had severe cough X12 yrs", ? Fibromyalgia, not diagnosed." History of Any Multi-Drug Resistant Organisms: None Reported Past Surgical History: Appendectomy, Bariatric Surgery, Orthopedic Surgery, Tonsillectomy Additional Past Surgical History / Comment(s): Sinus surgery, bilateral knee surgery, bilateral carpal tunnel surgery, EGD X2, Gastric Bypass 05-11-17. Past Anesthesia/Blood Transfusion Reactions: Postoperative Nausea & Vomiting (PONV) Past Psychological History: Anxiety, Depression Smoking Status: Never smoker Past Alcohol Use History: Occasional Past Drug Use History: None Reported - Past Family History Mother Family Medical History: Cancer Additional Family Medical History / Comment(s): Sjogrens, lung cancer. Sister(s) Family Medical History: Blood Disorder, Deep Vein Thrombosis (DVT) Additional Family Medical History / Comment(s): Factor V. Father Family Medical History: Hypertension Brother(s) Family Medical History: CVA/TIA, Hypertension Additional Family Medical History / Comment(s): recent TIA Medications and Allergies Home Medications Medication Instructions Recorded Confirmed Type Fluticasone Propionate [Flonase 2 spray EA NOSTRIL BID PRN 02/23/16 08/21/19 History Allergy Relief] Ondansetron HCl [Zofran] 8 mg PO Q8H PRN 07/20/16 08/21/19 History Metoprolol Tartrate [Lopressor] 25 mg PO BID 05/11/17 08/21/19 History ALPRAZolam [Xanax] 0.25 mg PO BID 08/12/17 08/21/19 History CHLORPHEN-HYDROcod 8-10mg/5ml 5 ml PO Q12H PRN 08/12/17 08/21/19 History [Tussionex] Cholecalciferol [Vitamin D3 (25 5,000 unit PO DAILY 08/12/17 08/21/19 History Mcg = 1000 Iu)] Gabapentin 1,600 mg PO BID 08/12/17 08/21/19 History Vitamin A Acetate [Vitamin A] 10,000 unit SL DAILY 08/12/17 08/21/19 History Melatonin 10 mg PO HS PRN 04/05/18 08/21/19 History Cyanocobalamin (Vitamin B-12) 5,000 mcg PO DAILY 09/05/18 08/21/19 History [Vitamin B-12] Alendronate Sodium [Fosamax] 70 mg PO Q7D 08/21/19 08/21/19 History Biotin 10,000 mcg PO DAILY 08/21/19 08/21/19 History Botox 200 mg SQ Q90D 08/21/19 08/21/19 History Calcium Carbonate [Calcium] 600 mg PO QAM 08/21/19 08/21/19 History Calcium Carbonate [Calcium] 900 mg PO HS 08/21/19 08/21/19 History Cyclobenzaprine [Flexeril] 10 mg PO HS 08/21/19 08/21/19 History Desvenlafaxine Succinate [Pristiq] 50 mg PO HS 08/21/19 08/21/19 History Ferrous Sulfate [Iron] 325 mg PO DAILY 08/21/19 08/21/19 History Multivitamins, Thera [Multivitamin 1 tab PO DAILY 08/21/19 08/21/19 History (formulary)] Omeprazole 20 mg PO DAILY PRN 08/21/19 08/21/19 History Sertraline HCl [Zoloft] 100 mg PO QAM 08/21/19 08/21/19 History Thiamine HCl [Vitamin B-1] 100 mg PO DAILY 08/21/19 08/21/19 History Allergies Allergy/AdvReac Type Severity Reaction Status Date / Time lamotrigine [From Lamictal] Allergy Rash/Hives Verified 08/21/19 14:52 oxycodone HCl [From Percodan] AdvReac Itching Verified 08/21/19 14:52 oxycodone terephthalate AdvReac Itching Verified 08/21/19 14:52 [From Percodan] propoxyphene napsylate AdvReac Itching Verified 08/21/19 14:52 [From Darvocet-N]
[2019-08-25 12:36] VITALS: TEMP 98
[2019-08-25] MEDS ORDERED: PROPOFOL 10 MG/ML 20 ML VIAL IV ONE (12:39)
[2019-08-25] MEDS ORDERED: LIDOCAINE 1% INJ 10MG/ML (20 ML MDV) ONE (12:39)
--- NOTE | 2019-08-25 13:01 | P.PCN ---
Date of Procedure: 08/25/19 Description of Procedure: PREOPERATIVE DIAGNOSES: 1. Epigastric abdominal pain. 2. Dysphagia POSTOPERATIVE DIAGNOSES: 1. Epigastric abdominal pain. 2. Dysphagia PROCEDURE PERFORMED: Esophagogastrojejunoscopy with cold forceps biopsy SURGEON: Jeni Lentz MD ANESTHESIA: MAC. INDICATIONS: The patient is a 54-year-old female who presents with dysphagia including past history of gastroesophageal reflux disease. Upper endoscopy was offered for further evaluation and management. DESCRIPTION: Patient was brought to the endoscopy suite and laid in the left lateral decubitus position. After adequate IV sedation, a bite block was placed. An Olympus gastroscope was passed along the posterior oropharynx down to the distal esophagus where the squamocolumnar junction was found at approximately 38 cm from the incisors. moderate white plaque was found highly suspicious for candidiasis esophagitis. Cold forceps biopsies were obtained. Active erosive esophagitis of the GE junction was also identified and biopsies obtained. No evidence of active gastrojejunal ulcerations were encountered. The GI tract was desufflated. The patient tolerated the procedure well. FINDINGS: 1. Candidiasis esophagitis with biopsies obtained pending final pathology 2. Acute erosive esophagitis with gastric esophageal ulceration 3. No acute gastrojejunal ulceration. PLAN: 1. upper endoscopy as needed Plan - Discharge Summary Discharge Rx Participant: Yes New Discharge Prescriptions: No Action Fluticasone Propionate [Flonase Allergy Relief] 2 spray EA NOSTRIL BID PRN PRN Reason: Congestion Ondansetron HCl [Zofran] 8 mg PO Q8H PRN PRN Reason: Nausea Metoprolol Tartrate [Lopressor] 25 mg PO BID Vitamin A Acetate [Vitamin A] 10,000 unit SL DAILY Cholecalciferol [Vitamin D3 (25 Mcg = 1000 Iu)] 5,000 unit PO DAILY Gabapentin 1,600 mg PO BID CHLORPHEN-HYDROcod 8-10mg/5ml [Tussionex] 5 ml PO Q12H PRN PRN Reason: Cough ALPRAZolam [Xanax] 0.25 mg PO BID Melatonin 10 mg PO HS PRN PRN Reason: Insomnia Cyanocobalamin (Vitamin B-12) [Vitamin B-12] 5,000 mcg PO DAILY Multivitamins, Thera [Multivitamin (formulary)] 1 tab PO DAILY Cyclobenzaprine [Flexeril] 10 mg PO HS Sertraline HCl [Zoloft] 100 mg PO QAM Thiamine HCl [Vitamin B-1] 100 mg PO DAILY Omeprazole 20 mg PO DAILY PRN PRN Reason: Indigestion Ferrous Sulfate [Iron] 325 mg PO DAILY Desvenlafaxine Succinate [Pristiq] 50 mg PO HS Calcium Carbonate [Calcium] 600 mg PO QAM Calcium Carbonate [Calcium] 900 mg PO HS Botox 200 mg SQ Q90D Biotin 10,000 mcg PO DAILY Alendronate Sodium [Fosamax] 70 mg PO Q7D Discharge Medication List Fluticasone Propionate [Flonase Allergy Relief] 2 spray EA NOSTRIL BID PRN 02/23/16 [History] Ondansetron HCl [Zofran] 8 mg PO Q8H PRN 07/20/16 [History] Metoprolol Tartrate [Lopressor] 25 mg PO BID 05/11/17 [History] ALPRAZolam [Xanax] 0.25 mg PO BID 08/12/17 [History] CHLORPHEN-HYDROcod 8-10mg/5ml [Tussionex] 5 ml PO Q12H PRN 08/12/17 [History] Cholecalciferol [Vitamin D3 (25 Mcg = 1000 Iu)] 5,000 unit PO DAILY 08/12/17 [History] Gabapentin 1,600 mg PO BID 08/12/17 [History] Vitamin A Acetate [Vitamin A] 10,000 unit SL DAILY 08/12/17 [History] Melatonin 10 mg PO HS PRN 04/05/18 [History] Cyanocobalamin (Vitamin B-12) [Vitamin B-12] 5,000 mcg PO DAILY 09/05/18 [History] Alendronate Sodium [Fosamax] 70 mg PO Q7D 08/21/19 [History] Biotin 10,000 mcg PO DAILY 08/21/19 [History] Botox 200 mg SQ Q90D 08/21/19 [History] Calcium Carbonate [Calcium] 600 mg PO QAM 08/21/19 [History] Calcium Carbonate [Calcium] 900 mg PO HS 08/21/19 [History] Cyclobenzaprine [Flexeril] 10 mg PO HS 08/21/19 [History] Desvenlafaxine Succinate [Pristiq] 50 mg PO HS 08/21/19 [History] Ferrous Sulfate [Iron] 325 mg PO DAILY 08/21/19 [History] Multivitamins, Thera [Multivitamin (formulary)] 1 tab PO DAILY 08/21/19 [History] Omeprazole 20 mg PO DAILY PRN 08/21/19 [History] Sertraline HCl [Zoloft] 100 mg PO QAM 08/21/19 [History] Thiamine HCl [Vitamin B-1] 100 mg PO DAILY 08/21/19 [History] Follow up [facility]ment(s[facility] [facility] [place] [place] [place] - 09/[facility]/19 Patient Instructions/Handouts: Esophagitis (DC) Activity/Diet/Wound Care/Special Instructions: Results takes at least 1 week, 09/01/19 Discharge Disposition: HOME SELF-CARE
[2019-08-25 13:12] VITALS: BP 138/85; PULSE 63; RESP 17
== END 2019-08-25 13:30 | disposition home or self-care (01) ==
LOC: ORWHC2ENDO 12:01
PROVIDERS: ATTEND Surgery Plastic and Reconstructive Surgery
DX: K21.0 Gastro-esophageal reflux disease with esophagitis (principal); K22.70 Barrett's esophagus without dysplasia; I10 Essential (primary) hypertension; F32.9 Major depressive disorder, single episode, unspecified; F41.9 Anxiety disorder, unspecified; M35.00 Sjogren syndrome, unspecified; G47.33 Obstructive sleep apnea (adult) (pediatric); G43.909 Migraine, unspecified, not intractable, without status migrainosus; M79.7 Fibromyalgia; R29.90 Unspecified symptoms and signs involving the nervous system; Z79.83 Long term (current) use of bisphosphonates; Z79.899 Other long term (current) drug therapy; Z86.718 Personal history of other venous thrombosis and embolism; Z99.89 Dependence on other enabling machines and devices; Z90.49 Acquired absence of other specified parts of digestive tract; Z98.890 Other specified postprocedural states; Z98.84 Bariatric surgery status; Z85.118 Personal history of other malignant neoplasm of bronchus and lung; Z82.49 Family history of ischemic heart disease and other diseases of the circulatory system; Z88.5 Allergy status to narcotic agent; Z88.8 Allergy status to other drugs, medicaments and biological substances
CPT/HCPCS: 88305; 43239; J2001; J2704

== ENCOUNTER → 2019-09-24 | Outpatient (CLI) | payer MEDICARE ==
[2019-09-24 17:06] VITALS: BP 123/77; PULSE 76; TEMP 98.2; BMI 25.9
--- NOTE | 2019-09-24 17:35 | P.PN ---
Subjective Progress Note Date: 09/24/19 DATE OF SERVICE: 09/24/2019 CHIEF COMPLAINT: Abdominal pain HISTORY OF PRESENT ILLNESS: Ana Lilia Hayes is a 54-year-old female who is status post gastric bypass 05/11/2017. She comes in 2+ years out from her gastric bypass. She comes in with epigastric pain. She had an upper scope that confirmed an ulcer. She reports some improvement of her abdominal pain. At her height of 5 feet 4-1/4 inches, her ideal body weight is 144 pounds. Her highest weight was 255 pounds. Body mass index was 43.5. Today she comes in 152 pounds from 137 pounds, 4 months. She has gained 15 pounds in 4 months. She has lost 103 pounds lifetime. Body mass index down to 25.9. Percent excess weight loss is 93 %. She is upset with her weight gain. PHYSICAL EXAM: VITAL SIGNS: 5 feet 4.25 inches frame. Weight 152 pounds. Her body mass index 25.9 Vital Signs Temp 98.2 F 09/24/19 16:58 Pulse 76 09/24/19 16:58 Resp BP 123/77 09/24/19 16:58 Pulse Ox ABDOMEN: Soft, nontender, nondistended. No palpable incisional hernias. Mild panniculitis. Skin elastosis. Pannus is present. GENERAL: Well-developed female in no acute distress. HEENT: No sclerae icterus. Extraocular movements grossly intact. Moist buccal mucosa. NECK: Supple without lymphadenopathy. CHEST: Nonlabored respirations. Equal bilateral excursions. CARDIOVASCULAR: Regular rate and rhythm. MUSCULOSKELETAL: No clubbing, cyanosis, or edema. NEURO: No focal or lateralizing signs. Cranial nerves II through XII grossly within normal limits. PSYCH: Appropriate affect. Alert and oriented to person, place and time. SKIN: Well-perfused. Good skin turgor. MEDICAL REPORT: Upper scope confirms gastrojejunal ulcer PATHOLOGY: Rivero's esophagus without dysplasia ASSESSMENT: 1. Morbid obesity due to excess caloric intake. 2. Body mass index reduced from 43.5 down to 23.3 3. Osteoarthritis of the bilateral knees, secondary to morbid obesity, improved. 4. Osteoarthritis of the bilateral feet, secondary to morbid obesity, improved. 5. Osteoarthritis of the lower back, secondary to morbid obesity, improved. 6. Obstructive sleep apnea, resolved. 7. Pseudotumor cerebri, improved. 8. Gastroesophageal reflux disease, resolved. 9. Hypertensive heart disease. 10. Panniculitis. 11. History of binge eating, resolved 12. Status post gastric bypass. 13. Intermittent heart palpitations, resolved 14. Hyperthyroidism. 15. Hematuria PLAN: 1. She has been prescribed Omeprazole for 1 month 2. Will need repeat upper scope Objective - Vital Signs Vital signs: Vital Signs Temp 98.2 F 09/24/19 16:58 Pulse 76 09/24/19 16:58 Resp BP 123/77 09/24/19 16:58 Pulse Ox Intake & Output 09/23/19 09/24/19 09/24/19 18:59 06:59 18:59 Weight 68.946 kg
== END | disposition home or self-care (01) ==
LOC: BARWHC3 15:12
PROVIDERS: ATTEND Surgery Plastic and Reconstructive Surgery
DX: E66.01 Morbid (severe) obesity due to excess calories (principal); Z68.23 Body mass index [BMI] 23.0-23.9, adult; M17.0 Bilateral primary osteoarthritis of knee; M19.072 Primary osteoarthritis, left ankle and foot; M19.071 Primary osteoarthritis, right ankle and foot; R10.13 Epigastric pain; M47.816 Spondylosis without myelopathy or radiculopathy, lumbar region; I11.9 Hypertensive heart disease without heart failure; M79.3 Panniculitis, unspecified; E05.90 Thyrotoxicosis, unspecified without thyrotoxic crisis or storm; R31.9 Hematuria, unspecified
CPT/HCPCS: 99211

== ENCOUNTER → 2019-11-03 | Day surgery (SDC) | payer MEDICARE ==
[2019-10-30 15:52] VITALS: BMI 25.7
--- NOTE | 2019-11-02 20:04 | P.GSHP ---
History of Present Illness H&P Date: 11/03/19 CHIEF COMPLAINT: GERD HISTORY OF PRESENT ILLNESS: The patient is a 54-year-old female who presents reports gastroesophageal reflux disease. Upper endoscopy was offered for further evaluation and management. PAST MEDICAL HISTORY: Please see list. PAST SURGICAL HISTORY: Please see list. MEDICATIONS: Please see list. ALLERGIES: Please see list. SOCIAL HISTORY: No illicit drug use FAMILY HISTORY: No reports of Crohn disease or ulcerative colitis. REVIEW OF ORGAN SYSTEMS: CONSTITUTIONAL: No reports of fevers or chills. GI: Denies any blood in stools or constipation. PHYSICAL EXAM: VITAL SIGNS: Stable GENERAL: Well-developed and pleasant in no acute distress. HEENT: No scleral icterus. Extraocular movements grossly intact. Moist buccal mucosa. NECK: Supple without lymphadenopathy. CHEST: Unlabored respirations. Equal bilateral excursions. CARDIOVASCULAR: Regular rate and rhythm. Distal 2+ pulses. ABDOMEN: Soft, nondistended. MUSCULOSKELETAL: No clubbing, cyanosis, or edema. ASSESSMENT: 1. Gastroesophageal reflux disease PLAN: 1. Recommend proceeding with an upper endoscopy Past Medical History Past Medical History: Deep Vein Thrombosis (DVT), GERD/Reflux, Hypertension, Sleep Apnea/CPAP/BIPAP Additional Past Medical History / Comment(s): Chronic headache -gets Botox injections for pain, Sleep Apnea resolved since weight loss, Acid reflux , hx DVT 2012, "Very mild lung scarring, had severe cough X12 yrs", History of Any Multi-Drug Resistant Organisms: None Reported Past Surgical History: Appendectomy, Bariatric Surgery, Orthopedic Surgery, Tonsillectomy Additional Past Surgical History / Comment(s): Sinus surgery, bilateral knee surgery, bilateral carpal tunnel surgery, EGD X 4, Gastric Bypass 05-11-17. Past Anesthesia/Blood Transfusion Reactions: Previous Problems w/ Anesthesia, Family History of Problems w/ Anesthesia, Postoperative Nausea & Vomiting (PONV) Additional Past Anesthesia/Blood Transfusion Reaction / Comment(s): FAMILY - PONV Smoking Status: Never smoker - Past Family History Mother Family Medical History: Cancer Additional Family Medical History / Comment(s): , lung cancer. Sister(s) Family Medical History: Blood Disorder, Deep Vein Thrombosis (DVT) Additional Family Medical History / Comment(s): Factor V. Father Family Medical History: CVA/TIA, Hypertension Brother(s) Family Medical History: CVA/TIA, Hypertension Additional Family Medical History / Comment(s): recent TIA Medications and Allergies Home Medications Medication Instructions Recorded Confirmed Type Fluticasone Propionate [Flonase 2 spray EA NOSTRIL BID PRN 02/23/16 10/30/19 History Allergy Relief] Ondansetron HCl [Zofran] 8 mg PO Q8H PRN 07/20/16 10/30/19 History Metoprolol Tartrate [Lopressor] 25 mg PO BID 05/11/17 10/30/19 History ALPRAZolam [Xanax] 0.25 mg PO BID 08/12/17 10/30/19 History CHLORPHEN-HYDROcod 8-10mg/5ml 5 ml PO Q12H PRN 08/12/17 10/30/19 History [Tussionex] Cholecalciferol [Vitamin D3 (25 5,000 unit PO DAILY 08/12/17 10/30/19 History Mcg = 1000 Iu)] Gabapentin 1,600 mg PO BID 08/12/17 10/30/19 History Vitamin A Acetate [Vitamin A] 10,000 unit SL DAILY 08/12/17 10/30/19 History Melatonin 10 mg PO HS PRN 04/05/18 10/30/19 History Cyanocobalamin (Vitamin B-12) 5,000 mcg PO DAILY 09/05/18 10/30/19 History [Vitamin B-12] Biotin 10,000 mcg PO DAILY 08/21/19 10/30/19 History Botox 200 mg SQ Q90D 08/21/19 10/30/19 History Calcium Carbonate [Calcium] 600 mg PO BID 08/21/19 10/30/19 History Cyclobenzaprine [Flexeril] 10 mg PO HS 08/21/19 10/30/19 History Desvenlafaxine Succinate [Pristiq] 50 mg PO HS 08/21/19 10/30/19 History Ferrous Sulfate [Iron] 325 mg PO DAILY 08/21/19 10/30/19 History Multivitamins, Thera [Multivitamin 1 tab PO DAILY 08/21/19 10/30/19 History (formulary)] Sertraline HCl [Zoloft] 200 mg PO QAM 08/21/19 10/30/19 History Thiamine HCl [Vitamin B-1] 100 mg PO DAILY 08/21/19 10/30/19 History Omeprazole 40 mg PO DAILY #30 capsule. 09/24/19 10/30/19 Rx Allergies Allergy/AdvReac Type Severity Reaction Status Date / Time lamotrigine [From Lamictal] Allergy Rash/Hives Verified 10/30/19 15:27 oxycodone HCl [From Percodan] AdvReac Itching Verified 10/30/19 15:27 oxycodone terephthalate AdvReac Itching Verified 10/30/19 15:27 [From Percodan] propoxyphene napsylate AdvReac Itching Verified 10/30/19 15:27 [From Darvocet-N]
[~2019-11-03] MED LIST changes: +HYDROmorphone 0.5 MG/0.5 ML SYRINGE IVP ONE; +LIDOCAINE 1% INJ 10MG/ML (20 ML MDV) ONE; +PROPOFOL 10 MG/ML 20 ML VIAL IV ONE
[2019-11-03 08:00] VITALS: TEMP 97.3
--- NOTE | 2019-11-03 08:37 | P.PCN ---
Date of Procedure: 11/03/19 Description of Procedure: PREOPERATIVE DIAGNOSES: 1. Epigastric abdominal pain. 2. Gastroesophageal reflux disease POSTOPERATIVE DIAGNOSES: 1. Epigastric abdominal pain. 2. Gastroesophageal reflux disease 3. Erosive esophagitis PROCEDURE PERFORMED: Esophagogastrojejunoscopy with biopsies at the GE junction/distal esophagus SURGEON: Jeni Lentz MD ANESTHESIA: MAC. INDICATIONS: The patient is a 54-year-old female with prior history of Juan Manuel-en-Y gastric bypass with gastroesophageal reflux disease and epigastric abdominal pain. With her history of Juan Manuel-en-Y gastric bypass, upper endoscopy was offered for further evaluation and management. Benefits and risks described. Informed consent was obtained. DESCRIPTION: Patient was brought to the endoscopy suite and laid in the left lateral decubitus position. After adequate IV sedation, a bite block was placed. An Olympus gastroscope was passed along the posterior oropharynx down to the distal esophagus where the squamocolumnar junction was found at approximately 36 cm from the incisors. The diaphragmatic hiatus was found at 38 cm from the incisors. A diaphragmatic hiatal hernia of 2 cm was confirmed. No evidence of foreign body was found. No active gastrojejunal ulceration was encountered. Moderate erosive esophagitis, LA grade B was found. Biopsies along the distal esophagus was obtained. The scope was passed to 60 cm of the Juan Manuel limb. No remnant of blind jejunal limb was retained. The GI tract was desufflated. The patient tolerated the procedure well. FINDINGS: 1. No gastrojejunal ulceration 2. No foreign body found along the anastomosis. 3. No elongated jejunal blind pouch. 4. Squamocolumnar junction at 36 cm from the incisors. 5. Diaphragmatic hiatus at 38 cm from the incisors. 6. Hiatal hernia 2 cm fixed. 7. Erosive esophagitis PLAN: 1. Await biopsies for evaluation of Rivero's esophagus. 2. Omeprazole 40 mg daily advised. Plan - Discharge Summary Discharge Rx Participant: No New Discharge Prescriptions: Continue Fluticasone Propionate [Flonase Allergy Relief] 2 spray EA NOSTRIL BID PRN PRN Reason: Congestion Ondansetron HCl [Zofran] 8 mg PO Q8H PRN PRN Reason: Nausea Metoprolol Tartrate [Lopressor] 25 mg PO BID Vitamin A Acetate [Vitamin A] 10,000 unit SL DAILY Cholecalciferol [Vitamin D3 (25 Mcg = 1000 Iu)] 5,000 unit PO DAILY Gabapentin 1,600 mg PO BID CHLORPHEN-HYDROcod 8-10mg/5ml [Tussionex] 5 ml PO Q12H PRN PRN Reason: Cough ALPRAZolam [Xanax] 0.25 mg PO BID Melatonin 10 mg PO HS PRN PRN Reason: Insomnia Cyanocobalamin (Vitamin B-12) [Vitamin B-12] 5,000 mcg PO DAILY Multivitamins, Thera [Multivitamin (formulary)] 1 tab PO DAILY Cyclobenzaprine [Flexeril] 10 mg PO HS Sertraline HCl [Zoloft] 200 mg PO QAM Thiamine HCl [Vitamin B-1] 100 mg PO DAILY Ferrous Sulfate [Iron] 325 mg PO DAILY Desvenlafaxine Succinate [Pristiq] 50 mg PO HS Calcium Carbonate [Calcium] 600 mg PO BID Botox 200 mg SQ Q90D Biotin 10,000 mcg PO DAILY Omeprazole 40 mg PO DAILY #30 capsule.dr Discharge Medication List Fluticasone Propionate [Flonase Allergy Relief] 2 spray EA NOSTRIL BID PRN 02/23/16 [History] Ondansetron HCl [Zofran] 8 mg PO Q8H PRN 07/20/16 [History] Metoprolol Tartrate [Lopressor] 25 mg PO BID 05/11/17 [History] ALPRAZolam [Xanax] 0.25 mg PO BID 08/12/17 [History] CHLORPHEN-HYDROcod 8-10mg/5ml [Tussionex] 5 ml PO Q12H PRN 08/12/17 [History] Cholecalciferol [Vitamin D3 (25 Mcg = 1000 Iu)] 5,000 unit PO DAILY 08/12/17 [History] Gabapentin 1,600 mg PO BID 08/12/17 [History] Vitamin A Acetate [Vitamin A] 10,000 unit SL DAILY 08/12/17 [History] Melatonin 10 mg PO HS PRN 04/05/18 [History] Cyanocobalamin (Vitamin B-12) [Vitamin B-12] 5,000 mcg PO DAILY 09/05/18 [History] Biotin 10,000 mcg PO DAILY 08/21/19 [History] Botox 200 mg SQ Q90D 08/21/19 [History] Calcium Carbonate [Calcium] 600 mg PO BID 08/21/19 [History] Cyclobenzaprine [Flexeril] 10 mg PO HS 08/21/19 [History] Desvenlafaxine Succinate [Pristiq] 50 mg PO HS 08/21/19 [History] Ferrous Sulfate [Iron] 325 mg PO DAILY 08/21/19 [History] Multivitamins, Thera [Multivitamin (formulary)] 1 tab PO DAILY 08/21/19 [History] Sertraline HCl [Zoloft] 200 mg PO QAM 08/21/19 [History] Thiamine HCl [Vitamin B-1] 100 mg PO DAILY 08/21/19 [History] Omeprazole 40 mg PO DAILY #30 capsule. 09/24/19 [Rx] Follow up Appointment(s)/Ref[place]([facility] [facility] [place] - 11/12/19 Patient Instructions/Handouts: Esophagitis (ED) Discharge Disposition: HOME SELF-CARE
[2019-11-03 08:50] VITALS: BP 116/72; PULSE 69; RESP 16
== END | disposition home or self-care (01) ==
LOC: ORWHC2ENDO 07:37
PROVIDERS: ATTEND Surgery Plastic and Reconstructive Surgery
DX: K22.70 Barrett's esophagus without dysplasia (principal); K44.9 Diaphragmatic hernia without obstruction or gangrene; K21.0 Gastro-esophageal reflux disease with esophagitis; I10 Essential (primary) hypertension; G47.33 Obstructive sleep apnea (adult) (pediatric); Z99.89 Dependence on other enabling machines and devices; Z79.899 Other long term (current) drug therapy; R63.4 Abnormal weight loss; Z87.442 Personal history of urinary calculi; F32.9 Major depressive disorder, single episode, unspecified; F41.9 Anxiety disorder, unspecified; G43.909 Migraine, unspecified, not intractable, without status migrainosus; Z86.718 Personal history of other venous thrombosis and embolism; R05 Cough; J98.4 Other disorders of lung; Z98.84 Bariatric surgery status; Z80.1 Family history of malignant neoplasm of trachea, bronchus and lung; Z83.2 Family history of diseases of the blood and blood-forming organs and certain disorders involving the immune mechanism; Z82.3 Family history of stroke; Z82.49 Family history of ischemic heart disease and other diseases of the circulatory system; Z88.5 Allergy status to narcotic agent; Z88.8 Allergy status to other drugs, medicaments and biological substances
CPT/HCPCS: 88305; 88312; 43239; J2001; J2704; J1170

== ENCOUNTER → 2019-11-19 | Outpatient (CLI) | payer MEDICARE ==
[2019-11-19 13:24] VITALS: BP 137/75; PULSE 72; RESP 16; TEMP 98.4; BMI 26.5
--- NOTE | 2019-11-19 14:27 | P.PN ---
Subjective Progress Note Date: 11/19/19 DATE OF SERVICE: 11/19/2019 CHIEF COMPLAINT: Status post gastric bypass HISTORY OF PRESENT ILLNESS: Ana Lilia Hayes is a 54-year-old female who is status post gastric bypass 05/11/2017. She is over 2 years out. She denies any further trouble with eating or dysphagia. She comes in with 17 pounds weight gain in the last 3 months. She eats moderate carbohydrates. She comes in with troubles with weight gain. She comes in with new diagnosis of Sjogren's. At her height of 5 feet 4-1/4 inches, her ideal body weight is 144 pounds. Her highest weight was 255 pounds. Body mass index was 43.5. Today she comes in 156 pounds from 152 pounds, 2 months ago. She has gained 4 pounds in 2 months. She has lost 99 pounds lifetime. Body mass index down to 26.6. Percent excess weight loss is 89 %. PHYSICAL EXAM: VITAL SIGNS: 5 feet 4.25 inches frame. Weight 156 pounds. Her body mass index 26.6 Vital Signs Temp 98.4 F 11/19/19 13:22 Pulse 72 11/19/19 13:22 Resp 16 11/19/19 13:22 BP 137/75 11/19/19 13:22 Pulse Ox ABDOMEN: Soft, nontender, nondistended. GENERAL: Well-developed female in no acute distress. HEENT: No sclerae icterus. Extraocular movements grossly intact. Moist buccal mucosa. NECK: Supple without lymphadenopathy. CHEST: Nonlabored respirations. Equal bilateral excursions. CARDIOVASCULAR: Regular rate and rhythm. MUSCULOSKELETAL: No clubbing, cyanosis, or edema. NEURO: No focal or lateralizing signs. Cranial nerves II through XII grossly within normal limits. PSYCH: Appropriate affect. Alert and oriented to person, place and time. SKIN: Well-perfused. Good skin turgor. ASSESSMENT: 1. Morbid obesity due to excess caloric intake. 2. Body mass index reduced from 43.5 down to 26.6 3. Osteoarthritis of the bilateral knees, secondary to morbid obesity, improved. 4. Osteoarthritis of the bilateral feet, secondary to morbid obesity, improved. 5. Osteoarthritis of the lower back, secondary to morbid obesity, improved. 6. Obstructive sleep apnea, resolved. 7. Pseudotumor cerebri, improved. 8. Gastroesophageal reflux disease, resolved. 9. Hypertensive heart disease. 10. Panniculitis. 11. History of binge eating, resolved 12. Status post gastric bypass. 13. Intermittent heart palpitations, resolved 14. Hyperthyroidism. 15. Hematuria PLAN: 1. Recommend food diary journal. 2. Recommend increase protein intake 75 grams daily 3. She has new diagnosis of Sjogrens which progresses to esophageal disorder 4. Continue Omeprazole as needed Objective - Vital Signs Vital signs: Vital Signs Temp 98.4 F 11/19/19 13:22 Pulse 72 11/19/19 13:22 Resp 16 11/19/19 13:22 BP 137/75 11/19/19 13:22 Pulse Ox Intake & Output 11/18/19 11/19/19 11/19/19 18:59 06:59 18:59 Weight 70.76 kg
== END | disposition home or self-care (01) ==
LOC: BARWHC3 13:04
PROVIDERS: ATTEND Surgery Plastic and Reconstructive Surgery
DX: Z48.815 Encounter for surgical aftercare following surgery on the digestive system (principal); E66.01 Morbid (severe) obesity due to excess calories; M17.0 Bilateral primary osteoarthritis of knee; M19.072 Primary osteoarthritis, left ankle and foot; M19.071 Primary osteoarthritis, right ankle and foot; G93.2 Benign intracranial hypertension; I11.9 Hypertensive heart disease without heart failure; M79.3 Panniculitis, unspecified; E05.90 Thyrotoxicosis, unspecified without thyrotoxic crisis or storm; M35.09 Sjogren syndrome with other organ involvement; K22.9 Disease of esophagus, unspecified; R31.9 Hematuria, unspecified; Z68.26 Body mass index [BMI] 26.0-26.9, adult; Z98.84 Bariatric surgery status
CPT/HCPCS: 99211

== ENCOUNTER → 2020-04-02 | Outpatient (CLI) | payer MEDICARE | LOC: LABWHC1 12:20 | PROVIDERS: ATTEND Psychiatry & Neurology Psychiatry | DX: N39.0 Urinary tract infection, site not specified (principal) | CPT/HCPCS: 87086 ==

== ENCOUNTER → 2020-04-26 | Outpatient (CLI) | payer MEDICARE ==
--- NOTE | 2020-04-26 20:30 | XR ---
EXAMINATION TYPE: XR chest 2V DATE OF EXAM: 04/26/2020 CLINICAL HISTORY: Lobar pneumonia TECHNIQUE: Frontal and lateral views of the chest are obtained. COMPARISON: Chest radiograph 04/18/2020 FINDINGS: The cardiomediastinal silhouette is within normal limits for size. Pulmonary vasculature i s normal. There is resolution of the previously described airspace opacity. There is no focal air spa ce opacity, pleural effusion, or pneumothorax seen. The osseous structures are intact. IMPRESSION: No acute cardiopulmonary process. Resolution of pneumonia demonstrated on 04/28/2020 comp clarissa.
== END | disposition home or self-care (01) ==
LOC: RADXRMAIN 12:01
PROVIDERS: ATTEND Family Medicine
DX: J18.1 Lobar pneumonia, unspecified organism (principal)
CPT/HCPCS: 71046

== ENCOUNTER → 2020-05-06 | Outpatient (CLI) | payer MEDICARE ==
[2020-05-06 14:48] LABS: Basophils # (A) 0.1 k/uL (0-0.2); Basophils % (A) 0 %; Eosinophils % (A) 0 %; HCT 42.3 % (34.0-46.0); HGB 13.3 gm/dL (11.4-16.0); Lymphocytes % (A) 6 %; MCH 27.5 pg (25.0-35.0); MCHC 31.4 g/dL (31.0-37.0); MCV 87.8 fL (80.0-100.0); Mean Platelet Volume 8.2; Monocytes # (A) 0.9 k/uL (0-1.0); Monocytes % (A) 6 %; Neutrophils # (A) 14.1 k/uL (1.3-7.7); Neutrophils % (A) 87 %; Platelet Count 239 k/uL (150-450); RBC 4.82 m/uL (3.80-5.40); RDW 13.4 % (11.5-15.5); WBC 16.2 k/uL (3.8-10.6)
[2020-05-06 21:56] LABS: African American GFR (CKD) 82.8 (60.0-200.0); Albumin 3.9 g/dL (3.80-4.90); Albumin/Globulin Ratio 2.44 (1.60-3.17); Anion Gap 9.6 mmol/L (4.00-12.00); BUN/Creat Ratio 21.11 Ratio (12.00-20.00); Calcium 9.1 mg/dL (8.7-10.3); Carbon Dioxide 25.4 mmol/L (21.6-31.8); Globulin 1.6 g/dL (1.6-3.3); Non-African American GFR(CKD) 71.5 (60.0-200.0); Potassium 3.7 mmol/L (3.5-5.5); Total Bilirubin 0.5 mg/dL (0.3-1.2); Total Protein 5.5 g/dL (6.2-8.2)
== END | disposition home or self-care (01) ==
LOC: LABWHC1 13:40
PROVIDERS: ATTEND Physician Assistant
DX: R05 Cough (principal)
CPT/HCPCS: 80053; 85025; 36415; U0003; C9803

== ENCOUNTER → 2020-05-06 | Outpatient (CLI) | payer MEDICARE ==
--- NOTE | 2020-05-06 13:51 | XR ---
EXAMINATION TYPE: XR chest 2V DATE OF EXAM: 05/06/2020 CLINICAL HISTORY: Cough. History of pneumonia 2 weeks ago. Cough, fever, shortness of breath. TECHNIQUE: Frontal and lateral views of the chest are obtained. COMPARISON: 04/26/2020 and 04/18/2020 chest radiographs FINDINGS: The cardiomediastinal silhouette is within normal limits for size. Pulmonary vasculature i s normal. There is no focal air space opacity, pleural effusion, or pneumothorax seen. The osseous st ructures are intact. IMPRESSION: No acute cardiopulmonary process.
== END | disposition home or self-care (01) ==
LOC: RADXRMAIN 13:26
PROVIDERS: ATTEND Physician Assistant
DX: R05 Cough (principal)
CPT/HCPCS: 71046

== ENCOUNTER → 2020-05-10 | Outpatient (CLI) | payer MEDICARE ==
[2020-05-10 13:40] LABS: Basophils % (A) 1 %; Eosinophils # (A) 0.2 k/uL (0-0.7); Eosinophils % (A) 2 %; HCT 42.4 % (34.0-46.0); HGB 12.9 gm/dL (11.4-16.0); Lymphocytes # (A) 1.8 k/uL (1.0-4.8); Lymphocytes % (A) 29 %; MCH 26.7 pg (25.0-35.0); MCHC 30.3 g/dL (31.0-37.0); MCV 88.2 fL (80.0-100.0); Mean Platelet Volume 7.7; Monocytes # (A) 0.3 k/uL (0-1.0); Monocytes % (A) 5 %; Neutrophils # (A) 3.8 k/uL (1.3-7.7); Neutrophils % (A) 61 %; Platelet Count 252 k/uL (150-450); RBC 4.81 m/uL (3.80-5.40); RDW 13.7 % (11.5-15.5); WBC 6.3 k/uL (3.8-10.6)
== END | disposition home or self-care (01) ==
LOC: LABWHC1 11:54
PROVIDERS: ATTEND Physician Assistant
DX: D72.829 Elevated white blood cell count, unspecified (principal)
CPT/HCPCS: 36415; 85025

== ENCOUNTER → 2020-06-02 | Outpatient (CLI) | payer MEDICARE ==
[2020-06-02 12:21] LABS: Appearance,Urine Clear (Clear); Bilirubin,Urine Negative (Negative); Blood,Urine Negative (Negative); Color,Urine Yellow; Glucose,Urine (UA) Negative (Negative); Ketones,Urine Negative (Negative); Leukocyte Esterase,Urine Negative (Negative); Nitrite,Urine Negative (Negative); PH, Urine 6.5 (5.0-8.0); Protein,Urine Negative (Negative); Specific Gravity,Urine 1.016 (1.001-1.035); Urobilinogen,Urine <2.0 mg/dL (<2.0)
[2020-06-02 12:23] LABS: HCT 41.4 % (34.0-46.0); HGB 12.9 gm/dL (11.4-16.0); MCH 27.4 pg (25.0-35.0); MCHC 31.2 g/dL (31.0-37.0); MCV 87.8 fL (80.0-100.0); Mean Platelet Volume 7.9; Platelet Count 214 k/uL (150-450); RBC 4.71 m/uL (3.80-5.40); RDW 13.2 % (11.5-15.5); WBC 5.7 k/uL (3.8-10.6)
[2020-06-02 19:27] LABS: C Reactive Protein <0.4 mg/dL (0.0-0.8)
[2020-06-02 19:28] LABS: ALT 42 U/L (8-44); AST 33 U/L (13-35); African American GFR (CKD) 95.5 (60.0-200.0); Albumin/Globulin Ratio 2.38 (1.60-3.17); Alkaline Phosphatase 87 U/L (41-126); BUN/Creat Ratio 18.75 Ratio (12.00-20.00); Carbon Dioxide 31.7 mmol/L (21.6-31.8); Chloride 107 mmol/L (96-109); Globulin 1.6 g/dL (1.6-3.3); Glucose 92 mg/dL (70-110); Non-African American GFR(CKD) 82.4 (60.0-200.0); Potassium 4.1 mmol/L (3.5-5.5); Sodium 143 mmol/L (135-145); Total Bilirubin 0.4 mg/dL (0.3-1.2); Total Protein 5.4 g/dL (6.2-8.2)
[2020-06-02 21:35] LABS: Erythrocyte Sedimentation Rate 4 mm/Hr (0-30)
== END | disposition home or self-care (01) ==
LOC: LABWHC1 11:28
PROVIDERS: ATTEND Psychiatry & Neurology Psychiatry
DX: F32.2 Major depressive disorder, single episode, severe without psychotic features (principal); Z79.899 Other long term (current) drug therapy
CPT/HCPCS: 36415; 80053; 81003; 84439; 84443; 85027; 85652; 86038; 86140

== ENCOUNTER → 2020-06-28 | Outpatient (CLI) | payer MEDICARE | END | disposition home or self-care (01) | LOC: LABWHC1 15:29 | PROVIDERS: ATTEND Family Medicine | DX: Z20.828 Contact with and (suspected) exposure to other viral communicable diseases (principal) | CPT/HCPCS: U0003; C9803 ==

== ENCOUNTER → 2020-07-07 | Outpatient (CLI) | payer MEDICARE ==
[2020-07-07 12:31] VITALS: BP 144/89; PULSE 68; RESP 16; TEMP 98.2; BMI 26.3
--- NOTE | 2020-07-07 12:37 | P.PN ---
Subjective Progress Note Date: 07/07/20 DATE OF SERVICE: 07/07/2020 CHIEF COMPLAINT: Status post gastric bypass HISTORY OF PRESENT ILLNESS: Ana Lilia Hayes is a 54-year-old female who is status post gastric bypass 05/11/2017. She is 3 years out. She comes in with epigastric abdominal pain. She reports gastroesophageal reflux disease. She s till has her gallbladder. She is symptomatic with her reflux disease despite omeprazole. She presents with worsening reflux disease. At her height of 5 feet 4-1/4 inches, her ideal body weight is 144 pounds. Her highest weight was 255 pounds. Body mass index was 43.5. Today she comes in 156 pounds unchanged from 7 months ago. She has lost 99 pounds lifetime. Body mass index down to 26.6. Percent excess weight loss is 89 %. PAST SURGICAL HISTORY: 1. Obstructive sleep apnea. 2. Morbid obesity, BMI 43.5, initial 3. Chronic headaches. 4. Osteoarthritis of bilateral knees. 5. Osteoarthritis of the lower back. 6. Gastroesophageal reflux disease. 7. Prior history of DVT. 8. Anxiety. 9. Depression. 10. Lipomas along the lower thighs. PAST SURGICAL HISTORY: 1. Appendectomy. 2. Bilateral knee arthroscopies. 3. Multiple spinal lumbar punctures. 4. Sinus surgery. 5. Tonsillectomy. 6. Upper endoscopy. 7. Excision of lipoma of the thighs. 8. Status post gastric bypass. MEDICATIONS: 1. Vitamin A 2. Tussionex 3. Zofran. 4. Multivitamin. 5. Toprol-XL. 6. Neurontin. 7. Flonase. 8. Vitamin D. 9. Nascobol. 10. Biotin. 11. Xanax. 12. Nystatin powder. 13. Flexeril. 14. Nascobal 15. Lopressor 16. Bisacodyl ALLERGIES: 1. DARVOCET. 2. ASPIRIN. 3. LAMICTAL. 4. OXYCODONE. 5. FLUOXETINE. SOCIAL HISTORY: Lifelong nontobacco user. She is a . FAMILY HISTORY: Pertinent for colon cancer in father in his early 40s. Had Sj'ogren's disease. No reports of esophageal or stomach cancer. His family history of esophageal dysphagia such as achalasia. REVIEW OF SYSTEMS: CONSTITUTIONAL: At her height of 5 feet 4-1/4 inches, her ideal body weight is 144 pounds. Her highest weight was 255 pounds. Body mass index was 43.5. GASTROINTESTINAL: Gastroesophageal reflux resolved. No reports of diarrhea. MUSCULOSKELETAL: Chronic pain of the bilateral knees improved. Has lower back pain as well as knee pain and bilateral foot pain, osteoarthritis also improved. HEENT: No troubles with vision or hearing. No reports of active dysphagia. RESPIRATORY: Has chronic cough. Has obstructive sleep apnea resolved. Prior history of bronchiectasis. CARDIOVASCULAR: Intermittent palpitations including chest pain from anxiety, now resolved. NEURO: History of chronic headaches, now improved. No seizure. PSYCH: History of anxiety and depression. HEMATOLOGIC: Prior history of DVT. No reports of easy bruising or bleeding. SKIN: History of skin lipomas. No history of skin cancer. PHYSICAL EXAM: VITAL SIGNS: 5 feet 4.25 inches frame. Weight 156 pounds. Her body mass index 26.6 Vital Signs Temp 98.2 F 07/07/20 12:29 Pulse 68 07/07/20 12:29 Resp 16 07/07/20 12:29 BP 144/89 07/07/20 12:29 Pulse Ox ABDOMEN: Soft, nontender, nondistended. GENERAL: Well-developed female in no acute distress. HEENT: No sclerae icterus. Extraocular movements grossly intact. Moist buccal mucosa. NECK: Supple without lymphadenopathy. CHEST: Nonlabored respirations. Equal bilateral excursions. CARDIOVASCULAR: Regular rate and rhythm. MUSCULOSKELETAL: No clubbing, cyanosis, or edema. NEURO: No focal or lateralizing signs. Cranial nerves II through XII grossly within normal limits. PSYCH: Appropriate affect. Alert and oriented to person, place and time. SKIN: Well-perfused. Good skin turgor. STUDIES: CT of the abdomen and pelvis independently reviewed demonstrates hiatal hernia. EGD FINDINGS: 1. No gastrojejunal ulceration 2. No foreign body found along the anastomosis. 3. No elongated jejunal blind pouch. 4. Squamocolumnar junction at 36 cm from the incisors. 5. Diaphragmatic hiatus at 38 cm from the incisors. 6. Hiatal hernia 2 cm fixed. 7. Erosive esophagitis ASSESSMENT: 1. Morbid obesity due to excess caloric intake. 2. Body mass index reduced from 43.5 down to 26.4 3. Osteoarthritis of the bilateral knees, secondary to morbid obesity, improved. 4. Osteoarthritis of the bilateral feet, secondary to morbid obesity, improved. 5. Osteoarthritis of the lower back, secondary to morbid obesity, improved. 6. Obstructive sleep apnea, resolved. 7. Pseudotumor cerebri, improved. 8. Gastroesophageal reflux disease, resolved. 9. Hypertensive heart disease. 10. Panniculitis. 11. History of binge eating, resolved 12. Status post gastric bypass. 13. Intermittent heart palpitations, resolved 14. Hyperthyroidism. 15. Hematuria PLAN: 1. She comes in with epigastric abdominal and has GERD, recommend hiatal hernia repair. Robotic assisted approach reviewed. 2. She is elevated risk for complications due to previous gastric bypass Objective - Vital Signs Vital signs: Vital Signs Temp 98.2 F 07/07/20 12:29 Pulse 68 07/07/20 12:29 Resp 16 07/07/20 12:29 BP 144/89 07/07/20 12:29 Pulse Ox Intake & Output 07/06/20 07/07/20 07/07/20 18:59 06:59 18:59 Weight 70.76 kg
== END | disposition home or self-care (01) ==
LOC: BARWHC3 11:23
PROVIDERS: ATTEND Surgery Plastic and Reconstructive Surgery
DX: E66.01 Morbid (severe) obesity due to excess calories (principal); M17.0 Bilateral primary osteoarthritis of knee; M19.072 Primary osteoarthritis, left ankle and foot; M19.071 Primary osteoarthritis, right ankle and foot; M47.9 Spondylosis, unspecified; G93.2 Benign intracranial hypertension; I11.9 Hypertensive heart disease without heart failure; M79.3 Panniculitis, unspecified; R00.2 Palpitations; E03.9 Hypothyroidism, unspecified; R31.9 Hematuria, unspecified; Z98.84 Bariatric surgery status; Z88.8 Allergy status to other drugs, medicaments and biological substances; Z68.26 Body mass index [BMI] 26.0-26.9, adult; Z88.5 Allergy status to narcotic agent; Z79.891 Long term (current) use of opiate analgesic; Z79.899 Other long term (current) drug therapy
CPT/HCPCS: 99211

== ENCOUNTER 2020-07-19 06:24 | Inpatient (IN) | payer MEDICARE ==
[2020-07-16 09:52] VITALS: BMI 25.2
--- NOTE | 2020-07-18 19:32 | P.GSHP ---
History of Present Illness H&P Date: 07/19/20 CHIEF COMPLAINT: Hiatal hernia with gastroesophageal reflux disease. HISTORY OF PRESENT ILLNESS: The patient is a 55-year-old female who presents with paraesophageal hiatal hernia. She has completed an upper endoscopy workup. Now she presents for surgical intervention. PAST MEDICAL HISTORY: Please see list. PAST SURGICAL HISTORY: Please see list. MEDICATIONS: Please see list. ALLERGIES: Please see list. SOCIAL HISTORY: No illicit drug use FAMILY HISTORY: No reports of Crohn disease or ulcerative colitis. REVIEW OF ORGAN SYSTEMS: CONSTITUTIONAL: No reports of fevers or chills. GI: Denies any blood in stools or constipation. PHYSICAL EXAM: VITAL SIGNS: Stable GENERAL: Well-developed pleasant and in no acute distress. HEENT: No scleral icterus. Extraocular movements grossly intact. Moist buccal mucosa. NECK: Supple without lymphadenopathy. CHEST: Unlabored respirations. Equal bilateral excursions. CARDIOVASCULAR: Regular rate and rhythm. Distal 2+ pulses. ABDOMEN: Soft, nondistended. No peritoneal signs. MUSCULOSKELETAL: No clubbing, cyanosis, or edema. SKIN: Well-perfused. Good skin turgor. ASSESSMENT: 1. Diaphragmatic paraesophageal hiatal hernia with severe gastroesophageal reflux disease. PLAN: 1. Recommend proceeding with a robotic paraesophageal hiatal hernia with possible mesh. 2. Benefits and risks of surgical intervention was discussed including possibility of open technique. 3. Inpatient hospitalization recommended of 2 nights 4. DVT prophylaxis. 5. Antibiotic prophylaxis. 6. She has also completed a very low caloric high-protein diet to address underlying hepatomegaly. Past Medical History Past Medical History: Deep Vein Thrombosis (DVT), Fibromyalgia, Hypertension, Sleep Apnea/CPAP/BIPAP Additional Past Medical History / Comment(s): Chronic headache -gets Botox injections for pain, Sleep Apnea resolved since weight loss, , hx DVT 2012, "Very mild lung scarring, had severe cough X12 yrs", varicose veins, hiatal hernia, kdiney stones, History of Any Multi-Drug Resistant Organisms: None Reported Past Surgical History: Appendectomy, Bariatric Surgery, Orthopedic Surgery, Tonsillectomy Additional Past Surgical History / Comment(s): Sinus surgery, bilateral knee surgery, bilateral carpal tunnel surgery, EGD X 4, Gastric Bypass 05-11-17. Past Anesthesia/Blood Transfusion Reactions: Family History of Problems w/ Anesthesia, Postoperative Nausea & Vomiting (PONV) Additional Past Anesthesia/Blood Transfusion Reaction / Comment(s): FAMILY - PONV Smoking Status: Never smoker - Past Family History Mother Family Medical History: Cancer, Deep Vein Thrombosis (DVT) Additional Family Medical History / Comment(s): lung cancer. Sister(s) Family Medical History: Blood Disorder, Deep Vein Thrombosis (DVT) Additional Family Medical History / Comment(s): Factor V. Father Family Medical History: CVA/TIA, Hypertension Brother(s) Family Medical History: CVA/TIA, Hypertension Additional Family Medical History / Comment(s): recent TIA Medications and Allergies Home Medications Medication Instructions Recorded Confirmed Type Fluticasone Propionate [Flonase 2 spray EA NOSTRIL BID PRN 02/23/16 07/16/20 History Allergy Relief] Ondansetron HCl [Zofran] 8 mg PO Q8H PRN 07/20/16 07/16/20 History Metoprolol Tartrate [Lopressor] 25 mg PO BID 05/11/17 07/16/20 History ALPRAZolam [Xanax] 0.25 mg PO BID 08/12/17 07/16/20 History CHLORPHEN-HYDROcod 8-10mg/5ml 5 ml PO Q12H PRN 08/12/17 07/16/20 History [Tussionex] Cholecalciferol [Vitamin D3 (25 5,000 unit PO DAILY 08/12/17 07/16/20 History Mcg = 1000 Iu)] Gabapentin 1,600 mg PO BID 08/12/17 07/16/20 History Vitamin A Acetate [Vitamin A] 10,000 unit SL DAILY 08/12/17 07/16/20 History Cyanocobalamin (Vitamin B-12) 5,000 mcg PO Q48H 09/05/18 07/16/20 History [Vitamin B-12] Biotin 10,000 mcg PO DAILY 08/21/19 07/16/20 History Botox 200 mg SQ Q90D 08/21/19 07/16/20 History Calcium Carbonate [Calcium] 600 mg PO BID 08/21/19 07/16/20 History Cyclobenzaprine [Flexeril] 10 mg PO HS 08/21/19 07/16/20 History Desvenlafaxine Succinate [Pristiq] 50 mg PO HS 08/21/19 07/16/20 History Ferrous Sulfate [Iron] 325 mg PO BID 08/21/19 07/16/20 History Multivitamins, Thera [Multivitamin 1 tab PO DAILY 08/21/19 07/16/20 History (formulary)] Sertraline HCl [Zoloft] 200 mg PO QAM 08/21/19 07/16/20 History Thiamine HCl [Vitamin B-1] 100 mg PO DAILY 08/21/19 07/16/20 History Omeprazole 40 mg PO DAILY #30 capsule. 09/24/19 07/16/20 Rx Pyridoxine HCl (Vitamin B6) 100 mg PO DAILY 04/17/20 07/16/20 History [Vitamin B-6] traZODone HCL 50 - 150 mg PO HS 04/17/20 07/16/20 History Allergies Allergy/AdvReac Type Severity Reaction Status Date / Time lamotrigine [From Lamictal] Allergy Rash/Hives Verified 07/16/20 09:39 oxycodone HCl [From Percodan] AdvReac Itching Verified 07/16/20 09:39 oxycodone terephthalate AdvReac Itching Verified 07/16/20 09:39 [From Percodan] propoxyphene napsylate AdvReac Itching Verified 07/16/20 09:39 [From Darvocet-N]
[~2020-07-19 06:24] MED LIST changes: +DEXAMETHASONE SOD PHOSPHATE 4 MG/ML 1 ML VIAL IV ONE; -HYDROmorphone 0.5 MG/0.5 ML SYRINGE IVP ONE; -LACTATED RINGERS 1,000 ML IV SCH; -LIDOCAINE 1% 20 ML VIAL (10MG/ML) FOR IV START INTRADERMA PRN; -LIDOCAINE 1% INJ 10MG/ML (20 ML MDV) ONE; +MIDAZOLAM 2 MG/2 ML VIAL IV PRN; +ONDANSETRON 4 MG/2 ML VIAL IVP ONE; -PROPOFOL 10 MG/ML 20 ML VIAL IV ONE; +SCOPOLAMINE 1.5MG/72HR PATCH TRANSDERM ONE
[2020-07-19 07:19] LABS: HCT 39.8 % (34.0-46.0); HGB 13.7 gm/dL (11.4-16.0); MCH 29.2 pg (25.0-35.0); MCHC 34.4 g/dL (31.0-37.0); MCV 84.9 fL (80.0-100.0); Mean Platelet Volume 8.2; Platelet Count 230 k/uL (150-450); RBC 4.68 m/uL (3.80-5.40); RDW 13.1 % (11.5-15.5); WBC 7.2 k/uL (3.8-10.6)
[2020-07-19] MEDS: LACTATED RINGERS 1,000 ML IV SCH (07:22)
[2020-07-19] MEDS ORDERED: ePHEDrine SULFATE/0.9% NACL/PF 50 MG/5 ML SYRINGE IV ONE (07:30)
[2020-07-19] MEDS ORDERED: NEOSTIGMINE 1 MG/ML 10 ML VIAL ONE (07:30)
[2020-07-19] MEDS ORDERED: MIDAZOLAM 2 MG/2 ML VIAL ONE (07:30)
[2020-07-19] MEDS ORDERED: KETAMINE 10 MG/ML 20 ML VIAL ONE (07:30)
[2020-07-19] MEDS ORDERED: GLYCOPYRROLATE 0.2 MG/ML 2 ML VIAL ONE (07:30)
[2020-07-19] MEDS ORDERED: PROPOFOL 10 MG/ML 20 ML VIAL IV ONE (07:30)
[2020-07-19] MEDS ORDERED: SUCCINYLCHOLINE CHLORIDE 100 MG/5 ML SYR IV ONE (07:30)
[2020-07-19] MEDS ORDERED: PHENYLEPHRINE-0.9% NACL SYG 1 MG/10 ML SYRINGE ONE (07:30)
[2020-07-19] MEDS ORDERED: LIDOCAINE 1% INJ 10MG/ML (20 ML MDV) ONE (07:30)
[2020-07-19] MEDS ORDERED: HYDROmorphone (PF) 1 MG/ML ONE (07:30)
[2020-07-19] MEDS ORDERED: ROCURONIUM 10 MG/ML (10 ML VIAL) IV ONE (07:30)
[2020-07-19] MEDS ORDERED: fentaNYL (PF) 50 MCG/ML 2 ML AMP ONE (07:30)
[2020-07-19] MEDS ORDERED: BUPIVACAINE (PF) 0.25% 30 ML VIAL SQ ONE (08:15)
[2020-07-19] MEDS ORDERED: LACTATED RINGERS 1,000 ML IV ONE (08:21)
[2020-07-19] MEDS ORDERED: NALOXONE 0.4 MG/ML 1 ML VIAL IV PRN (09:27)
[2020-07-19] MEDS ORDERED: ONDANSETRON 4 MG/2 ML VIAL IVP PRN (09:27)
--- NOTE | 2020-07-19 09:27 | P.OP ---
Date of Procedure: 07/19/20 Description of Procedure: DESCRIPTION OF PROCEDURE(S): SURGEON: BOOGIE LIU MD PREOPERATIVE DIAGNOSES: 1. Gastroesophageal reflux disease, with erosive esophagitis 2. Paraesophageal hiatal hernia, midline, initial 3. History of sleeve gastrectomy 4. Epigastric abdominal pain. 5. Depressive disorder 6. Fibromyalgia 7. Chronic headaches 8. History of sleep apnea 9. History of DVT POSTOPERATIVE DIAGNOSES: 1. Gastroesophageal reflux disease, with erosive esophagitis 2. Paraesophageal hiatal hernia, midline, initial, 4 x 4 cm 3. History of sleeve gastrectomy 4. Epigastric abdominal pain. 5. Depressive disorder 6. Fibromyalgia 7. Chronic headaches 8. History of sleep apnea 9. History of DVT 10. Peritoneal adhesions OPERATION: 1. Robotic-assisted da Mayra Xi laparoscopic reduction and repair of initial incarcerated paraesophageal hiatal hernia, 4 x 4 cm, with [place] Biopatch A 8 x 8 cm. 2. Robotic-assisted da Mayra Xi laparoscopic lysis of adhesions over 30 minutes 3. Intraoperative esophagogastroscopy ANESTHESIA: General with local anesthetic. ESTIMATED BLOOD LOSS: 5 mL Pathology: None COMPLICATIONS: None. FINDINGS: 1. Incarcerated upper pole of the stomach within the mediastinum 2. 4 cm paraesophageal incarcerated diaphragmatic hiatal hernia 3. [place] Biopatch A onlay mesh placed. 4. GE junction at 36 cm from the incisors 5. Intra-abdominal esophageal length over 2 cm obtained INDICATIONS: The patient is a 55-year-old female who presents with epigastric abdominal pain, history of gastric bypass, gastroesophageal reflux recalcitrant to medical therapy with a symptomatic diaphragmatic hiatal hernia. Preoperative workup including upper endoscopy demonstrated hiatal hernia with erosive esophagitis. Given the severity of her symptoms, she had elected for surgical intervention. Benefits and risks including bleeding, infection, recurrence, dysphagia, injury to the lung, need for further surgery was described at length. Informed consent was obtained. DESCRIPTION: The patient was brought into the operating room and placed in s upine position. Preoperatively she had received heparin subcutaneously for DVT prophylaxis. After general induction, the abdomen was prepped and draped in standard sterile fashion. The patient had previously voided prior to coming to the operating room. Ioban draping was placed along the abdomen. A timeout protocol was confirmed with the surgical team, for which the patient's name, procedure to be performed including DVT prophylaxis with bilateral SCDs, and preoperative antibiotics were also confirmed. A robotic da Mayra Xi system was prepped and primed. At 15 cm from the xiphoid to just below the umbilicus, proposed port sites were marked with indelible marker along the left axillary line, left mid-clavicular line with each ports were marked 10 cm from each other. A 5 mm 0 degrees laparoscopic trocar entry was performed along the left upper quadrant. The abdomen was insufflated to 15 mmHg pressure was tolerated well. Diagnostic laparoscopy demonstrated no injury to bowel, viscera. Severe peritoneal of the bilateral upper abdomen was identified. Next, one 8 mm robotic port was placed along the right upper abdomen. An 8-mm port was were placed along the left lateral abdominal wall. The camera 8-mm port was maintained along the epigastrium. Another 12 mm port was placed along the left upper abdominal wall after exchanging the 5 mm port. Please note that the ports were placed at least 20 cm away from the target anatomy. Care was taken to check that each robotic arm were safely away from collision with the bed or the patient. The patient was repositioned in reverse Trendelenburg position at 21-degrees after lowering the bed. The robot was docked above the left side of the patient. Using a grasper for arm 3, a grasper for arm 1, including vessel sealer for arm 2, the robotic system was docked and primed as described. Instruments were interchanged by the broker assistant. I had sat at the console. Initial attention was brought to adhesions on the left upper quadrant were taken down using vessel sealer for over 30 minutes. The gallbladder wall was mildly thickened suspicious for chronic cholecystitis however undisturbed. Attention was brought to hiatus. Circumferentially the dissection at the hiatus was performed using vessel sealer including blunt dissection. The gastrohepatic ligament was cleaved using a vessel sealer. Next, the phrenoesophageal ligament was mobilized and the distal esophagus was mobilized circumferentially. An incarcerated hernia sac was found into the mediastinum. The left and right crura was identified. Mobilization of the distal to mid esophagus into the mediastinum was performed. Circumferentially, the hernia sac was incised and brought into the abdominal cavity. Care was taken to avoid any gastrotomy to the incarcerated upper pole of the stomach. The measured defect was measured with a ruler consistent with 4 cm axial length and 4 cm in width. After extensive dissection, the distal esophagus at least 2 cm was brought into the abdominal cavity. Once the hiatus and crura was dissected, 2-0 VLOC nonabsorbable suture was placed to re-approximate the diaphragmatic hiatus posteriorly. To buttress the repair, a [place] Biopatch A was prepared along the back table and cut in a half [place]-hole fashion as to reinforce the repair as an underlay. The mesh was resized posteriorly placed along the crural repair and tagged using 2- 0 VLOC. I went to the head of the bed to perform intraoperative esophagogastroduodenoscopy. An Olympus gastroscope was passed through posterior oropharynx, where the squamocolumnar junction was confirmed at 36 cm from the incisors including the hiatus. The hiatus repair was confirmed from the incisors. The stomach was entered. The stomach had been desufflated. No evidence of leaks were found or mucosal defects of the esophagus or stomach. This concluded the endoscopic portion of the case. The robot was undocked from the patient. I re-scrubbed into the case. Along previous cicatrix above the umbilicus, scar was reopened where she reported chronic pain. The scar was released from the abdominal wall and closed using 4-0 Monocryl. All instruments and pneumoperitoneum were evacuated from the abdominal cavity. The incisions were cleansed with dilute hydrogen peroxide with saline solution. Incisions were reapproximated using 4-0 Monocryl in an interrupted subcuticular fashion. The 12-mm port site fascial defect was less than 8 mm in size. Exofin was applied to the skin. Local anesthetic was infiltrated in all wounds for postop analgesia. Multiple intra-abdominal films were obtained. At the end of the procedure, needle, sponge, and instrument count was verified correct by the nursing surgical services director. The patient had tolerated the procedure well and was taken to the postanesthesia unit in stable condition. Intraoperative films were reviewed with the patient's family who were pleased with the level of care.
[2020-07-19] MEDS ORDERED: DEXAMETHASONE SOD PHOSPHATE 10 MG/ML 1 ML VIAL IV PRN (09:30)
[2020-07-19] MEDS ORDERED: guaiFENesin-DM 100-10MG/5ML 10 ML CUP PO PRN (09:31)
[2020-07-19] MEDS ORDERED: FLUTICASONE 50MCG/SPRAY NASAL 16GM EA NOSTRIL PRN (09:31)
[2020-07-19] MEDS: fentaNYL (PF) 50 MCG/ML 2 ML AMP IV PRN ×2 (09:41→09:52)
[2020-07-19] MEDS: HYDROmorphone 1 MG/ML 1 ML SYRINGE IVP ONE ×4 (09:59→10:12)
[2020-07-19] MEDS ORDERED: 0.9% NACL WITH KCL 20 MEQ/L 1,000 ML IV SCH (10:30)
[2020-07-19] MEDS: DEXAMETHASONE SOD PHOSPHATE 4 MG/ML 1 ML VIAL IV SCH ×3 (11:44→23:37)
[2020-07-19] MEDS: ACETAMINOPHEN IV (For NPO) 650 MG in EMPTY BAG 1 BAG IVPB SCH ×3 (11:44→23:43)
[2020-07-19] MEDS: HYOSCYAMINE ORAL DROPS 1.875 MG/15 ML BOTTLE PO SCH ×3 (11:45→23:42)
[2020-07-19] MEDS: SIMETHICONE 40 MG/0.6 ML DROPS 2,000 MG/30 ML BOTTLE PO SCH ×3 (11:45→23:40)
[2020-07-19] MEDS: ALBUTEROL NEBULIZED 2.5 MG/3 ML INHALATION SCH ×3 (12:42→20:26)
[2020-07-19 12:48] LABS: Calcium 8.8 mg/dL (8.4-10.2); Magnesium 1.7 mg/dL (1.6-2.3); Potassium 4.8 mmol/L (3.5-5.1)
[2020-07-19] MEDS ORDERED: diphenhydrAMINE 50 MG/ML 1 ML VIAL IVP PRN (15:04)
[2020-07-19] MEDS: SODIUM CHLORIDE 0.9% 1,000 ML IV SCH (15:31)
[2020-07-19] MEDS: HYDROmorphone 1 MG/ML 1 ML SYRINGE IVP PRN ×3 (15:32→21:42)
[2020-07-19] MEDS ORDERED: KETOROLAC 15 MG/ML 1 ML VIAL IVP SCH (16:00)
--- NOTE | 2020-07-19 16:18 | FL ---
EXAMINATION TYPE: FL esophagus cervic/pharynx DATE OF EXAM: 07/19/2020 LIMITED UGI-ESOPHAGRAM: CLINICAL HISTORY: Hiatal hernia and reflux status post Fundoplication surgery earlier today. TECHNIQUE: Limited esophagram is performed utilizing 50 oz of Isovue-370. A total of 1.49 minutes of fluoroscopic time was utilized during procedure and 30 images obtained. FINDINGS: The patient swallowed contrast without difficulty or delay. Esophageal peristalsis and mo tility are within normal limits. There is marked delay in flow of contrast along the diaphragmatic hi atus into the stomach, there is no evidence of contrast extravasation to suggest leak. No persistent hiatal hernia is seen. Significant amount of free air under right hemidiaphragm estimated roughly 2-3 cm craniocaudal dimension is noted during performance of study. Patient did not show increased sympt oms of nausea. After roughly 5 minutes from initial swallow majority of contrast remains pooled in di lated distal esophagus with air-fluid level on delayed x-ray. IMPRESSION: Moderate to severe obstruction perhaps related to postoperative edema. Slightly more prom inent free air than usual. Consider reevaluation tomorrow morning.
[2020-07-19] MEDS: METOPROLOL TARTRATE 25 MG TAB PO SCH (20:57)
[2020-07-19] MEDS: GABAPENTIN 400 MG CAP PO SCH (20:59)
[2020-07-19] MEDS: ALPRAZolam 0.25 MG TAB PO SCH (20:59)
[2020-07-19] MEDS ORDERED: DESVENLAFAXINE SUCCINATE 50 MG TAB.ER.24H PO SCH (21:00)
[2020-07-19] MEDS ORDERED: traZODone HCL 50 MG TAB PO SCH (21:00)
[2020-07-20] MEDS: HYDROmorphone 1 MG/ML 1 ML SYRINGE IVP PRN ×3 (00:50→11:53)
[2020-07-20] MEDS: SIMETHICONE 40 MG/0.6 ML DROPS 2,000 MG/30 ML BOTTLE PO SCH ×2 (05:33→11:52)
[2020-07-20] MEDS: HYOSCYAMINE ORAL DROPS 1.875 MG/15 ML BOTTLE PO SCH ×2 (05:34→11:52)
[2020-07-20] MEDS: SODIUM CHLORIDE 0.9% 1,000 ML IV SCH (05:35)
[2020-07-20] MEDS: ACETAMINOPHEN IV (For NPO) 650 MG in EMPTY BAG 1 BAG IVPB SCH (05:39)
[2020-07-20] MEDS: DEXAMETHASONE SOD PHOSPHATE 4 MG/ML 1 ML VIAL IV SCH ×2 (05:39→12:51)
[2020-07-20] MEDS: LACTATED RINGERS 1,000 ML IV SCH (05:53)
[2020-07-20 08:40] VITALS: RESP 18
[2020-07-20] MEDS ORDERED: ENOXAPARIN 40 MG/0.4 ML SYRINGE SQ SCH (09:00)
[2020-07-20] MEDS ORDERED: SERTRALINE 100 MG TAB PO SCH (09:00)
[2020-07-20] MEDS ORDERED: PANTOPRAZOLE 40 MG/10 ML VIAL IV SCH (09:00)
[2020-07-20] MEDS: ALBUTEROL NEBULIZED 2.5 MG/3 ML INHALATION SCH ×2 (09:05→12:41)
[2020-07-20] MEDS: METOPROLOL TARTRATE 25 MG TAB PO SCH (09:24)
[2020-07-20] MEDS: GABAPENTIN 400 MG CAP PO SCH (09:24)
[2020-07-20] MEDS: ALPRAZolam 0.25 MG TAB PO SCH (09:24)
[2020-07-20 09:45] LABS: Basophils % (A) 0 %; Eosinophils % (A) 0 %; HCT 38.2 % (34.0-46.0); HGB 12.1 gm/dL (11.4-16.0); Lymphocytes % (A) 12 %; MCH 28.1 pg (25.0-35.0); MCHC 31.8 g/dL (31.0-37.0); MCV 88.4 fL (80.0-100.0); Mean Platelet Volume 8.2; Monocytes # (A) 0.2 k/uL (0-1.0); Monocytes % (A) 3 %; Neutrophils # (A) 6.7 k/uL (1.3-7.7); Neutrophils % (A) 85 %; Platelet Count 233 k/uL (150-450); RBC 4.32 m/uL (3.80-5.40); RDW 13.7 % (11.5-15.5); WBC 7.9 k/uL (3.8-10.6)
[2020-07-20 09:47] LABS: African American GFR (CKD) >90 (>60 ml/min/1.73 sqM); Anion Gap 4 mmol/L; Blood Urea Nitrogen 15 mg/dL (7-17); Calcium 9.1 mg/dL (8.4-10.2); Carbon Dioxide 28 mmol/L (22-30); Chloride 102 mmol/L (98-107); Magnesium 1.8 mg/dL (1.6-2.3); Non-African American GFR(CKD) >90 (>60 ml/min/1.73 sqM); Phosphorus 3.2 mg/dL (2.5-4.5); Potassium 4.8 mmol/L (3.5-5.1); Sodium 134 mmol/L (137-145)
[2020-07-20] MEDS ORDERED: MAGNESIUM SULFATE-D5W PMX 1 GM in DEXTROSE/WATER 1 100ML.BAG IVPB ONE (10:20)
--- NOTE | 2020-07-20 11:34 | P.PN ---
Subjective Progress Note Date: 07/20/20 CHIEF COMPLAINT: Paraesophageal hiatal hernia HISTORY OF PRESENT ILLNESS: Patient is status post Robotic-assisted da Mayra Xi laparoscopic reduction and repair of initial incarcerated paraesophageal hiatal hernia, 4 x 4 cm, with [place] Biopatch A 8 x 8 cm, Robotic-assisted da Mayra Xi laparoscopic lysis of adhesions and Intraoperative esophagogastroscopy. Patient does report some abdominal pain. She denies any nausea or vomiting. She denies any difficulty with swallowing. She is passing gas. She's currently on bariatric clears. She's afebrile. WBC 7.9 hemoglobin 12.1 magnesium 1.8 Esophagram shows moderate to severe obstruction perhaps related to postoperative edema. Slightly more prominent free air than usual. PHYSICAL EXAM: VITAL SIGNS: Reviewed GENERAL: Well-developed in no acute distress. HEENT: No sclera icterus. Extraocular movements grossly intact. Moist buccal mucosa. Head is atraumatic, normocephalic. Hears conversational speech. No nasal drainage. NECK: Supple without lymphadenopathy. CHEST: Non-labored respirations and equal bilateral excursions. CARDIOVASCULAR: Palpable 2+ radial pulses. ABDOMEN: Soft. Nondistended. Incision sites clean dry and intact MUSCULOSKELETAL: No clubbing or cyanosis. NEUROLOGIC: No focal or lateralizing signs. Cranial nerves II through XII grossly intact. PSYCH: Appropriate affect. Alert and oriented to person, place and time. SKIN: Well perfused. Good skin turgor. ASSESSMENT: 1. Gastroesophageal reflux disease, with erosive esophagitis 2. Paraesophageal hiatal hernia, midline, initial, 4 x 4 cm status post Robo tic-assisted da Mayra Xi laparoscopic reduction and repair of initial incarcerated paraesophageal hiatal hernia, 4 x 4 cm, with [place] Biopatch A 8 x 8 cm, Robotic-assisted da Mayra Xi laparoscopic lysis of adhesions and Intraoperative esophagogastroscopy. 3. History of sleeve gastrectomy 4. Epigastric abdominal pain. 5. Depressive disorder 6. Fibromyalgia 7. Chronic headaches 8. History of sleep apnea 9. History of DVT 10. Peritoneal adhesions PLAN: -Continue dexamethasone 4 grams IV every 6 hours scheduled for moderate to severe obstruction related to postoperative edema -Continue bariatric clear diet -Continue IV fluids -Replace magnesium -Encouraged patient to ambulate and use incentive spirometer -Continue pain medication as needed Physician Air Tank Assembler note has been reviewed by physician. Signing provider agrees with the documented findings, assessment, and plan of care. Objective - Vital Signs Vital signs: Vital Signs Temp 98.5 F 07/20/20 08:22 Pulse 69 07/20/20 08:22 Resp 18 07/20/20 08:22 BP 110/62 07/20/20 08:22 Pulse Ox 97 07/20/20 08:22 Intake & Output 07/19/20 07/20/20 07/20/20 18:59 06:59 18:59 Intake Total 2565 420 240 Output Total 405 225 Balance 2160 195 240 Weight 66.678 kg Intake: IV 1150 Intake, IV Titration 575 Amount Sodium Chloride 0.9% 1, 525 000 ml @ 75 mls/hr IV . [id number] E[facility]INE Rx#:[id number] ceFAZolin 2 gm In Sodium 50 Chloride 0.9% 50 ml @ 100 mls/hr IVPB Q8HR [facility] Rx# :[id number] Oral 840 420 240 Output: Urine 400 225 Estimated Blood Loss 5 Other: # Voids 1 1 - Labs CBC & Chem 7: 07/20/20 08:37 07/20/20 08:37 Labs: Abnormal Lab Results - Last 24 Hours (Table) 07/19/20 07/20/20 Range/Units 12:20 08:37 Sodium 134 L (137-145) mmol/L BUN 24 H (7-17) mg/dL Glucose 114 H (74-99) mg/dL
[2020-07-20 12:38] VITALS: BP 101/58; PULSE 68; TEMP 98.7
[2020-07-20] MEDS ORDERED: TAMSULOSIN 0.4 MG CAP.ER.24H PO STA (13:22)
[2020-07-20] MEDS ORDERED: oxyCODONE-APAP 5-325MG 1 EACH TAB PO PRN (13:32)
--- NOTE | 2020-07-20 15:15 | P.DS ---
Providers Date of admission: 07/19/20 06:24 Expected date of discharge: 07/20/20 Attending physician: Jeni Lentz Primary care physician: Stated None Hospital Course: Discharge diagnosis 1. Gastroesophageal reflux disease, with erosive esophagitis 2. Paraesophageal hiatal hernia, midline, initial, 4 x 4 cm 3. History of sleeve gastrectomy 4. Epigastric abdominal pain. 5. Depressive disorder 6. Fibromyalgia 7. Chronic headaches 8. History of sleep apnea 9. History of DVT 10. Peritoneal adhesions Hospital course This is a 55-year-old female presents with paraesophageal hiatal hernia. She has completed an upper endoscopy workup. Patient is status post Robotic- assisted da Mayra Xi laparoscopic reduction and repair of initial incarcerated paraesophageal hiatal hernia, 4 x 4 cm, with Susan Biopatch A 8 x 8 cm, Robotic- assisted da Mayra Xi laparoscopic lysis of adhesions and Intraoperative esophagogastroscopy. Patient tolerated surgery well. Her esophagram shows moderate to severe obstruction perhaps related to postoperative edema. Slightly more prominent free air than usual. She was treated with dexamethasone. She has no difficulty swallowing. She's tolerating diet. She is up and ambulating. She's afebrile. Her pain is controlled. Patient is stable for discharge home. Physician [employer] note has been reviewed by physician. Signing provider agrees with the documented findings, assessment, and plan of care. Patient Condition at Discharge: Stable Plan - Discharge Summary Discharge Rx Participant: Yes New Discharge Prescriptions: New oxyCODONE HCL/ACETAMINOPHEN [Percocet 5-325 mg] 1 tab PO Q6HR PRN 3 Days #12 tab PRN Reason: Pain Docusate [Colace] 100 mg PO BID #30 capsule Continue Fluticasone Propionate [Flonase Allergy Relief] 2 spray EA NOSTRIL BID PRN PRN Reason: Congestion Ondansetron HCl [Zofran] 8 mg PO Q8H PRN PRN Reason: Nausea Metoprolol Tartrate [Lopressor] 25 mg PO BID Gabapentin 1,600 mg PO BID CHLORPHEN-HYDROcod 8-10mg/5ml [Tussionex] 5 ml PO Q12H PRN PRN Reason: Cough ALPRAZolam [Xanax] 0.25 mg PO BID Cyclobenzaprine [Flexeril] 10 mg PO HS Sertraline HCl [Zoloft] 200 mg PO QAM Desvenlafaxine Succinate [Pristiq] 50 mg PO HS Omeprazole 40 mg PO DAILY #30 capsule. traZODone HCL 50 - 150 mg PO HS Discontinued Vitamin A Acetate [Vitamin A] 10,000 unit SL DAILY Cholecalciferol [Vitamin D3 (25 Mcg = 1000 Iu)] 5,000 unit PO DAILY Cyanocobalamin (Vitamin B-12) [Vitamin B-12] 5,000 mcg PO Q48H Multivitamins, Thera [Multivitamin (formulary)] 1 tab PO DAILY Thiamine HCl [Vitamin B-1] 100 mg PO DAILY Ferrous Sulfate [Iron] 325 mg PO BID Calcium Carbonate [Calcium] 600 mg PO BID Botox 200 mg SQ Q90D Biotin 10,000 mcg PO DAILY Pyridoxine HCl (Vitamin B6) [Vitamin B-6] 100 mg PO DAILY Discharge Medication List Fluticasone Propionate [Flonase Allergy Relief] 2 spray EA NOSTRIL BID PRN 02/23/16 [History] Ondansetron HCl [Zofran] 8 mg PO Q8H PRN 07/20/16 [History] Metoprolol Tartrate [Lopressor] 25 mg PO BID 05/11/17 [History] ALPRAZolam [Xanax] 0.25 mg PO BID 08/12/17 [History] CHLORPHEN-HYDROcod 8-10mg/5ml [Tussionex] 5 ml PO Q12H PRN 08/12/17 [History] Gabapentin 1,600 mg PO BID 08/12/17 [History] Cyclobenzaprine [Flexeril] 10 mg PO HS 08/21/19 [History] Desvenlafaxine Succinate [Pristiq] 50 mg PO HS 08/21/19 [History] Sertraline HCl [Zoloft] 200 mg PO QAM 08/21/19 [History] Omeprazole 40 mg PO DAILY #30 capsule. 09/24/19 [Rx] traZODone HCL 50 - 150 mg PO HS 04/17/20 [History] Docusate [Colace] 100 mg PO BID #30 capsule 07/20/20 [Rx] oxyCODONE HCL/ACETAMINOPHEN [Percocet 5-325 mg] 1 tab PO Q6HR PRN 3 Days #12 tab 07/20/20 [Rx] Follow up [facility]ment(s[facility] [facility] [place] [place] 1 Week Activity/Diet/Wound Care/Special Instructions: No lifting over 4 pounds in 4 weeks until Aug 16. January shower. No bath tub soaks for two weeks until Aug 02 No carbonated beverages. No straws. open and or crush all pills to the size smaller than a TicTac Follow bariatric diet Discharge Disposition: HOME SELF-CARE
== END 2020-07-20 16:37 | disposition home or self-care (01) | DRG 327 ==
LOC: 2ORMAIN 06:24 → 6PED 10:03
PROVIDERS: ADMIT Surgery Plastic and Reconstructive Surgery; ATTEND Surgery Plastic and Reconstructive Surgery
PROC: 0DNW4ZZ Release Peritoneum, Percutaneous Endoscopic Approach (ICD-10-PCS; principal; 2020-07-19 07:30)
PROC: 8E0W4CZ Robotic Assisted Procedure of Trunk Region, Percutaneous Endoscopic Approach (ICD-10-PCS; principal; 2020-07-19 07:30)
PROC: 0BUT4JZ Supplement Diaphragm with Synthetic Substitute, Percutaneous Endoscopic Approach (ICD-10-PCS; principal; 2020-07-19 07:30)
PROC: 0DJ08ZZ Inspection of Upper Intestinal Tract, Via Natural or Artificial Opening Endoscopic (ICD-10-PCS; principal; 2020-07-19 07:30)
DX: K44.0 Diaphragmatic hernia with obstruction, without gangrene (principal); K22.10 Ulcer of esophagus without bleeding; K66.0 Peritoneal adhesions (postprocedural) (postinfection); Z98.84 Bariatric surgery status; F32.9 Major depressive disorder, single episode, unspecified; G89.29 Other chronic pain; I10 Essential (primary) hypertension; K21.9 Gastro-esophageal reflux disease without esophagitis; K21.00 Gastro-esophageal reflux disease with esophagitis, without bleeding; Z80.1 Family history of malignant neoplasm of trachea, bronchus and lung; Z82.49 Family history of ischemic heart disease and other diseases of the circulatory system; Z86.718 Personal history of other venous thrombosis and embolism; Z79.899 Other long term (current) drug therapy; M79.7 Fibromyalgia; Z82.3 Family history of stroke; Z83.2 Family history of diseases of the blood and blood-forming organs and certain disorders involving the immune mechanism; Z88.5 Allergy status to narcotic agent; Z88.8 Allergy status to other drugs, medicaments and biological substances; Z90.89 Acquired absence of other organs
CPT/HCPCS: 74210; 80048; 80051; 82310; 82565; 83735; 84100; 84520; 85025; 85027

== ENCOUNTER → 2020-07-28 | Outpatient (CLI) | payer MEDICARE ==
[2020-07-28 14:26] VITALS: BP 137/85; PULSE 64; RESP 16; TEMP 98; BMI 25.3
--- NOTE | 2020-07-28 14:53 | P.PN ---
Subjective Progress Note Date: 07/28/20 DATE OF SERVICE: 07/28/2020 CHIEF COMPLAINT: Status post gastric bypass HISTORY OF PRESENT ILLNESS: Ana Lilia Hayes is a 55-year-old female who is status post gastric bypass 05/11/2017. She is 3 years out. She is status post hiatal hernia, 07/19/2020. She is less than 14 days out. She reports no trouble with dysphagia. She has lost weight. She reports severe itching. She is on liquid diet. At her height of 5 feet 4-1/4 inches, her ideal body weight is 144 pounds. Her highest weight was 255 pounds. Body mass index was 43.5. Today she comes in 149 pounds from 156 pounds, 3 weeks ago. She lost 7 pounds in 3 weeks. She has lost 106 pounds lifetime. Body mass index down to 25.4. Percent excess weight loss is 96 %. PHYSICAL EXAM: VITAL SIGNS: 5 feet 4.25 inches frame. Weight 149 pounds. Her body mass index 25.4 Vital Signs Temp 98 F 07/28/20 14:24 Pulse 64 07/28/20 14:24 Resp 16 07/28/20 14:24 BP 137/85 07/28/20 14:24 Pulse Ox ABDOMEN: Soft, nontender, nondistended. Incisions are intact. GENERAL: Well-developed female in no acute distress. HEENT: No sclerae icterus. Extraocular movements grossly intact. Moist buccal mucosa. NECK: Supple without lymphadenopathy. CHEST: Nonlabored respirations. Equal bilateral excursions. CARDIOVASCULAR: Regular rate and rhythm. MUSCULOSKELETAL: No clubbing, cyanosis, or edema. NEURO: No focal or lateralizing signs. Cranial nerves II through XII grossly within normal limits. PSYCH: Appropriate affect. Alert and oriented to person, place and time. SKIN: Well-perfused. Good skin turgor. Images reviewed. ASSESSMENT: 1. Morbid obesity due to excess caloric intake. 2. Body mass index reduced from 43.5 down to 26.4 3. Osteoarthritis of the bilateral knees, secondary to morbid obesity, improved. 4. Osteoarthritis of the bilateral feet, secondary to morbid obesity, improved. 5. Osteoarthritis of the lower back, secondary to morbid obesity, improved. 6. Obstructive sleep apnea, resolved. 7. Pseudotumor cerebri, improved. 8. Gastroesophageal reflux disease, resolved. 9. Hypertensive heart disease. 10. Panniculitis. 11. History of binge eating, resolved 12. Status post gastric bypass. 13. Intermittent heart palpitations, resolved 14. Hyperthyroidism. 15. Hematuria PLAN: 1. Recommend dexamethasone for allergies. 2. Recommend food restrictions. 3. Continue full liquid diet. Objective - Vital Signs Vital signs: Vital Signs Temp 98 F 07/28/20 14:24 Pulse 64 07/28/20 14:24 Resp 16 07/28/20 14:24 BP 137/85 07/28/20 14:24 Pulse Ox Intake & Output 07/27/20 07/28/20 07/28/20 18:59 06:59 18:59 Weight 67.585 kg
== END | disposition home or self-care (01) ==
LOC: BARWHC3 13:55
PROVIDERS: ATTEND Surgery Plastic and Reconstructive Surgery
DX: Z48.815 Encounter for surgical aftercare following surgery on the digestive system (principal); E66.01 Morbid (severe) obesity due to excess calories; M17.0 Bilateral primary osteoarthritis of knee; M19.072 Primary osteoarthritis, left ankle and foot; M19.071 Primary osteoarthritis, right ankle and foot; G93.2 Benign intracranial hypertension; I11.9 Hypertensive heart disease without heart failure; E05.90 Thyrotoxicosis, unspecified without thyrotoxic crisis or storm; R31.9 Hematuria, unspecified; M79.3 Panniculitis, unspecified; Z68.26 Body mass index [BMI] 26.0-26.9, adult; Z98.84 Bariatric surgery status
CPT/HCPCS: 99211

== ENCOUNTER → 2020-07-29 | Outpatient (CLI) | payer MEDICARE ==
[~2020-07-29] MED LIST changes: +DEXAMETHASONE SOD PHOSPHATE 10 MG/ML 1 ML VIAL IM ONE; -DEXAMETHASONE SOD PHOSPHATE 4 MG/ML 1 ML VIAL IV ONE; -MIDAZOLAM 2 MG/2 ML VIAL IV PRN; -ONDANSETRON 4 MG/2 ML VIAL IVP ONE; -SCOPOLAMINE 1.5MG/72HR PATCH TRANSDERM ONE
[2020-07-29 11:16] VITALS: BP 122/74; PULSE 16; RESP 16; TEMP 70
== END | disposition home or self-care (01) ==
LOC: PROCWHC3 10:59
PROVIDERS: ATTEND Surgery Plastic and Reconstructive Surgery
DX: T78.40XA Allergy, unspecified, initial encounter (principal)
CPT/HCPCS: 96372; J1100

== ENCOUNTER → 2020-08-18 | Outpatient (CLI) | payer MEDICARE ==
[2020-08-18 14:17] VITALS: BP 160/77; PULSE 72; RESP 18; TEMP 98.4
--- NOTE | 2020-08-18 14:39 | P.PN ---
Subjective Progress Note Date: 08/18/20 DATE OF SERVICE: 08/18/2020 CHIEF COMPLAINT: Status post gastric bypass HISTORY OF PRESENT ILLNESS: Ana Lilia Hayes is a 55-year-old female who is status post gastric bypass 05/11/2017. She is 3 years out. She is status post hiatal hernia, 07/19/2020. She is 1 month out. She reports some epigastric pain. She has mild dysphagia. At her height of 5 feet 4-1/4 inches, her ideal body weight is 144 pounds. Her highest weight was 255 pounds. Body mass index was 43.5. Today she comes in 149 pounds, unchanged from 3 weeks ago. She has lost 106 pounds lifetime. Body mass index down to 25.4. Percent excess weight loss is 96 %. PHYSICAL EXAM: VITAL SIGNS: 5 feet 4.25 inches frame. Weight 149 pounds. Her body mass index 25.4 Vital Signs Temp 98.4 F 08/18/20 14:09 Pulse 72 08/18/20 14:09 Resp 18 08/18/20 14:09 BP 160/77 08/18/20 14:09 Pulse Ox ABDOMEN: Soft, nontender, nondistended. Incisions are intact. GENERAL: Well-developed female in no acute distress. HEENT: No sclerae icterus. Extraocular movements grossly intact. Moist buccal mucosa. NECK: Supple without lymphadenopathy. CHEST: Nonlabored respirations. Equal bilateral excursions. CARDIOVASCULAR: Regular rate and rhythm. MUSCULOSKELETAL: No clubbing, cyanosis, or edema. NEURO: No focal or lateralizing signs. Cranial nerves II through XII grossly within normal limits. PSYCH: Appropriate affect. Alert and oriented to person, place and time. SKIN: Well-perfused. Good skin turgor. ASSESSMENT: 1. Morbid obesity due to excess caloric intake. 2. Body mass index reduced from 43.5 down to 25.4 3. Osteoarthritis of the bilateral knees, secondary to morbid obesity, improved. 4. Osteoarthritis of the bilateral feet, secondary to morbid obesity, improved. 5. Osteoarthritis of the lower back, secondary to morbid obesity, improved. 6. Obstructive sleep apnea, resolved. 7. Pseudotumor cerebri, improved. 8. Gastroesophageal reflux disease, resolved. 9. Hypertensive heart disease. 10. Panniculitis. 11. History of binge eating, resolved 12. Status post gastric bypass. 13. Intermittent heart palpitations, resolved 14. Hyperthyroidism. 15. Hematuria PLAN: 1. Recommend esophogram for persistent dysphagia Objective - Vital Signs Vital signs: Vital Signs Temp 98.4 F 08/18/20 14:09 Pulse 72 08/18/20 14:09 Resp 18 08/18/20 14:09 BP 160/77 08/18/20 14:09 Pulse Ox Intake & Output 08/17/20 08/18/20 08/18/20 18:59 06:59 18:59 Weight 67.585 kg
== END | disposition home or self-care (01) ==
LOC: BARWHC3 14:00
PROVIDERS: ATTEND Surgery Plastic and Reconstructive Surgery
DX: E66.01 Morbid (severe) obesity due to excess calories (principal); M17.0 Bilateral primary osteoarthritis of knee; M19.072 Primary osteoarthritis, left ankle and foot; M19.071 Primary osteoarthritis, right ankle and foot; G93.2 Benign intracranial hypertension; I11.9 Hypertensive heart disease without heart failure; R31.9 Hematuria, unspecified; E05.90 Thyrotoxicosis, unspecified without thyrotoxic crisis or storm; M79.3 Panniculitis, unspecified; Z98.84 Bariatric surgery status; Z68.25 Body mass index [BMI] 25.0-25.9, adult
CPT/HCPCS: 99211

== ENCOUNTER → 2020-08-27 | Outpatient (CLI) | payer MEDICARE ==
--- NOTE | 2020-08-27 12:47 | FL ---
EXAMINATION TYPE: FL barium swallow DATE OF EXAM: 08/27/2020 COMPARISON: 07/19/2020 HISTORY: Status post Samir fundoplication TECHNIQUE: Single contrast technique utilizing thin barium was utilized to evaluate the distal esopha genevieve. FINDINGS: Esophagus dilates to normal caliber and extends to the gastroesophageal junction normally. On the initial image the gastroesophageal junction opens. However, spasm or limited opening is eviden t following. Significant hesitancy passage of contrast is evident. Multiple tertiary contractions are evident during the exam. Secondary contractions are evident. Fluoroscopy time: Not provided Images: 53 IMPRESSION: 1. Significant stenosis through the Samir fundoplication portion of the esophagus. 2. Presbyesophagus
== END | disposition home or self-care (01) ==
LOC: RADUSWWP 11:04
PROVIDERS: ATTEND Surgery Plastic and Reconstructive Surgery
DX: K22.2 Esophageal obstruction (principal); K22.8 Other specified diseases of esophagus; Z98.890 Other specified postprocedural states
CPT/HCPCS: 74220

== ENCOUNTER 2020-10-07 08:41 | Day surgery (SDC) | payer MEDICARE ==
[2020-09-07 09:28] VITALS: BMI 24.9
[~2020-10-07 08:41] MED LIST changes: -DEXAMETHASONE SOD PHOSPHATE 10 MG/ML 1 ML VIAL IM ONE; +LACTATED RINGERS 1,000 ML IV SCH
[2020-10-07 09:08] VITALS: RESP 16; TEMP 97.6
[2020-10-07] MEDS ORDERED: ONDANSETRON 4 MG/2 ML VIAL ONE (09:59)
[2020-10-07] MEDS ORDERED: LIDOCAINE 1% INJ 10MG/ML (20 ML MDV) ONE (09:59)
[2020-10-07] MEDS ORDERED: PROPOFOL 10 MG/ML 20 ML VIAL IV ONE (09:59)
--- NOTE | 2020-10-07 10:33 | P.GSHP ---
History of Present Illness H&P Date: 10/07/20 CHIEF COMPLAINT: Esophageal stricture HISTORY OF PRESENT ILLNESS: The patient is a 55-year-old female who presents reports dysphagia. Upper endoscopy was offered for further evaluation and management. PAST MEDICAL HISTORY: Please see list. PAST SURGICAL HISTORY: Please see list. MEDICATIONS: Please see list. ALLERGIES: Please see list. SOCIAL HISTORY: No illicit drug use FAMILY HISTORY: No reports of Crohn disease or ulcerative colitis. REVIEW OF ORGAN SYSTEMS: CONSTITUTIONAL: No reports of fevers or chills. GI: Denies any blood in stools or constipation. PHYSICAL EXAM: VITAL SIGNS: Stable GENERAL: Well-developed and pleasant in no acute distress. HEENT: No scleral icterus. Extraocular movements grossly intact. Moist buccal mucosa. NECK: Supple without lymphadenopathy. CHEST: Unlabored respirations. Equal bilateral excursions. CARDIOVASCULAR: Regular rate and rhythm. Distal 2+ pulses. ABDOMEN: Soft, nondistended. MUSCULOSKELETAL: No clubbing, cyanosis, or edema. ASSESSMENT: 1. Esophageal stricture PLAN: 1. Recommend proceeding with an upper endoscopy with rigid dilators. Past Medical History Past Medical History: Deep Vein Thrombosis (DVT), Fibromyalgia, GERD/Reflux, Hypertension, Sleep Apnea/CPAP/BIPAP Additional Past Medical History / Comment(s): Chronic headache -gets Botox injections for pain, Sleep Apnea resolved since weight loss, , hx DVT 2012, "Very mild lung scarring, had severe cough X12 yrs", varicose veins, hiatal hernia, kidney stones, History of Any Multi-Drug Resistant Organisms: None Reported Past Surgical History: Appendectomy, Bariatric Surgery, Orthopedic Surgery, Tonsillectomy Additional Past Surgical History / Comment(s): Sinus surgery, bilateral knee surgery, bilateral carpal tunnel surgery, EGD X 4, Gastric Bypass 05-11-17. Past Anesthesia/Blood Transfusion Reactions: Family History of Problems w/ Anesthesia, Postoperative Nausea & Vomiting (PONV) Additional Past Anesthesia/Blood Transfusion Reaction / Comment(s): FAMILY - PONV Past Psychological History: Anxiety, Depression Smoking Status: Never smoker Past Alcohol Use History: Occasional Past Drug Use History: None Reported - Past Family History Mother Family Medical History: Cancer, Deep Vein Thrombosis (DVT) Additional Family Medical History / Comment(s): lung cancer. Sister(s) Family Medical History: Blood Disorder, Deep Vein Thrombosis (DVT) Additional Family Medical History / Comment(s): Factor V. Father Family Medical History: CVA/TIA, Hypertension Brother(s) Family Medical History: CVA/TIA, Hypertension Additional Family Medical History / Comment(s): recent TIA Medications and Allergies Home Medications Medication Instructions Recorded Confirmed Type Fluticasone Propionate [Flonase 2 spray EA NOSTRIL BID PRN 02/23/16 10/04/20 History Allergy Relief] Ondansetron HCl [Zofran] 8 mg PO Q8H PRN 07/20/16 10/04/20 History Metoprolol Tartrate [Lopressor] 25 mg PO BID 05/11/17 10/04/20 History ALPRAZolam [Xanax] 0.25 mg PO BID 08/12/17 10/04/20 History Gabapentin 1,600 mg PO BID 08/12/17 10/04/20 History Cyclobenzaprine [Flexeril] 10 mg PO HS 08/21/19 10/04/20 History Desvenlafaxine Succinate [Pristiq] 50 mg PO HS 08/21/19 10/04/20 History Sertraline HCl [Zoloft] 200 mg PO QAM 08/21/19 10/04/20 History Omeprazole 40 mg PO DAILY #30 capsule. 09/24/19 10/04/20 Rx traZODone HCL 50 - 150 mg PO HS 04/17/20 10/04/20 History Omeprazole [PriLOSEC] 40 mg PO DAILY #14 cap 10/07/20 Rx Allergies Allergy/AdvReac Type Severity Reaction Status Date / Time lamotrigine [From Lamictal] Allergy Rash/Hives Verified 10/07/20 09:08 oxycodone HCl [From Percodan] AdvReac Itching Verified 10/07/20 09:08 oxycodone terephthalate AdvReac Itching Verified 10/07/20 09:08 [From Percodan] propoxyphene napsylate AdvReac Itching Verified 10/07/20 09:08 [From Darvocet-N] Surgical - Exam Vital Signs Temp Pulse Resp BP Pulse Ox 97.6 F 64 16 124/64 99 10/07/20 09:07 10/07/20 09:07 10/07/20 09:07 10/07/20 09:07 10/07/20 09:07
--- NOTE | 2020-10-07 10:46 | P.PCN ---
Date of Procedure: 10/07/20 Description of Procedure: PREOPERATIVE DIAGNOSIS: Dysphagia. Gastroesophageal reflux disease Esophageal stricture Esophageal dysmotility POSTOPERATIVE DIAGNOSIS: Dysphagia. Gastroesophageal reflux disease Gastrojejunal ulcer with stenosis Esophageal dysmotility OPERATION: Esophagogastroduodenoscopy with rigid dilator over the guidewire 51 Fr with dilation of gastrojejunal anastomosis and esophageal. SURGEON: Jeni Lentz MD ANESTHESIA: MAC. INDICATIONS: The patient is a 55-year-old male who presents with a history of dysphagia. Benefits and risks of the procedure were described. Informed consent was obtained. DESCRIPTION: The patient was brought into the endoscopy suite and laid in the left lateral decubitus position. After a timeout was confirmed, the procedure was initiated. An Olympus gastroscope was passed into the posterior oropharynx down to the distal esophagus were smallest 1 cm hiatal hernia recurrence was identified. The scope was entered into the gastric pouch with gastrojejunal ulceration identified, mild. Mild stenosis along the gastrojejunal anastomosis. To address her gastrojejunal stricture including esophageal dysmotility, rigid dilator over guidewire was selected. Next using an Peruvian rigid dilator, a guidewire was placed through the gastroscope. Next the scope was withdrawn. A 51-[place] rigid Peruvian dilator was passed carefully along the posterior oropharynx to 50 cm and left in place for 2-3 minutes stretch. The dilator was withdrawn including the guidewire. The scope was reentered along the posterior oropharynx with no findings of full- thickness tear of the upper esophageal sphincter. No full-thickness injury was encountered. The GI tract was desufflated. The patient tolerated the procedure well. FINDINGS: Gastrojejunal anastomotic stricture with ulceration and stenosis dilated Distal esophageal stricture without ulceration dilated Peruvian rigid dilator 51-[place]ank[place] completed. Less than 1 cm recurrent hiatal hernia RECOMMENDATIONS: Upper endoscopy as needed Start omeprazole 40 mg daily Plan - Discharge Summary Discharge Rx Participant: No New Discharge Prescriptions: New Omeprazole [PriLOSEC] 40 mg PO DAILY #14 cap Continue Fluticasone Propionate [Flonase Allergy Relief] 2 spray EA NOSTRIL BID PRN PRN Reason: Congestion Ondansetron HCl [Zofran] 8 mg PO Q8H PRN PRN Reason: Nausea Metoprolol Tartrate [Lopressor] 25 mg PO BID Gabapentin 1,600 mg PO BID ALPRAZolam [Xanax] 0.25 mg PO BID Cyclobenzaprine [Flexeril] 10 mg PO HS Sertraline HCl [Zoloft] 200 mg PO QAM Desvenlafaxine Succinate [Pristiq] 50 mg PO HS Omeprazole 40 mg PO DAILY #30 capsule. traZODone HCL 50 - 150 mg PO HS Discharge Medication List Fluticasone Propionate [Flonase Allergy Relief] 2 spray EA NOSTRIL BID PRN 02/23/16 [History] Ondansetron HCl [Zofran] 8 mg PO Q8H PRN 07/20/16 [History] Metoprolol Tartrate [Lopressor] 25 mg PO BID 05/11/17 [History] ALPRAZolam [Xanax] 0.25 mg PO BID 08/12/17 [History] Gabapentin 1,600 mg PO BID 08/12/17 [History] Cyclobenzaprine [Flexeril] 10 mg PO HS 08/21/19 [History] Desvenlafaxine Succinate [Pristiq] 50 mg PO HS 08/21/19 [History] Sertraline HCl [Zoloft] 200 mg PO QAM 08/21/19 [History] Omeprazole 40 mg PO DAILY #30 capsule. 09/24/19 [Rx] traZODone HCL 50 - 150 mg PO HS 04/17/20 [History] Omeprazole [PriLOSEC] 40 mg PO DAILY #14 cap 10/07/20 [Rx] Follow up Appointment(s)/[place] [facility] [place] - [place]/13[facility]20 Patient Instructions/Handouts: Peptic Ulcer (DC), Esophageal Dilation (DC) Activity/Diet/Wound Care/Special Instructions: Please take omeprazole for ulcer Discharge Disposition: HOME SELF-CARE
[2020-10-07 10:59] VITALS: BP 122/78; PULSE 65
== END 2020-10-07 11:13 | disposition home or self-care (01) ==
LOC: ORWHC2ENDO 08:41
PROVIDERS: ATTEND Surgery Plastic and Reconstructive Surgery
DX: K95.89 Other complications of other bariatric procedure (principal); K22.2 Esophageal obstruction; K44.9 Diaphragmatic hernia without obstruction or gangrene; K28.9 Gastrojejunal ulcer, unspecified as acute or chronic, without hemorrhage or perforation; Z86.718 Personal history of other venous thrombosis and embolism; M79.7 Fibromyalgia; K21.9 Gastro-esophageal reflux disease without esophagitis; I10 Essential (primary) hypertension; R51.9 Headache, unspecified; J98.4 Other disorders of lung; I83.90 Asymptomatic varicose veins of unspecified lower extremity; Z87.442 Personal history of urinary calculi; Z90.49 Acquired absence of other specified parts of digestive tract; Z90.89 Acquired absence of other organs; Z98.890 Other specified postprocedural states; F41.9 Anxiety disorder, unspecified; F32.9 Major depressive disorder, single episode, unspecified; Z82.49 Family history of ischemic heart disease and other diseases of the circulatory system; Z80.1 Family history of malignant neoplasm of trachea, bronchus and lung; Z83.2 Family history of diseases of the blood and blood-forming organs and certain disorders involving the immune mechanism; Z82.3 Family history of stroke; Z79.899 Other long term (current) drug therapy; Z88.5 Allergy status to narcotic agent; Z88.8 Allergy status to other drugs, medicaments and biological substances
CPT/HCPCS: 43245; J2405; J2001; J2704

== ENCOUNTER → 2020-10-13 | Outpatient (CLI) | payer MEDICARE ==
--- NOTE | 2020-10-13 16:40 | P.PN ---
Subjective Progress Note Date: 10/13/20 DATE OF SERVICE: 10/13/2020 CHIEF COMPLAINT: Status post gastric bypass HISTORY OF PRESENT ILLNESS: Ana Lilia Hayes is a 55-year-old female who is status post gastric bypass 05/11/2017. She is 3 years out. She is status post hiatal hernia, 07/19/2020. She is less than 3 months out. She is status post upper endoscopy. She still has mild dysphagia to solid foods with epigastric fullness. She is moving to [place]. At her height of 5 feet 4-1/4 inches, her ideal body weight is 144 pounds. Her highest weight was 255 pounds. Body mass index was 43.5. Today she comes in 153 pounds from 149 pounds, 2 months. She has gained 4 pounds. She has lost 102 pounds lifetime. Body mass index down to 26.1. Percent excess weight loss is 92%. PHYSICAL EXAM: VITAL SIGNS: 5 feet 4.25 inches frame. Weight 153 pounds. Her body mass index 26.1 Vital Signs Temp 98.1 F 10/13/20 16:57 Pulse 76 10/13/20 16:57 Resp 16 10/13/20 16:57 BP 145/77 10/13/20 16:57 Pulse Ox ABDOMEN: Soft, nontender, nondistended. Incisions are intact. GENERAL: Well-developed female in no acute distress. HEENT: No sclerae icterus. Extraocular movements grossly intact. Moist buccal mucosa. NECK: Supple without lymphadenopathy. CHEST: Nonlabored respirations. Equal bilateral excursions. CARDIOVASCULAR: Regular rate and rhythm. MUSCULOSKELETAL: No clubbing, cyanosis, or edema. NEURO: No focal or lateralizing signs. Cranial nerves II through XII grossly within normal limits. PSYCH: Appropriate affect. Alert and oriented to person, place and time. SKIN: Well-perfused. Good skin turgor. ASSESSMENT: 1. Morbid obesity due to excess caloric intake. 2. Body mass index reduced from 43.5 down to 26.1 3. Osteoarthritis of the bilateral knees, secondary to morbid obesity, improved. 4. Osteoarthritis of the bilateral feet, secondary to morbid obesity, improved. 5. Osteoarthritis of the lower back, secondary to morbid obesity, improved. 6. Obstructive sleep apnea, resolved. 7. Pseudotumor cerebri, improved. 8. Gastroesophageal reflux disease, resolved. 9. Hypertensive heart disease. 10. Panniculitis. 11. History of binge eating, resolved 12. Status post gastric bypass. 13. Intermittent heart palpitations, resolved 14. Hyperthyroidism. 15. Dysphagia PLAN: 1. She still has dysphagia. Recommend repeat esophogram. Objective - Vital Signs Vital signs: Intake & Output 10/12/20 10/13/20 10/13/20 18:59 06:59 18:59 Weight 69.4 kg
[2020-10-13 16:58] VITALS: BP 145/77; PULSE 76; RESP 16; TEMP 98.1; BMI 26.0
== END | disposition home or self-care (01) ==
LOC: BARWHC3 16:12
PROVIDERS: ATTEND Surgery Plastic and Reconstructive Surgery
DX: E66.01 Morbid (severe) obesity due to excess calories (principal); M17.0 Bilateral primary osteoarthritis of knee; M19.072 Primary osteoarthritis, left ankle and foot; M19.071 Primary osteoarthritis, right ankle and foot; M47.9 Spondylosis, unspecified; G93.2 Benign intracranial hypertension; E03.9 Hypothyroidism, unspecified; I11.9 Hypertensive heart disease without heart failure; R13.10 Dysphagia, unspecified; M79.3 Panniculitis, unspecified; Z98.84 Bariatric surgery status; Z68.26 Body mass index [BMI] 26.0-26.9, adult
CPT/HCPCS: 99211

== ENCOUNTER → 2020-10-22 | Outpatient (CLI) | payer MEDICARE ==
--- NOTE | 2020-10-22 12:15 | FL ---
ESOPHOGRAM. HISTORY: Dysphagia Esophagram was performed per the air contrast technique. The patient swallowed barium and effervesce nt crystals without difficulty or delay. Esophageal peristalsis and motility appear to be within normal limits. There is no evidence for filling defect, mass or diverticulum. No hiatal hernia seen. Subsequently single contrast cervical esophagram was performed which fails demonstrate evidence for a spiration penetration or mass. IMPRESSION: Unremarkable study.
== END | disposition home or self-care (01) ==
LOC: RADUSWWP 10:08
PROVIDERS: ATTEND Surgery Plastic and Reconstructive Surgery
DX: R13.10 Dysphagia, unspecified (principal)
CPT/HCPCS: 74220

== ENCOUNTER → 2020-10-27 | Outpatient (CLI) | payer MEDICARE ==
--- NOTE | 2020-10-28 12:16 | MM ---
Reason for exam: screening (asymptomatic). Last mammogram was performed 1 year and 2 months ago. History: Patient is postmenopausal and is nulliparous. Family history of breast cancer in maternal grandmother at age 40. Physical Findings: A clinical breast exam by your physician is recommended on an annual basis and results should be correlated with mammographic findings. MG 3D Screening Mammo W/Cad Bilateral CC and MLO view(s) were taken. Prior study comparison: August 11, 2019, bilateral MG 3d screening mammo w/cad. July 17, 2018, bilateral MG 3d screening mammo w/cad. The breast tissue is heterogeneously dense. This may lower the sensitivity of mammography. There is no discrete abnormality. No significant changes when compared with prior studies. ASSESSMENT: Negative, BI-RAD 1 RECOMMENDATION: Routine screening mammogram of both breasts in 1 year.
== END | disposition home or self-care (01) ==
LOC: RADMAMWWP 07:27
PROVIDERS: ATTEND Obstetrics & Gynecology
DX: Z12.31 Encounter for screening mammogram for malignant neoplasm of breast (principal); Z80.3 Family history of malignant neoplasm of breast
CPT/HCPCS: 77063; 77067

== ENCOUNTER → 2020-11-10 | Outpatient (CLI) | payer MEDICARE ==
--- NOTE | 2020-11-10 17:30 | BD ---
EXAMINATION TYPE: Axial Bone Density DATE OF EXAM: 11/10/2020 COMPARISON: 07/17/2018 CLINICAL HISTORY: Postmenopausal screening Height: 64 Weight: 148.7 FRAX RISK QUESTIONS: Alcohol (3 or more units per day): no Family History (Parent hip fracture): no Glucocorticoids (More than 3mos): no (Ex: prednisone, prednisolone, methylprednisolone, dexamethasone, and hydrocortisone). History of Fracture in Adulthood: no Secondary Osteoporosis: 1. Type 1 Diabetes: no 2. Hyperthyroidism: no 3. Menopause before 45: no 4. Malnutrition: no 5. Chronic liver disease: no Rheumatoid Arthritis: no Current Tobacco Use: no RISK FACTORS HISTORY OF: Surgery to Spine/Hip(right/left)/Wrist (right/left): no Family History of Osteoporosis: no Active: yes Diet low in dairy products/other sources of calcium: yes Postmenopausal woman: age 50 Lost more than 2 inches in height since high school: no MEDICATIONS: zoloft , xanax, Metroprolol, gabapentin, prestique Additional History: EXAM MEASUREMENTS: Bone mineral densitometry was performed using the [employer] System. Bone mineral density as measured about the Lumbar spine is: ----- L1-L4(G/cm2): 0.899 T Score Values are as follows: ----- L2: -3.3 ----- L3: -2.1 ----- L4: -1.8 ----- L1-L4: -2.3 Bone mineral density has: decreased -6.4 % since study of: 07.17.2018 Bone mineral density about the R hip (g/cm2): 0.793 Bone mineral density about the L hip (g/cm2): 0.849 T Score values are as follows: -----R Neck: -1.8 -----L Neck: -1.4 -----R Total: -1.2 -----L Total: -1.4 Bone mineral density has: decreased -12.4 % since study of: 07.17.2018 IMPRESSION: Osteopenia (T Score between -2.5 and -1). There is slightly increased risk of fracture and the patient may be considered for treatment. Re-Screen 2-5 years. NOTE: T-SCORE=SD OF THE YOUNG ADULT MEAN.
== END ==
LOC: RADBDWWP 09:22
PROVIDERS: ATTEND Obstetrics & Gynecology
DX: Z13.820 Encounter for screening for osteoporosis (principal); M85.89 Other specified disorders of bone density and structure, multiple sites
CPT/HCPCS: 77080

== ENCOUNTER 2021-06-25 10:03 | Emergency (ER) | payer MEDICARE ==
[2021-06-25 10:25] VITALS: BP 97/53; RESP 18
--- NOTE | 2021-06-25 11:07 | XR ---
EXAMINATION TYPE: XR chest 2V DATE OF EXAM: 06/25/2021 COMPARISON: 05/06/2020 HISTORY: Cough TECHNIQUE: Frontal and lateral views of the chest are obtained. FINDINGS: There is no focal air space opacity, pleural effusion, or pneumothorax seen. The cardiac silhouette size is within normal limits. The osseous structures are intact. IMPRESSION: No acute cardiopulmonary process.
--- NOTE | 2021-06-25 11:49 | ED ---
General Adult HPI - General Chief complaint: Upper Respiratory Infection Stated complaint: post op-cough Time Seen by Provider: 06/25/21 10:36 Source: patient, RN notes reviewed Mode of arrival: ambulatory Limitations: no limitations - History of Present Illness Initial comments: Patient is a 55-year-old female presenting to the emergency department with concerns of a cough that just started this morning. Patient had a breast augmentation, and tummy tuck yesterday at [facility]. Her surgery was in the morning, she was discharged by 3 PM. She states when she woke up this morning she has had a cough, green phlegm production. She states she's had a cough over the past week but worsened this morning. She did call her surgeon who recommended coming in to the ER for evaluation. She denies any chest pains, no shortness of breath. Her pain seems to be well-controlled postsurgery. She does admit to history of DVT that was many years ago, she is currently not on blood thinners. She denies any fevers, she had a rapid Covid test prior to her surgery. She has no further complaints. - Related Data Home Medications Medication Instructions Recorded Confirmed Fluticasone Propionate [Flonase 2 spray EA NOSTRIL BID PRN 02/23/16 10/14/20 Allergy Relief] Ondansetron HCl [Zofran] 8 mg PO Q8H PRN 07/20/16 10/14/20 Metoprolol Tartrate [Lopressor] 25 mg PO BID 05/11/17 10/14/20 ALPRAZolam [Xanax] 0.25 mg PO BID 08/12/17 10/14/20 Gabapentin 1,600 mg PO BID 08/12/17 10/14/20 Cyclobenzaprine [Flexeril] 10 mg PO HS 08/21/19 10/14/20 Desvenlafaxine Succinate [Pristiq] 50 mg PO HS 08/21/19 10/14/20 Sertraline HCl [Zoloft] 200 mg PO QAM 08/21/19 10/14/20 traZODone HCL 50 - 150 mg PO HS 04/17/20 10/14/20 Previous Rx's Medication Instructions Recorded Omeprazole 40 mg PO DAILY #30 [place]. 09/24/19 Omeprazole [PriLOSEC] 40 mg PO DAILY #14 cap 10/07/20 Azithromycin [Zithromax Z-pack (6 0 mg PO DIRECTED #6 tab 06/25/21 tabs)] Benzonatate [Tessalon Perles] 100 mg PO TID PRN #15 cap 06/25/21 Allergies Allergy/AdvReac Type Severity Reaction Status Date / Time lamotrigine [From Lamictal] Allergy Rash/Hives Verified 06/25/21 10:25 oxycodone HCl [From Percodan] AdvReac Itching Verified 06/25/21 10:25 oxycodone terephthalate AdvReac Itching Verified 06/25/21 10:25 [From Percodan] propoxyphene napsylate AdvReac Itching Verified 06/25/21 10:25 [From Darvocet-N] Review of Systems ROS Statement: Those systems with pertinent positive or pertinent negative responses have been documented in the HPI. ROS Other: All systems not noted in ROS Statement are negative. Past Medical History Past Medical History: Deep Vein Thrombosis (DVT), Fibromyalgia, GERD/Reflux, Hy pertension, Sleep Apnea/CPAP/BIPAP Additional Past Medical History / Comment(s): Chronic headache -gets Botox injections for pain, Sleep Apnea resolved since weight loss, , hx DVT 2012, "Very mild lung scarring, had severe cough X12 yrs", varicose veins, hiatal hernia, kidney stones, History of Any Multi-Drug Resistant Organisms: None Reported Past Surgical History: Appendectomy, Bariatric Surgery, Breast Surgery, Orthopedic Surgery, Tonsillectomy Additional Past Surgical History / Comment(s): Sinus surgery, bilateral knee surgery, bilateral carpal tunnel surgery, EGD X 4, Gastric Bypass 05-11-17. breast augmentation with abdinoplasty on 06/24/21 Past Anesthesia/Blood Transfusion Reactions: Family History of Problems w/ Anesthesia, Postoperative Nausea & Vomiting (PONV) Additional Past Anesthesia/Blood Transfusion Reaction / Comment(s): FAMILY - PONV Past Psychological History: Anxiety, Depression Smoking Status: Never smoker Past Alcohol Use History: Occasional Past Drug Use History: None Reported - Past Family History Mother Family Medical History: Cancer, Deep Vein Thrombosis (DVT) Additional Family Medical History / Comment(s): lung cancer. Sister(s) Family Medical History: Blood Disorder, Deep Vein Thrombosis (DVT) Additional Family Medical History / Comment(s): Factor V. Father Family Medical History: CVA/TIA, Hypertension Brother(s) Family Medical History: CVA/TIA, Hypertension Additional Family Medical History / Comment(s): recent TIA General Exam - General Exam Comments Initial Comments: GENERAL: Patient is well-developed and well-nourished. Patient is nontoxic and in no acute distress. HEAD: Atraumatic, normocephalic. EYES: Pupils equal round and reactive to light, extraocular movements intact, sclera anicteric, conjunctiva are normal. Eyelids were unremarkable. ENT: Nares patent, oropharynx clear without exudates. Moist mucous membranes. NECK: Normal range of motion, supple without lymphadenopathy or JVD. LUNGS: Unlabored respirations. Breath sounds clear to auscultation bilaterally and equal. No wheezes rales or rhonchi. Mild wet cough noted. HEART: Regular rate and rhythm without murmurs, rubs or gallops. ABDOMEN: Soft, mildly discomfort, one day post surgery, normoactive bowel sounds. Patient has abdominal binder and drains present MUSCULOSKELETAL: Normal extremities with adequate strength and normal range of motion, no pitting or edema. No clubbing or cyanosis. No pain in her calfs. NEUROLOGICAL: Patient is alert and oriented x 3. Normal speech, normal gait. PSYCH: Normal mood, normal affect. SKIN: Warm, Dry, normal turgor, no rashes or lesions noted. Limitations: no limitations Course Vital Signs 06/25/21 06/25/21 06/25/21 10:21 10:50 11:59 Temperature 99.2 F 100.1 F H 99.4 F Pulse Rate 74 Respiratory 18 Rate Blood Pressure 97/53 O2 Sat by Pulse 98 Oximetry 06/25/21 13:00 Temperature Pulse Rate 76 Respiratory Rate Blood Pressure O2 Sat by Pulse 97 Oximetry Medical Decision Making - Medical Decision Making Patient is a 55-year-old female, one day post breast augmentation, tumsary lyman, presenting for cough that increased today. No fevers, or pain has been well- controlled. She has had a mild cough over the past week. She has some green phlegm production. Rapid Covid today is negative, chest x-ray showed no acute abnormality. She'll be treated for upper respiratory infection, she is currently on Keflex postsurgery, I will give her azithromycin and also recommended a cough suppressant. She is agreeable this plan of care. She'll follow-up with her doctors. Return parameters were discussed with her and she verbalized understanding. - Lab Data Lab Results 06/25/21 Range/Units 11:05 Coronavirus (PCR) Not Detected (Not Detectd) Disposition Clinical Impression: Upper respiratory infection, Cough Disposition: HOME SELF-CARE Condition: Stable Instructions (If sedation given, give patient instructions): Upper Respiratory Infection (ED) Additional Instructions: Please return to the Emergency Department if symptoms worsen or any other concerns. Take antibiotic as prescribed. May use cough suppressant as needed. Follow-up with your doctor. Prescriptions: Benzonatate [Tessalon Perles] 100 mg PO TID PRN #15 cap PRN Reason: Cough Azithromycin [Zithromax Z-pack (6 tabs)] 0 mg PO DIRECTED #6 tab Is patient prescribed a controlled substance at d/c from ED?: No Referrals: Wes Hinton DO [Primary Care Provider] - 1-2 days Time of Disposition: 13:00
[2021-06-25 12:00] VITALS: TEMP 99.4
[2021-06-25 13:08] VITALS: PULSE 76
== END 2021-06-25 13:07 | disposition home or self-care (01) ==
LOC: EC 10:03
DX: J06.9 Acute upper respiratory infection, unspecified (principal); I10 Essential (primary) hypertension; K21.9 Gastro-esophageal reflux disease without esophagitis; M79.7 Fibromyalgia; G47.30 Sleep apnea, unspecified; F41.9 Anxiety disorder, unspecified; F32.9 Major depressive disorder, single episode, unspecified; Z86.718 Personal history of other venous thrombosis and embolism; Z87.442 Personal history of urinary calculi; Z20.822 Contact with and (suspected) exposure to COVID-19; Z88.5 Allergy status to narcotic agent; Z90.49 Acquired absence of other specified parts of digestive tract; Z98.84 Bariatric surgery status
CPT/HCPCS: 71046; 87635; 99284

== ENCOUNTER → 2022-02-17 | Outpatient (CLI) | payer MEDICARE ==
[2022-02-17 14:13] LABS: HGB 13.7 g/dL (12.0-15.0); MCH 26.7 pg (27.0-32.0); MCHC 30.4 g/dL (32.0-37.0); MCV 87.7 fL (80.0-97.0); Mean Platelet Volume 10.7 fL (9.5-12.2); NRBC Per 100 WBC 0 /100 WBCS (0.0-0.0); Platelet Count 229 X 10*3/uL (140-440); RBC 5.13 X 10*6/uL (4.10-5.20); RDW 12.9 % (11.5-14.5); WBC 6.83 X 10*3/uL (4.50-10.00)
[2022-02-17 14:41] LABS: ALT 23 U/L (8-44); AST 24 U/L (13-35); African American GFR (CKD) 85.5 (60.0-200.0); Albumin 4.1 g/dL (3.8-4.9); Albumin/Globulin Ratio 2.46 (1.60-3.17); Alkaline Phosphatase 108 U/L (41-126); BUN/Creat Ratio 20.18 Ratio (12.00-20.00); Blood Urea Nitrogen 17.5 mg/dL (9.0-27.0); Calcium 9.6 mg/dL (8.7-10.3); Carbon Dioxide 30.5 mmol/L (20.0-27.5); Chloride 106 mmol/L (96-109); Chol/HDL Ratio 2.26 Ratio; Globulin 1.7 g/dL (1.6-3.3); Glucose 86 mg/dL (70-110); LDL Cholesterol,Calculated 94.9 mg/dL (0.0-131.0); Non-African American GFR(CKD) 73.7 (60.0-200.0); Potassium 4.8 mmol/L (3.5-5.5); Sodium 146 mmol/L (135-145); Total Protein 5.8 g/dL (6.2-8.2); VLDL Calculation 12.64 mg/dL (5.00-40.00)
[2022-02-17 15:04] LABS: Erythrocyte Sedimentation Rate 1 mm/Hr (0-30)
== END | disposition home or self-care (01) ==
LOC: LABWHC1 08:07
PROVIDERS: ATTEND Psychiatry & Neurology Psychiatry
DX: F33.1 Major depressive disorder, recurrent, moderate (principal)
CPT/HCPCS: 36415; 80053; 80061; 84439; 84443; 85027; 85652

== ENCOUNTER 2022-03-15 09:31 | Emergency (ER) | payer MEDICARE ==
[2022-03-15 10:07] VITALS: RESP 16; TEMP 98.1
--- NOTE | 2022-03-15 11:12 | ED ---
Extremity Problem HPI - General Chief complaint: Extremity Problem,Nontraumatic Stated complaint: Lt leg pain/History of blood clots Time Seen by Provider: 03/15/22 10:08 Source: patient, RN notes reviewed Mode of arrival: ambulatory Limitations: no limitations - History of Present Illness Initial comments: 56-year-old female sent emergency Department with chief complaint of left leg pain. Patient has history DVT. Patient states she's been off her elbows for 2 weeks. Patient states that she started developing pain 4 days ago. Denies any chest pain or shortness of breath. Patient states that there is pain when she palpates over the area or when she walks. Patient denies any fevers or chills patient denies any trauma no recent long distance traveling no other complaints. - Related Data Home Medications Medication Instructions Recorded Confirmed Fluticasone Propionate [Flonase 2 spray EA NOSTRIL BID PRN 02/23/16 10/14/20 Allergy Relief] Ondansetron HCl [Zofran] 8 mg PO Q8H PRN 07/20/16 10/14/20 Metoprolol Tartrate [Lopressor] 25 mg PO BID 05/11/17 10/14/20 ALPRAZolam [Xanax] 0.25 mg PO BID 08/12/17 10/14/20 Gabapentin 1,600 mg PO BID 08/12/17 10/14/20 Cyclobenzaprine [Flexeril] 10 mg PO HS 08/21/19 10/14/20 Desvenlafaxine Succinate [Pristiq] 50 mg PO HS 08/21/19 10/14/20 Sertraline HCl [Zoloft] 200 mg PO QAM 08/21/19 10/14/20 traZODone HCL 50 - 150 mg PO HS 04/17/20 10/14/20 Previous Rx's Medication Instructions Recorded Omeprazole 40 mg PO DAILY #30 capsule. 09/24/19 Omeprazole [PriLOSEC] 40 mg PO DAILY #14 cap 10/07/20 Azithromycin [Zithromax Z-pack (6 0 mg PO DIRECTED #6 tab 06/25/21 tabs)] Benzonatate [Tessalon Perles] 100 mg PO TID PRN #15 cap 06/25/21 Allergies Allergy/AdvReac Type Severity Reaction Status Date / Time lamotrigine [From Lamictal] Allergy Rash/Hives Verified 03/15/22 10:06 oxycodone HCl [From Percodan] AdvReac Itching Verified 03/15/22 10:06 oxycodone terephthalate AdvReac Itching Verified 03/15/22 10:06 [From Percodan] propoxyphene napsylate AdvReac Itching Verified 03/15/22 10:06 [From Darvocet-N] Review of Systems ROS Statement: Those systems with pertinent positive or pertinent negative responses have been documented in the HPI. ROS Other: All systems not noted in ROS Statement are negative. Past Medical History Past Medical History: Deep Vein Thrombosis (DVT), Fibromyalgia, GERD/Reflux, Hypertension, Sleep Apnea/CPAP/BIPAP Additional Past Medical History / Comment(s): Chronic headache -gets Botox injections for pain, Sleep Apnea resolved since weight loss, , hx DVT 2012, "Very mild lung scarring, had severe cough X12 yrs", varicose veins, hiatal hernia, kidney stones, History of Any Multi-Drug Resistant Organisms: None Reported Past Surgical History: Appendectomy, Bariatric Surgery, Breast Surgery, Orthopedic Surgery, Tonsillectomy Additional Past Surgical History / Comment(s): Sinus surgery, bilateral knee surgery, bilateral carpal tunnel surgery, EGD X 4, Gastric Bypass 05-11-17. breast augmentation with abdinoplasty on 06/24/21 Past Anesthesia/Blood Transfusion Reactions: Family History of Problems w/ Anesthesia, Postoperative Nausea & Vomiting (PONV) Additional Past Anesthesia/Blood Transfusion Reaction / Comment(s): FAMILY - PONV Past Psychological History: Anxiety, Depression Smoking Status: Never smoker Past Alcohol Use History: Occasional Past Drug Use History: None Reported - Past Family History Mother Family Medical History: Cancer, Deep Vein Thrombosis (DVT) Additional Family Medical History / Comment(s): lung cancer. Sister(s) Family Medical History: Blood Disorder, Deep Vein Thrombosis (DVT) Additional Family Medical History / Comment(s): Factor V. Father Family Medical History: CVA/TIA, Hypertension Brother(s) Family Medical History: CVA/TIA, Hypertension Additional Family Medical History / Comment(s): recent TIA General Exam Limitations: no limitations General appearance: alert, in no apparent distress Head exam: Present: atraumatic, normocephalic, normal inspection Respiratory exam: Present: normal lung sounds bilaterally. Absent: respiratory distress, wheezes, rales, rhonchi, stridor Cardiovascular Exam: Present: regular rate, normal rhythm, normal heart sounds. Absent: systolic murmur, diastolic murmur, rubs, gallop, clicks Extremities exam: Present: other (Bilateral lower extremity neurovascular intact, no open wounds lesions or sores, there is palpable pain over the left calf, thigh region equal color equal warmth) Skin exam: Present: warm, dry, intact, normal color. Absent: rash Course Vital Signs 03/15/22 03/15/22 10:04 11:22 Temperature 98.1 F Pulse Rate 86 75 Respiratory 16 16 Rate Blood Pressure 153/87 150/83 O2 Sat by Pulse 100 100 Oximetry Medical Decision Making - Medical Decision Making Ultrasound a negative acute DVT. Patient has left leg pain, left leg strain, patient will discharged in stable condition return parameters discussed. Disposition Clinical Impression: Left leg pain, Leg strain Disposition: HOME SELF-CARE Condition: Stable Instructions (If sedation given, give patient instructions): Leg Pain (ED) Additional Instructions: Please return to the Emergency Department if symptoms worsen or any other concerns. Is patient prescribed a controlled substance at d/c from ED?: No Referrals: Wes Hinton DO [Primary Care Provider] - 1-2 days Time of Disposition: 11:55
--- NOTE | 2022-03-15 11:24 | US ---
EXAMINATION TYPE: US venous doppler duplex LE LT DATE OF EXAM: 03/15/2022 11:17 AM COMPARISON: US 06/30/19 CLINICAL HISTORY: pain. Left calf pain. Hx of DVT. Patient just got off of blood thinners 2 weeks ago . SIDE PERFORMED: Left TECHNIQUE: The lower extremity deep venous system is examined utilizing real time linear array sonog hesham with graded compression, doppler sonography and color-flow sonography. VESSELS IMAGED: Common Femoral Vein Deep Femoral Vein Greater Saphenous Vein * Femoral Vein Popliteal Vein Small Saphenous Vein * Proximal Calf Veins (* superficial vessels) There is normal flow, compressibility, vascular waveforms. Left Leg: Negative for DVT IMPRESSION: No evident deep venous thrombosis within the deep veins of the left lower extremity from the level of the knee centrally
[2022-03-15 11:25] VITALS: BP 150/83; PULSE 75
== END 2022-03-15 12:01 | disposition home or self-care (01) ==
LOC: EC 09:31
DX: S86.912A Strain of unspecified muscle(s) and tendon(s) at lower leg level, left leg, initial encounter (principal); S76.912A Strain of unspecified muscles, fascia and tendons at thigh level, left thigh, initial encounter; I10 Essential (primary) hypertension; K21.9 Gastro-esophageal reflux disease without esophagitis; M79.7 Fibromyalgia; F32.A Depression, unspecified; F41.9 Anxiety disorder, unspecified; Z86.718 Personal history of other venous thrombosis and embolism; Z79.899 Other long term (current) drug therapy; X58.XXXA Exposure to other specified factors, initial encounter
CPT/HCPCS: 99283

== ENCOUNTER → 2022-05-11 | Outpatient (CLI) | payer MEDICARE ==
--- NOTE | 2022-05-11 12:05 | XR ---
EXAMINATION TYPE: XR cervical spine w flex/ext DATE OF EXAM: 05/11/2022 COMPARISON: NONE HISTORY: cervicalgia TECHNIQUE: Five views including extension and flexion lateral are submitted. FINDINGS: The odontoid is intact. There are no compression deformities. The prevertebral soft tissue structur es are within normal limits. Mild multilevel hypertrophic spurring with posterior spondylosis. There is minimal anterolisthesis of C2 on 3, C3 on 4 and C4 on C5 on flexion which is not present on exten александр views. Diffuse osteopenia noted. IMPRESSION: 1. Multilevel hypertrophic and degenerative change with anterolisthesis of 2 to 3 mm noted on flexion views correcting on extension and neutral views..
[2022-05-11 18:02] LABS: HCT 43.4 % (37.2-46.3); HGB 13.6 g/dL (12.0-15.0); MCH 27.2 pg (27.0-32.0); MCHC 31.3 g/dL (32.0-37.0); MCV 86.8 fL (80.0-97.0); Mean Platelet Volume 10.2 fL (9.5-12.2); NRBC Per 100 WBC 0 /100 WBCS (0.0-0.0); Platelet Count 252 X 10*3/uL (140-440); WBC 6.46 X 10*3/uL (4.50-10.00)
[2022-05-11 18:30] LABS: ALT 15 U/L (8-44); AST 19 U/L (13-35); African American GFR (CKD) 87.8 (60.0-200.0); Albumin 3.9 g/dL (3.8-4.9); Alkaline Phosphatase 102 U/L (41-126); BUN/Creat Ratio 21.11 Ratio (12.00-20.00); Blood Urea Nitrogen 17.9 mg/dL (9.0-27.0); Calcium 9.7 mg/dL (8.7-10.3); Carbon Dioxide 27.5 mmol/L (20.0-27.5); Chloride 105 mmol/L (96-109); Chol/HDL Ratio 2.27 Ratio; Globulin 2.1 g/dL (1.6-3.3); Glucose 94 mg/dL (70-110); LDL Cholesterol,Calculated 89.9 mg/dL (0.0-131.0); Non-African American GFR(CKD) 75.7 (60.0-200.0); Potassium 4.3 mmol/L (3.5-5.5); Sodium 142 mmol/L (135-145); VLDL Calculation 17.72 mg/dL (5.00-40.00)
[2022-05-11 21:55] LABS: Appearance,Urine Cloudy (Clear); Bacteria,Urine None Seen /HPF (None Seen); Bilirubin,Urine Negative (Negative); Blood,Urine Negative (Negative); Color,Urine Yellow (Yellow); Ketones,Urine Negative (Negative); Nitrite,Urine Negative (Negative); PH, Urine 5.5 (5.0-8.0); Specific Gravity,Urine 1.024 (1.001-1.030); Urobilinogen,Urine 0.2 (0.2,1.0)
== END | disposition home or self-care (01) ==
LOC: RADXRMAIN 11:28
PROVIDERS: ATTEND Psychiatry & Neurology Pain Medicine
DX: Z00.01 Encounter for general adult medical examination with abnormal findings (principal); M47.812 Spondylosis without myelopathy or radiculopathy, cervical region; M43.12 Spondylolisthesis, cervical region
CPT/HCPCS: 72052; 80053; 80061; 81001; 82306; 83036; 85027

== ENCOUNTER → 2022-05-23 | Outpatient (CLI) | payer MEDICARE ==
[~2022-05-23] MED LIST changes: -LACTATED RINGERS 1,000 ML IV SCH; +SODIUM CHLORIDE 0.9% 500 ML 500 ML in EMPTY BAG 1 BAG IV PRN; +ZOLEDRONIC ACID 5 MG in SODIUM CHLORIDE 0.9% 100 ML IV NR
[2022-05-23 12:10] VITALS: BP 129/77; PULSE 74; RESP 16; TEMP 98.1
== END ==
LOC: PROCWHC3 11:39
PROVIDERS: ATTEND Internal Medicine
DX: M81.0 Age-related osteoporosis without current pathological fracture (principal); Z88.5 Allergy status to narcotic agent; Z88.8 Allergy status to other drugs, medicaments and biological substances
CPT/HCPCS: 96365; J3489

== ENCOUNTER → 2022-07-21 | Outpatient (CLI) | payer MEDICARE ==
--- NOTE | 2022-07-24 19:15 | MM ---
Reason for Exam: Hx of breast augmentation, asymptomatic. Last mammogram was performed 1 year(s) and 9 month(s) ago. Patient History: Menarche at age 11. Patient has no children. Postmenopausal. 07/04/2021, Bilateral Implants. Maternal grandmother had breast cancer, age 40. Risk Values: Ivonne 5 year model risk: 1.5%. NCI Lifetime model risk: 8.3%. Prior Study Comparison: 07/17/2018 Bilateral Screening Mammogram, [facility]. 08/11/2019 Bilateral Screening Mammogram, [facility]. 10/27/2020 Bilateral Screening Mammogram, [facility]. Tissue Density: The breast tissue is heterogeneously dense. This may lower the sensitivity of mammography. Findings: Analyzed By CAD. Interval placement of new bilateral retropectoral silicone implants. There is no suspicious group of microcalcifications or new suspicious mass in either breast. Overall Assessment: Benign, BI-RAD 2 Management: Screening Mammogram of both breasts in 1 year. 1. Patient should continue monthly self breast exams. 2. A clinical breast exam by your physician is recommended on an annual basis. 3. This exam should not preclude additional follow-up of suspicious palpable abnormalities. Electronically signed and approved by: Autumn Zapata M.D. Radiologist
== END | disposition home or self-care (01) ==
LOC: RADMAMWWP 13:27
PROVIDERS: ATTEND Obstetrics & Gynecology
DX: Z12.31 Encounter for screening mammogram for malignant neoplasm of breast (principal); Z78.0 Asymptomatic menopausal state; Z80.3 Family history of malignant neoplasm of breast
CPT/HCPCS: 77063; 77067

== ENCOUNTER → 2023-03-19 | Outpatient (CLI) | payer MEDICARE ==
--- NOTE | 2023-03-19 15:02 | BD ---
EXAMINATION TYPE: Axial Bone Density DATE OF EXAM: 03/19/2023 CLINICAL HISTORY: 57 years old Female. ICD-10 CODE: M81.0 AGE-RELATED OSTEOPOROSIS W/O CURRENT PATHO LO Height: 63.5in Weight: 150lb FRAX RISK QUESTIONS: Secondary Osteoporosis: RISK FACTORS HISTORY OF: Family History of Osteoporosis: yes Active: yes Postmenopausal woman: yes MEDICATIONS: Osteoporosis Medications: Which medication: Fosamax How Lon dose Additional Medications: cardiac meds, tums, calcium with vitamin d Additional History: EXAM MEASUREMENTS: Bone mineral densitometry was performed using the [employer]. Bone mineral density as measured about the Lumbar spine is: ----- L1-L4(G/cm2): 0.876 T Score Values are as follows: ----- L1: -3.2 ----- L2: -3.4 ----- L3: -2.0 ----- L4: -1.9 ----- L1-L4: -2.5 Z Score Values are as follows: ----- L1: -2.2 ----- L2: -2.3 ----- L3: -1.0 ----- L4: -0.9 ----- L1-L4: -1.5 Bone mineral density has: Decreased -2.6% since study of: 11-10-20 Bone mineral density about the R hip (g/cm2): 0.822 Bone mineral density about the L hip (g/cm2): 0.872 T Score values are as follows: -----R Neck: -2.0 -----L Neck: -1.7 -----R Total: -1.5 -----L Total: -1.1 Z Score values are as follows: -----R Neck: -0.8 -----L Neck: -0.5 -----R Total: -0.6 -----L Total: -0.3 Bone mineral density has: Increased 0.1% since study of: 11-10-20 FRAX%s: The graph provided illustrates a 9.4% chance for a major osteoporotic fx and a 1.2% chance fo r the hips probability for fx in 10 years time. IMPRESSION: Osteopenia (T Score between -2.5 and -1). There is slightly increased risk of fracture and the patient may be considered for treatment. Re-Screen 2-5 years. NOTE: T-SCORE=SD OF THE YOUNG ADULT MEAN.
== END | disposition home or self-care (01) ==
LOC: RADBDWWP 10:32
PROVIDERS: ATTEND Internal Medicine
DX: M85.89 Other specified disorders of bone density and structure, multiple sites (principal); M81.0 Age-related osteoporosis without current pathological fracture; Z78.0 Asymptomatic menopausal state; Z82.62 Family history of osteoporosis
CPT/HCPCS: 77080

== ENCOUNTER → 2023-03-29 | Outpatient (CLI) | payer MEDICARE ==
[2023-03-29 16:13] LABS: Basophils # (A) 0.04 X 10*3/uL (0.00-0.10); Basophils % (A) 0.6 %; Eosinophils # (A) 0.05 X 10*3/uL (0.04-0.35); Eosinophils % (A) 0.7 %; HCT 42.3 % (37.2-46.3); HGB 12.9 d/dL (12.0-15.0); Lymphocytes # (A) 1.74 X 10*3/uL (0.90-5.00); Lymphocytes % (A) 24.9 %; MCH 25.6 pg (27.0-32.0); MCHC 30.5 d/dL (32.0-37.0); MCV 83.9 FL (80.0-97.0); Mean Platelet Volume 10.7 FL (9.5-12.2); Monocytes # (A) 0.34 X 10*3/uL (0.20-1.00); Monocytes % (A) 4.9 %; NRBC Per 100 WBC 0 X 10*3/uL (0.00-0.01); Neutrophils # (A) 4.79 X 10*3/uL (1.80-7.70); Neutrophils % (A) 68.6 %; Platelet Count 303 X 10*3/uL (140-440); RBC 5.04 X 10*6/uL (4.10-5.20); RDW 14.7 % (11.5-14.5); WBC 6.98 X 10*3/uL (4.50-10.00)
[2023-03-29 16:34] LABS: BUN/Creat Ratio 17.11 Ratio (12.00-20.00); Blood Urea Nitrogen 15.4 mg/dL (9.0-27.0); Chloride 106 mmol/L (96-109); Chol/HDL Ratio 2.13 Ratio; Glucose 88 mg/dL (70-110); LDL Cholesterol,Calculated 94.6 mg/dL (0.0-131.0); Potassium 4.7 mmol/L (3.5-5.5); Sodium 145 mmol/L (135-145); VLDL Calculation 11.88 mg/dL (5.00-40.00)
[2023-03-29 16:35] LABS: ALT 15 U/L (8-44); AST 20 U/L (13-35); Albumin 4.2 d/dL (3.8-4.9); Albumin/Globulin Ratio 2.21 Ratio (1.60-3.17); Alkaline Phosphatase 85 U/L (41-126); Calcium 9.9 mg/dL (8.7-10.3); Carbon Dioxide 29.1 mmol/L (21.6-31.8); Globulin 1.9 d/dL (1.6-3.3); Total Bilirubin 0.3 mg/dL (0.3-1.2); Total Protein 6.1 d/dL (6.2-8.2)
[2023-03-29 18:46] LABS: C-Peptide 1.46 ng/mL (0.81-3.85)
== END | disposition home or self-care (01) ==
LOC: LABWHC1 11:40
PROVIDERS: ATTEND Family Medicine
DX: E11.9 Type 2 diabetes mellitus without complications (principal); E55.9 Vitamin D deficiency, unspecified; M81.0 Age-related osteoporosis without current pathological fracture
CPT/HCPCS: 36415; 80053; 80061; 82306; 83036; 83970; 84681; 85025

== ENCOUNTER → 2023-05-24 | Outpatient (CLI) | payer MEDICARE ==
[2023-05-24 16:05] VITALS: BP 152/89; PULSE 93; RESP 15; TEMP 98
== END ==
LOC: PROCWHC3 11:41
PROVIDERS: ATTEND Internal Medicine
DX: M81.0 Age-related osteoporosis without current pathological fracture (principal)
CPT/HCPCS: 96365; J3489

== ENCOUNTER → 2024-02-29 | Outpatient (CLI) | payer MEDICARE ==
--- NOTE | 2024-03-03 13:41 | MM ---
Reason for Exam: Screening (asymptomatic). Last mammogram was performed 1 year(s) and 7 month(s) ago. Patient History: Menarche at age 11. Patient has no children. Postmenopausal. 07/04/2021, Bilateral Implants. Maternal grandmother had breast cancer, age 40. Risk Values: Ivonne 5 year model risk: 1.6%. NCI Lifetime model risk: 8.1%. Prior Study Comparison: 08/11/2019 Bilateral Screening Mammogram, [facility]. 10/27/2020 Bilateral Screening Mammogram, [facility]. 07/21/2022 Bilateral MG 3D screen mammo imp/cad., [facility]. Tissue Density: The breasts are heterogeneously dense, which may obscure small masses. Findings: Analyzed By CAD. Right breast: There is no suspicious group of microcalcifications or new suspicious mass. Left breast: There is no suspicious group of microcalcifications or new suspicious mass. Bilateral breast implants appear intact. Right breast: There is no suspicious group of microcalcifications or new suspicious mass. Left breast: There is no suspicious group of microcalcifications or new suspicious mass. Overall Assessment: Negative, BI-RAD 1 Management: Screening Mammogram of both breasts in [address] [facility] will attempt to contact patient to return for supplemental views and ultrasound if indicated. Patient should continue monthly self-breast exams. A clinical breast exam by your physician is recommended on an annual basis. This exam should not preclude additional follow-up of suspicious palpable abnormalities. Note on Ivonne scores and lifetime risk: 1. A Ivonne score greater than 3% is considered moderate risk. If this is the case, consider specialist referral to assess eligibility for a risk reducing agent. 2. If overall lifetime risk for the development of breast cancer is 20% or higher, the patient may qualify for future screening with alternating mammogram and breast MRI. Electronically signed and approved by: Teto Bowden DO
== END | disposition home or self-care (01) ==
LOC: RADMAMWWP 11:17
PROVIDERS: ATTEND Family Medicine
DX: Z12.31 Encounter for screening mammogram for malignant neoplasm of breast (principal); Z78.0 Asymptomatic menopausal state; Z80.3 Family history of malignant neoplasm of breast
CPT/HCPCS: 77063; 77067

== ENCOUNTER → 2024-04-14 | Outpatient (CLI) | payer MEDICARE ==
--- NOTE | 2024-05-06 16:03 | US ---
Site ID [facility] Patient Ana Lilia Hayes M ID [id number] Age/Gender: 58Y, F Order # N/A Procedure US PELVIC COMPLETE Date 04/14/2024 3:06:00 PM EXAMINATION TYPE: US pelvic complete DATE OF EXAM: 05/03/2024 COMPARISON: NONE CLINICAL INDICATION: Female, 58 year old with history of pelvic pain. TECHNIQUE: Transabdominal (TA). Transabdominal sonographic images of the pelvis were acquired. EXAM MEASUREMENTS: Uterus: 6.2 x 2.9 x 4.4 cm Endometrial Stripe: 0.7 cm Right Ovary: 2.1 x 0.8 x 1.0 cm Left Ovary: 2.2 x 1.2 x 1.4 cm 1. Uterus: Anteverted wnl 2. Endometrium: Minimally thickened 3. Right Ovary: wnl 4. Left Ovary: wnl 5. Bilateral Adnexa: wnl 6. Posterior cul-de-sac: wnl IMPRESSION: Minimally thickened endometrium measuring 0.7 cm for patient's age. This can be seen with endometrial hyperplasia versus other etiologies. Consider short-term follow-up exam.
== END | disposition home or self-care (01) ==
LOC: RADUSWWP 14:59
PROVIDERS: ATTEND Family Medicine
DX: N94.10 Unspecified dyspareunia (principal); R93.89 Abnormal findings on diagnostic imaging of other specified body structures
CPT/HCPCS: 76856

== ENCOUNTER → 2024-12-10 | Outpatient (CLI) | payer MEDICARE ==
--- NOTE | 2024-12-10 15:37 | XR ---
EXAMINATION TYPE: XR KUB DATE OF EXAM: 12/10/2024 2:35 PM COMPARISON: 07/10/2019 CLINICAL INDICATION: Female, 59 years old with history of R31.1 Micro Hematuria HX of Stones; ashley BABB in TECHNIQUE: One radiographic view of the abdomen was obtained. FINDINGS: Gassy small bowel loops and colon with moderate stool. Air and stool extends distally to th e rectum. Surgical material left paramedian upper abdomen related to prior bowel surgery. Some mildly dilated small bowel loops measure up to 3.7 cm. Bowel contents largely obscures the renal shadows. Supine imaging limited for assessment of free air. IMPRESSION: 1. Very gassy bowel throughout and moderate stool burden. Several small bowel loops are mildly dilate d up to 3.7 cm. Consider ileus or enteritis. 2. Bowel content largely [facility], , 12/10/2024 3:35 PM
== END | disposition home or self-care (01) ==
LOC: RADXRMAIN 14:23
PROVIDERS: ATTEND Urology
DX: R31.1 Benign essential microscopic hematuria (principal); R19.5 Other fecal abnormalities
CPT/HCPCS: 74018